=== PATIENT | male | born 1950 | race Caucasian/White ===

== ENCOUNTER 2017-09-22 14:37 | Observation (INO) | payer BC ==
[2017-09-22] MEDS ORDERED: BABY ASPIRIN 81 MG CHEW PO ONE (16:44)
--- NOTE | 2017-09-22 16:49 | ERPHSYRPT ---
- History of Present Illness Source: patient Exam Limitations: no limitations Patient Subjective Stated Complaint: intermittent pain to left forearm and left rib starting 2 to 3 days ago. denies injury. states felt better after being in the pool yesterday Triage Nursing Assessment: alert and orientd in n o distress. staes pain to left forearm and left lower ribs x 3 days.. comes and goes. denies injury. lungs clear bilaterally. staes has had cough x 3 days non productive. no deformity of pain to left forearm.. + radial pulse present Timing/Duration: day(s) (3 days) Severity: moderate Modifying Factors: Improves With: nothing Associated Symptoms: chest pain (pain left lateral ribs sharp), No nausea, No vomiting, No abdominal pain, No shortness of breath, No heartburn, No diaphoresis, No cough, No chills, No fever, No headaches, No loss of appetite, No malaise, No rash, No syncope, No seizure, No weakness Hx Tetanus, Diphtheria Vaccination/Date Given: No Hx Influenza Vaccination/Date Given: Yes (2011) Immunizations Up to Date: (unknown) <BETTY NAVARRO - Last Filed: 09/22/17 19:32> <YULIA GAMEZ - Last Filed: 09/23/17 01:42> - History of Present Illness Time Seen by Provider: 09/22/17 16:26 Physician History: 66-year-old white male with history of atherosclerotic coronary artery disease, hypercholesterolemia, high blood pressure arrives with complaints of pain in his left forearm and localize pain overlying his left lateral ribs, described as sharp continuous for 2-3 days not associated with shortness of breath no nausea no vomiting. Past medical history includes diabetes type 1, hypercholesterolemia, high blood pressure Degenerative disc disease Past surgical history includes cardiac stent, valve replacement, orthopedic surgery, (BETTY NAVARRO) Allergies/Adverse Reactions: No Known Drug Allergies Allergy (Unverified 06/30/12 10:35) Home Medications: Aspirin [Baby Aspirin] 81 mg PO DAILY 06/30/12 [History] Simvastatin 40 mg [Zocor 40 mg] 40 mg PO DAILY 06/05/13 [History] Docusate Sodium 100 mg [Colace 100 MG] 100 mg PO BID 09/22/17 [History] Isosorbide Mononitrate 30 mg [Imdur 30 MG] 30 mg PO DAILY 09/22/17 [History ] Losartan/Hydrochlorothiazide [Losartan-Hctz 100-25 mg Tab] 0.5 tablet PO DAILY 09/22/17 [History] Metformin HCl [Metformin HCl ER] 500 mg PO BID 09/22/17 [History] Metoprolol Tartrate 25 mg [Lopressor 25MG Tab] 25 mg PO BID 09/22/17 [ History] Pioglitazone HCl 15 mg PO DAILY 09/22/17 [History] - Review of Systems Constitutional: No Fever, No Chills Eyes: No Symptoms Ears, Nose, & Throat: No Symptoms Respiratory: No Cough, No Dyspnea Cardiac: Chest Pain (pain left lateral ribs sharp) Abdominal/Gastrointestinal: No Abdominal Pain, No Nausea, No Vomiting, No Diarrhea Genitourinary Symptoms: No Dysuria Musculoskeletal: Other (sharp pain left forearm) Skin: No Rash Neurological: No Dizziness, No Focal Weakness, No Sensory Changes Psychological: No Symptoms Endocrine: No Symptoms All Other Systems: Reviewed and Negative <BETTY NAVARRO - Sha Filed: 09/22/17 19:32> - Past Medical History Pertinent Past Medical History: Yes Neurological History: No Pertinent History ENT History: No Pertinent History Cardiac History: High Cholesterol, Hypertension Respiratory History: No Pertinent History Endocrine Medical History: Diabetes Type I Musculoskeletal History: No Pertinent History GI Medical History: No Pertinent History History: No Pertinent History Psycho-Social History: No Pertinent History Male Reproductive Disorders: No Pertinent History - Past Surgical History Past Surgical History: Yes Neuro Surgical History: No Pertinent History Cardiac: Cardiac Stent, Valve Replacement Gastrointestinal: No Pertinent History Genitourinary: No Pertinent History Musculoskeletal: Orthopedic Surgery Male Surgical History: No Pertinent History Other Surgical History: 2009 back,disc with annel and screws placed - Social History Smoking Status: Never smoker Exposure to second hand smoke: No Alcohol Use: None Drug Use: none Patient Lives Alone: No Significant Family History: no pertinent family hx <BETTY NAVARRO Filed: 09/22/17 19:32> - Physical Exam General Appearance: no apparent distress, alert Eye Exam: PERRL/EOMI, eyes nml inspection Ears, Nose, Throat Exam: normal ENT inspection, TMs normal, pharynx normal, moist mucous membranes Neck Exam: normal inspection, non-tender, supple, full range of motion Respiratory Exam: normal breath sounds, lungs clear, No respiratory distress Cardiovascular Exam: regular rate/rhythm, normal heart sounds, normal peripheral pulses Gastrointestinal/Abdomen Exam: soft, normal bowel sounds, No tenderness, No mass Back Exam: normal inspection, normal range of motion, No CVA tenderness, No vertebral tenderness Extremity Exam: normal inspection, normal range of motion, pelvis stable Neurologic Exam: alert, oriented x 3, cooperative, 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, normal mood/affect, nml cerebellar function, nml station & gait, sensation nml, No motor deficits Skin Exam: normal color, warm, dry, No rash SpO2 Interpretation: normal (97%) SpO2: 97 Oxygen Delivery: Room Air <BETTY NAVARRO - Last Filed: 09/22/17 19:32> - Nursing Vital Signs Nursing Vital Signs: Initial Vital Signs Temperature 97.8 F 09/22/17 14:50 Pulse Rate 73 09/22/17 14:50 Respiratory Rate 18 09/22/17 14:50 Blood Pressure 154/82 09/22/17 14:50 O2 Sat by Pulse Oximetry 98 09/22/17 14:50 Pain Scale Pain Intensity 0 - Course Nursing assessment & vital signs reviewed: Yes EKG Interpreted by Me: RATE (66 bpm), Sinus Rhythm, NORMAL AXIS, Other (EKG: sinus rhythm, complete left bundle-block, normal axis, no old EKG for comparison ) <BETTY NAVARRO - Last Filed: 09/22/17 19:32> Ordered Tests: Active Orders 24 hr Category Date Time Status Bedrest with BRP/BSC ROUTINE Activity 09/22/17 20:25 Active Hand Mold Maker STAT Care 09/22/17 16:44 Completed Code Status Order ROUTINE Care 09/22/17 20:25 Active EKG-ER Only STAT Care 09/22/17 16:44 Completed IV Care Q6H Care 09/22/17 20:25 Completed IV Insertion STAT Care 09/22/17 16:44 Completed Implement Chest Pain Pathway ROUTINE Care 09/22/17 20:[address] in Observation ROUTINE Care 09/22/17 20:25 Active Saji Hose, Apply ROUTINE Care 09/22/17 20:25 Active Telemetry ROUTINE Care 09/22/17 20:25 Active Weight,Daily 0600 Care 09/22/17 20:25 Active Cardiac Diet Diet 09/22/17 Breakfast Active CHEST 1 VIEW (PORTABLE) Stat Exams 09/22/17 16:44 Completed CHEST WITH CONTRAST [CT] Stat Exams 09/22/17 18:20 Completed CBC W DIFF Stat Lab 09/22/17 16:40 Completed CMP Stat Lab 09/22/17 16:40 Completed D-DIMER QUANTITATION Stat Lab 09/22/17 16:40 Completed LIPID PROFILE AM.LAB Lab 09/23/17 04:00 Ordered TROPONIN Q3H Lab 09/22/17 16:45 Completed TROPONIN Q3H Lab 09/22/17 19:45 Completed TROPONIN Q3H Lab 09/22/17 22:45 Completed TROPONIN Q3H Lab 09/23/17 01:45 Ordered TROPONIN Q3H Lab 09/23/17 04:45 Ordered EKG Q8HX2,QAMX3,PRN RT 09/22/17 20:25 Completed Pulse Oximetry Q4H RT 09/22/17 20:25 Active Medication Summary Generic Name Dose Route Start Last Admin Trade Name Freq PRN Reason Stop Dose Admin Acetaminophen 650 mg 09/22/17 20:25 Tylenol 325 Mg PO 10/22/17 20:24 Q4H PRN PRN PAIN AND/OR FEVER Al Hydrox/Mg Hydrox/Simethicone 30 ml 09/22/17 20:25 Maalox Es 30 Ml Unit Dose PO 10/22/17 20:24 Q4H PRN PRN INDIGESTION Aspirin 325 mg 09/23/17 10:00 Ecotrin 325 Mg PO 10/23/17 09:59 DAILY ROSENDA Docusate Sodium 100 mg 09/22/17 23:00 09/22/17 23:29 Colace 100 Mg PO 10/22/17 22:59 100 mg BID ROSENDA Administration Magnesium Hydroxide 30 - 60 ml 09/22/17 20:25 Milk Of Magnesia 30 Ml PO 10/22/17 20:24 QDP PRN CONSTIPATION Metoprolol Tartrate 25 mg 09/22/17 23:00 09/22/17 23:29 Lopressor 25mg Tab PO 10/22/17 22:59 25 mg BID ROSENDA Administration Ondansetron HCl 4 mg 09/22/17 20:25 Zofran 4 Mg/2 Ml Vial IV 10/22/17 20:24 Q4H PRN PRN NAUSEA/VOMITING Senna/Docusate Sodium 2 udtab 09/22/17 20:25 Senokot-S Tablet PO 10/22/17 20:24 BID PRN PRN CONSTIPATION Discontinued Medications Generic Name Dose Route Start Last Admin Trade Name Freq PRN Reason Stop Dose Admin Aspirin 243 mg 09/22/17 16:44 09/22/17 17:00 Baby Aspirin 81 Mg Chew PO 09/22/17 16:45 243 mg STAT ONE Administration Lab/Rad Data: Laboratory Result Diagrams 09/22/17 16:40 09/22/17 16:40 Laboratory Results 09/22/17 09/22/17 09/22/17 Range/Units 19:45 16:45 16:40 WBC (4.0-10.5) K/mm3 RBC (4.1-5.6) M/mm3 Hgb (12.5-18.0) gm/dl Hct (42-50) % MCV (78-100) fl MCH (26-32) pg MCHC (32-36) g/dl RDW (11.5-14.0) % Plt Count (150-450) K/mm3 MPV (6-9.5) fl Gran % (36.0-66.0) % Eos # (Auto) (0-0.5) Absolute Lymphs (auto) (1.0-4.6) Absolute Monos (auto) (0.0-1.3) Lymphocytes % (24.0-44.0) % Monocytes % (0.0-12.0) % Eosinophils % (0.00-5.0) % Basophils % (0.0-0.4) % Absolute Granulocytes (1.4-6.9) Basophils # (0-0.4) D-Dimer 1068 H* (215-500) ng/mL Sodium (137-145) mmol/L Potassium (3.5-5.1) mmol/L Chloride (98-107) mmol/L Carbon Dioxide (22-30) mmol/L Anion Gap (5-15) MEQ/L BUN (9-20) mg/dL Creatinine (0.66-1.25) mg/dL Estimated GFR ML/MIN Glucose (74-106) mg/dL Calcium (8.4-10.2) mg/dL Total Bilirubin (0.2-1.3) mg/dL AST (17-59) U/L ALT (0-50) U/L Alkaline Phosphatase (38-126) U/L Troponin I < 0.012 < 0.012 (0.000-0.034) ng/mL Serum Total Protein (6.3-8.2) g/dL Albumin (3.5-5.0) g/dL 09/22/17 09/22/17 Range/Units 16:40 16:40 WBC 7.1 (4.0-10.5) K/mm3 RBC 4.74 (4.1-5.6) M/mm3 Hgb 13.6 (12.5-18.0) gm/dl Hct 40.2 L (42-50) % MCV 84.8 (78-100) fl MCH 28.7 (26-32) pg MCHC 33.8 (32-36) g/dl RDW 15.6 H (11.5-14.0) % Plt Count 236 (150-450) K/mm3 MPV 11.1 H (6-9.5) fl Gran % 49.5 (36.0-66.0) % Eos # (Auto) 0.78 H (0-0.5) Absolute Lymphs (auto) 2.16 (1.0-4.6) Absolute Monos (auto) 0.62 (0.0-1.3) Lymphocytes % 30.5 (24.0-44.0) % Monocytes % 8.7 (0.0-12.0) % Eosinophils % 11.0 H (0.00-5.0) % Basophils % 0.3 (0.0-0.4) % Absolute Granulocytes 3.51 (1.4-6.9) Basophils # 0.02 (0-0.4) D-Dimer (215-500) ng/mL Sodium 140 (137-145) mmol/L Potassium 4.1 (3.5-5.1) mmol/L Chloride 103 (98-107) mmol/L Carbon Dioxide 27 (22-30) mmol/L Anion Gap 15.3 H (5-15) MEQ/L BUN 20 (9-20) mg/dL Creatinine 0.83 (0.66-1.25) mg/dL Estimated GFR > 60.0 ML/MIN Glucose 120 H (74-106) mg/dL Calcium 9.5 (8.4-10.2) mg/dL Total Bilirubin 0.20 (0.2-1.3) mg/dL AST 19 (17-59) U/L ALT 15 (0-50) U/L Alkaline Phosphatase 78 (38-126) U/L Troponin I (0.000-0.034) ng/mL Serum Total Protein 7.2 (6.3-8.2) g/dL Albumin 4.2 (3.5-5.0) g/dL - Progress Progress: improved <BETTY NAVARRO - Last Filed: 09/22/17 19:32> <YULIA GAMEZ - Last Filed: 09/23/17 01:42> - Progress Progress Note: 09/22/17 18:47 66-year-old white male with history of atherosclerotic coronary artery disease hypercholesterolemia high blood pressure diabetes, degenerative disc disease with history of cardiac stent valve replacement Arrives with complaint of left-sided of forearm pain sharp also complaining of left-sided chest pain sharp symptoms for 3 days Patient with elevated d-dimer of 1.068 patient's chest x-ray no acute changes EKG shows a complete left bundle-branch block I do not have an old EKG for comparison patient with 66 bpm normal axis Patient's troponin is within normal limits at less than 0.012 chest x-ray is unremarkable chemistry otherwise essentially normal with the exception of a glucose of 120 and an anion gap of 15.3 CBC is essentially normal I've discussed the patient's case with Dr. Harris she would like to place patient on observation telemetry and obtain serial troponins. However she would like to get a CTA of his chest this is been ordered and is pending. 09/22/17 18:50 Patient has received aspirin 243 mg orally He took 81 mg at home 09/22/17 19:30 The patient's case was trnsferred to dr Agosto secondary to shift change case was discussed with Dr Gamez. (BETTY NAVARRO) 09/22/17 20:23 The CTA chest is within normal limits. The patient is currently asymptomatic and has received ASA. Pt is a high risk patient and has been admitted to Dr Harris for chest pain. (YULIA GAMEZ) <BETTY NAVARRO - Last Filed: 09/22/17 19:32> - Departure Time of Disposition: 20:24 Departure Disposition: Observation Critical Care Time: No <YULIA GAMEZ - Last Filed: 09/23/17 01:42> - Departure Clinical Impression: Chest pain Qualifiers: Chest pain type: unspecified Qualified Code(s): R07.9 - Chest pain, unspecified Condition: Stable
[2017-09-22 16:51] LABS: BASOPHIL % 0.3 % (0.0-0.4); Basophil (Absolute #) 0.02 (0-0.4); Eosinophil (Absolute #) 0.78 (0-0.5); Granulocyte Absolute (ANC) 3.51 (1.4-6.9); Granulocytes % 49.5 % (36.0-66.0); Hematocrit 40.2 % (42-50); Hemoglobin 13.6 gm/dl (12.5-18.0); Lymphocyte (Absolute #) 2.16 (1.0-4.6); Lymphocytes % 30.5 % (24.0-44.0); Mean Cell Volume 84.8 fl (78-100); Mean Corpuscular Hemoglobin 28.7 pg (26-32); Mean Corpuscular Hgb Concent. 33.8 g/dl (32-36); Mean Platelet Volume 11.1 fl (6-9.5); Monocyte (Absolute #) 0.62 (0.0-1.3); Monocytes % 8.7 % (0.0-12.0); Platelet Count 236 K/mm3 (150-450); Red Blood Count 4.74 M/mm3 (4.1-5.6); Red Cell Distribution Width 15.6 % (11.5-14.0); White Blood Count 7.1 K/mm3 (4.0-10.5)
[2017-09-22 17:14] LABS: ALBUMIN 4.2 g/dL (3.5-5.0); ALKALINE PHOSPHATASE 78 U/L (38-126); ANION GAP 15.3 MEQ/L (5-15); BLOOD UREA NITROGEN 20 mg/dL (9-20); CHLORIDE 103 mmol/L (98-107); Calcium 9.5 mg/dL (8.4-10.2); Carbon Dioxide 27 mmol/L (22-30); Creatinine 1 0.83 mg/dL (0.66-1.25); Glucose 120 mg/dL (74-106); Potassium 4.1 mmol/L (3.5-5.1); SGOT/AST 19 U/L (17-59); SGPT/ALT 15 U/L (0-50); SODIUM 140 mmol/L (137-145); Total Protein 7.2 g/dL (6.3-8.2)
[2017-09-22] MEDS ORDERED: MILK OF MAGNESIA 30 ML PO PRN (20:25)
[2017-09-22] MEDS ORDERED: Zofran 4 MG/2 ML VIAL IV PRN (20:25)
[2017-09-22] MEDS ORDERED: MAALOX ES 30 ML UNIT DOSE PO PRN (20:25)
[2017-09-22] MEDS ORDERED: Senokot-S Tablet PO PRN (20:25)
[2017-09-22] MEDS ORDERED: TYLENOL 325 MG PO PRN (20:25)
--- NOTE | 2017-09-22 22:35 | XRAY ---
Indication: Chest pain. Elevated d-dimer. Multiple contiguous axial images obtained through the chest using 80 cc Isovue 370 contrast and PE protocol. Comparison: None There is satisfactory opacification of the pulmonary arteries to include the lobar and segmental branches. However mild respiration artifact limits evaluation of the more distal lobar and segmental branches. No filling defect or pulmonary embolus. Heart is not enlarged and demonstrates previous cardiac valvular replacement surgery. Aorta is normal in course and caliber. Left perihilar and subcarinal calcified nodes. No pathologic mediastinal lymphadenopathy. Examination of the lung parenchyma demonstrates anatomic variant for azygos lobe. Minimal bilateral dependent atelectasis and bibasilar subsegmental atelectasis/scarring. 3 mm noncalcified nodule in the posterior right upper lobe (image 18, series 4) and peripheral right lower lobe (image 32, series 4). No infiltrate or effusion. Bony thorax intact. Limited upper abdomen demonstrates fatty liver and calcified splenic granulomas. Impression: 1. Mild respiration artifact. No obvious pulmonary embolus. 2. Right upper and right lower lobe noncalcified micronodules. Findings possibly granulomatous as there is evidence for old granulomatous disease elsewhere. 3. Fatty liver. Comment: Preliminary interpretation was made by [facility]. No critical discrepancy. CTDI 20.07
--- NOTE | 2017-09-22 22:46 | XRAY ---
Indication: Pain. Comparison: None Portable chest underinflated and clear. Heart is not enlarged and demonstrates previous cardiac valvular replacement surgery. Bony thorax intact. Impression: Nonacute underinflated chest.
[2017-09-22] MEDS: Lopressor 25MG Tab PO SCH (23:29)
[2017-09-22] MEDS: Colace 100 MG PO SCH (23:29)
--- NOTE | 2017-09-23 00:21 | PCM.HP ---
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 He started having constant L lower chest pain that he is unable to characterize, denies accompanying nausea, diaphoresis, or SOB. His L arm was also having constant pain. It was a little better with swimming. Now his arm pain is resolved and the chest pain is 1-2/10. His d-dimer was elevated but his CTA chest was negative for PE. EKG with LBBB but no comparison available; wide QRS with J point elevation but does not appear acute. He was admitted for chest pain rule out [place]. Troponins neg x 2. Dr. Farooq did his valve replacement and the pt states he was on warfarin x 3 mo but was told to stop it at that time and now he takes an 81mg ASA daily. - Review of Systems Respiratory: Cough Cardiac: Chest Pain Musculoskeletal: Other (L arm pain) All Other Systems: Reviewed and Negative Medications & Allergies Home Medications: Home Medication List Aspirin [Baby Aspirin] 81 mg PO DAILY 06/30/12 [History Confirmed 09/22/17] Simvastatin 40 mg [Zocor 40 mg] 40 mg PO DAILY 06/05/13 [History Confirmed 09/22] Docusate Sodium 100 mg [Colace 100 MG] 100 mg PO BID 09/22/17 [History Confirmed 09/22/17] Isosorbide Mononitrate 30 mg [Imdur 30 MG] 30 mg PO DAILY 09/22/17 [ History Confirmed 09/22/17] Losartan/Hydrochlorothiazide [Losartan-Hctz 100-25 mg Tab] 0.5 tablet PO DAILY 09/22/17 [History Confirmed 09/22/17] Metformin HCl [Metformin HCl ER] 500 mg PO BID 09/22/17 [History Confirmed 09/22] Metoprolol Tartrate 25 mg [Lopressor 25MG Tab] 25 mg PO BID 09/22/17 [ History Confirmed 09/22/17] Pioglitazone HCl 15 mg PO DAILY 09/22/17 [History Confirmed 09/22/17] Allergies/Adverse Reactions: Allergies Allergy/AdvReac Type Severity Reaction Status Date / Time No Known Drug Allergies Allergy Unverified 06/30/12 10:35 - Past Medical History Past Medical History: Yes Neurological History: No Pertinent History ENT History: No Pertinent History Cardiac History: High Cholesterol, Hypertension Respiratory History: No Pertinent History Endocrine Medical History: Diabetes Type I Musculoskelatal History: No Pertinent History GI Medical History: No Pertinent History History: No Pertinent History Pyscho-Social History: No Pertinent History Male Reproductive Disorders: No Pertinent History - Past Surgical History Past Surgical History: Yes Neuro Surgical History: No Pertinent History Cardiac History: Valve Replacement GI Surgical History: No Pertinent History, Hernia Repair Genitourinary Surgical Hx: No Pertinent History Musculskeletal Surgical Hx: Orthopedic Surgery Male Surgical History: No Pertinent History Other Surgical History: 2009 back,disc with annel and screws placed - Social History Smoking Status: Never smoker Exposure to second hand smoke: No Alcohol: None Drug Use: none Significant Family History: no pertinent family hx - Physical Exam Vital Signs: Vital Signs - 24 hr Temp Pulse Resp BP Pulse Ox 09/22/17 21:23 97.8 F 57 L 16 96 09/22/17 19:32 97 09/22/17 19:20 78 16 114/81 97 09/22/17 16:40 78 18 118/71 09/22/17 15:53 63 14 133/72 97 09/22/17 14:50 97.8 F 73 18 154/82 98 General Appearance: no apparent distress, alert Neurologic Exam: oriented x 3, cooperative Eye Exam: eyes nml inspection Ears, Nose, Throat Exam: moist mucous membranes Respiratory Exam: normal breath sounds, lungs clear, No crackles/rales, No rhonchi, No wheezing Cardiovascular Exam: regular rate/rhythm, normal heart sounds, murmur (III/ sys murmur best heard L sternal border) Gastrointestinal/Abdomen Exam: soft, normal bowel sounds, No tenderness, No distention, No mass, No guarding, No rebound Back Exam: normal inspection, No rash Extremity Exam: normal inspection, No pedal edema, No swelling Skin Exam: normal color, warm, dry, No rash Results - Labs Lab/Micro Results: Lab Results-Last 24 Hours 09/22/17 09/22/17 09/22/17 Range/Units 16:40 16:40 16:40 WBC 7.1 (4.0-10.5) K/mm3 RBC 4.74 (4.1-5.6) M/mm3 Hgb 13.6 (12.5-18.0) gm/dl Hct 40.2 L (42-50) % MCV 84.8 (78-100) fl MCH 28.7 (26-32) pg MCHC 33.8 (32-36) g/dl RDW 15.6 H (11.5-14.0) % Plt Count 236 (150-450) K/mm3 MPV 11.1 H (6-9.5) fl Gran % 49.5 (36.0-66.0) % Eos # (Auto) 0.78 H (0-0.5) Absolute Lymphs (auto) 2.16 (1.0-4.6) Absolute Monos (auto) 0.62 (0.0-1.3) Lymphocytes % 30.5 (24.0-44.0) % Monocytes % 8.7 (0.0-12.0) % Eosinophils % 11.0 H (0.00-5.0) % Basophils % 0.3 (0.0-0.4) % Absolute Granulocytes 3.51 (1.4-6.9) Basophils # 0.02 (0-0.4) D-Dimer 1068 H* (215-500) ng/mL Sodium 140 (137-145) mmol/L Potassium 4.1 (3.5-5.1) mmol/L Chloride 103 (98-107) mmol/L Carbon Dioxide 27 (22-30) mmol/L Anion Gap 15.3 H (5-15) MEQ/L BUN 20 (9-20) mg/dL Creatinine 0.83 (0.66-1.25) mg/dL Estimated GFR > 60.0 ML/MIN Glucose 120 H (74-106) mg/dL Calcium 9.5 (8.4-10.2) mg/dL Total Bilirubin 0.20 (0.2-1.3) mg/dL AST 19 (17-59) U/L ALT 15 (0-50) U/L Alkaline Phosphatase 78 (38-126) U/L Troponin I (0.000-0.034) ng/mL Serum Total Protein 7.2 (6.3-8.2) g/dL Albumin 4.2 (3.5-5.0) g/dL 09/22/17 09/22/17 09/22/17 Range/Units 16:45 19:45 22:45 WBC (4.0-10.5) K/mm3 RBC (4.1-5.6) M/mm3 Hgb (12.5-18.0) gm/dl Hct (42-50) % MCV (78-100) fl MCH (26-32) pg MCHC (32-36) g/dl RDW (11.5-14.0) % Plt Count (150-450) K/mm3 MPV (6-9.5) fl Gran % (36.0-66.0) % Eos # (Auto) (0-0.5) Absolute Lymphs (auto) (1.0-4.6) Absolute Monos (auto) (0.0-1.3) Lymphocytes % (24.0-44.0) % Monocytes % (0.0-12.0) % Eosinophils % (0.00-5.0) % Basophils % (0.0-0.4) % Absolute Granulocytes (1.4-6.9) Basophils # (0-0.4) D-Dimer (215-500) ng/mL Sodium (137-145) mmol/L Potassium (3.5-5.1) mmol/L Chloride (98-107) mmol/L Carbon Dioxide (22-30) mmol/L Anion Gap (5-15) MEQ/L BUN (9-20) mg/dL Creatinine (0.66-1.25) mg/dL Estimated GFR ML/MIN Glucose (74-106) mg/dL Calcium (8.4-10.2) mg/dL Total Bilirubin (0.2-1.3) mg/dL AST (17-59) U/L ALT (0-50) U/L Alkaline Phosphatase (38-126) U/L Troponin I < 0.012 < 0.012 < 0.012 (0.000-0.034) ng/mL Serum Total Protein (6.3-8.2) g/dL Albumin (3.5-5.0) g/dL - Radiology Impressions Radiology Exams & Impressions: Radiology Procedures Category Date Time Status CHEST 1 VIEW (PORTABLE) Stat Exams 09/22/17 16:44 Completed CHEST WITH CONTRAST [CT] Stat Exams 09/22/17 18:20 Completed - Other Procedures and Tests Respiratory Therapy 09/23/17 05:00 EKG DAILY 09/24/17 05:00 EKG DAILY 09/25/17 05:00 EKG DAILY Assessment/Plan (1) Chest pain Current Visit: Yes Status: Acute Qualifiers: Chest pain type: unspecified Qualified Code(s): R07.9 - Chest pain, unspecified Assessment & Plan: Troponins neg x 2. EKG appears non-acute. See below. Code(s): R07.9 - CHEST PAIN, UNSPECIFIED (2) History of artificial heart valve Current Visit: Yes Status: Chronic Assessment & Plan: Would like to double check with thoracic surgeon that he does not want pt on thinner chronically; this may have to wait until Monday. Code(s): Z95.2 - PRESENCE OF PROSTHETIC HEART VALVE (3) Left bundle branch block Current Visit: Yes Status: Acute Assessment & Plan: Will discuss with cardiology in the morning, unless needs to be discussed acutely if change in pt's status. Code(s): I44.7 - LEFT BUNDLE-BRANCH BLOCK, UNSPECIFIED
[2017-09-23 06:12] LABS: Risk Ratio 4.7
[2017-09-23] MEDS ORDERED: Sodium Chloride 0.9% 10 ML FLUSH Syringe IV PRN (08:30)
[2017-09-23] MEDS: Colace 100 MG PO SCH (09:59)
[2017-09-23] MEDS ORDERED: [UNRECOGNIZED DRUG - OTHER] PO SCH (10:00)
[2017-09-23] MEDS ORDERED: NON-FORMULARY ITEM (Simvastatin 40 Mg [Zocor 40 Mg] 40 MG) PO SCH (10:00)
[2017-09-23] MEDS ORDERED: Ecotrin 325 MG PO SCH (10:00)
[2017-09-23] MEDS ORDERED: Imdur 30 MG PO SCH (10:00)
[2017-09-23] MEDS ORDERED: hydroDIURIL 25 MG PO SCH (10:00)
[2017-09-23] MEDS ORDERED: ENOXAPARIN SODIUM SQ SCH (10:00)
[2017-09-23] MEDS ORDERED: Cozaar 50 MG PO SCH (10:00)
[2017-09-23] MEDS ORDERED: LOSARTAN PO SCH (10:00)
[2017-09-23] MEDS ORDERED: Actos 30 MG PO SCH (10:00)
[2017-09-23] MEDS ORDERED: HYDROCHLOROTHIAZIDE PO SCH (10:00)
[2017-09-23] MEDS ORDERED: PIOGLITAZONE HCL 15 MG PO SCH (10:00)
[2017-09-23] MEDS: Lopressor 25MG Tab PO SCH (10:01)
--- NOTE | 2017-09-23 13:31 | PCM.DS ---
Discharge Summary Date of Admission: 09/22/17 20:34 Admitting Physician: ADI ROJO Primary Care Provider: STEW DAVIS Allergies Allergies No Known Drug Allergies Allergy (Unverified 06/30/12 10:35) Hospital Summary - Hospital Course Hospital Course: Pt admitted through ER with L sided chest/rib pain and L arm pain. Hx of recent (May 2017) bioprosthetic aortic valve replacement. On admission, EKG sinus rhythm with widened QRS, LBBB, and J-point elevation. Troponins neg x 5. I did see the patient last night and he was largely asymptomatic at that time. This morning he has intermittent 2/10 chest discomfort related to palpating the area, and intermittent L arm discomfort related to movement. I spoke with the computational physicist long wall mining machine helper and reveiwed the EKG findings and will be discharging the patient to home today. - Vitals & Intake/Output Vital Signs: Vital Signs Temperature 98.2 F 09/23/17 11:30 Pulse Rate 67 09/23/17 11:30 Respiratory Rate 18 09/23/17 11:30 Blood Pressure 134/79 09/23/17 11:30 O2 Sat by Pulse Oximetry 96 09/23/17 11:30 Intake & Output: Intake & Output 09/21/17 09/22/17 09/23/17 09/24/17 11:59 11:59 11:59 11:59 Intake Total 820 Balance 820 Weight 89.7 kg - Lab Result Diagrams: 09/22/17 16:40 09/22/17 16:40 Lab Results-Last 24 Hrs: Accuchecks Date 09/23/17 Date 09/23/17 Time 11:30 Time 07:30 Accucheck Value: 142 Accucheck Value: 102 Lab Results-Last 24 Hours 09/22/17 09/22/17 09/22/17 Range/Units 16:40 16:40 16:40 WBC 7.1 (4.0-10.5) K/mm3 RBC 4.74 (4.1-5.6) M/mm3 Hgb 13.6 (12.5-18.0) gm/dl Hct 40.2 L (42-50) % MCV 84.8 (78-100) fl MCH 28.7 (26-32) pg MCHC 33.8 (32-36) g/dl RDW 15.6 H (11.5-14.0) % Plt Count 236 (150-450) K/mm3 MPV 11.1 H (6-9.5) fl Gran % 49.5 (36.0-66.0) % Eos # (Auto) 0.78 H (0-0.5) Absolute Lymphs (auto) 2.16 (1.0-4.6) Absolute Monos (auto) 0.62 (0.0-1.3) Lymphocytes % 30.5 (24.0-44.0) % Monocytes % 8.7 (0.0-12.0) % Eosinophils % 11.0 H (0.00-5.0) % Basophils % 0.3 (0.0-0.4) % Absolute Granulocytes 3.51 (1.4-6.9) Basophils # 0.02 (0-0.4) D-Dimer 1068 H* (215-500) ng/mL Sodium 140 (137-145) mmol/L Potassium 4.1 (3.5-5.1) mmol/L Chloride 103 (98-107) mmol/L Carbon Dioxide 27 (22-30) mmol/L Anion Gap 15.3 H (5-15) MEQ/L BUN 20 (9-20) mg/dL Creatinine 0.83 (0.66-1.25) mg/dL Estimated GFR > 60.0 ML/MIN Glucose 120 H (74-106) mg/dL Calcium 9.5 (8.4-10.2) mg/dL Total Bilirubin 0.20 (0.2-1.3) mg/dL AST 19 (17-59) U/L ALT 15 (0-50) U/L Alkaline Phosphatase 78 (38-126) U/L Troponin I (0.000-0.034) ng/mL Serum Total Protein 7.2 (6.3-8.2) g/dL Albumin 4.2 (3.5-5.0) g/dL Triglycerides (30-150) mg/dL Cholesterol (50-200) mg/dL LDL Cholesterol (30-100) mg/dL HDL Cholesterol (40-60) mg/dL Heart Disease Risk Ratio 09/22/17 09/22/17 09/22/17 Range/Units 16:45 19:45 22:45 WBC (4.0-10.5) K/mm3 RBC (4.1-5.6) M/mm3 Hgb (12.5-18.0) gm/dl Hct (42-50) % MCV (78-100) fl MCH (26-32) pg MCHC (32-36) g/dl RDW (11.5-14.0) % Plt Count (150-450) K/mm3 MPV (6-9.5) fl Gran % (36.0-66.0) % Eos # (Auto) (0-0.5) Absolute Lymphs (auto) (1.0-4.6) Absolute Monos (auto) (0.0-1.3) Lymphocytes % (24.0-44.0) % Monocytes % (0.0-12.0) % Eosinophils % (0.00-5.0) % Basophils % (0.0-0.4) % Absolute Granulocytes (1.4-6.9) Basophils # (0-0.4) D-Dimer (215-500) ng/mL Sodium (137-145) mmol/L Potassium (3.5-5.1) mmol/L Chloride (98-107) mmol/L Carbon Dioxide (22-30) mmol/L Anion Gap (5-15) MEQ/L BUN (9-20) mg/dL Creatinine (0.66-1.25) mg/dL Estimated GFR ML/MIN Glucose (74-106) mg/dL Calcium (8.4-10.2) mg/dL Total Bilirubin (0.2-1.3) mg/dL AST (17-59) U/L ALT (0-50) U/L Alkaline Phosphatase (38-126) U/L Troponin I < 0.012 < 0.012 < 0.012 (0.000-0.034) ng/mL Serum Total Protein (6.3-8.2) g/dL Albumin (3.5-5.0) g/dL Triglycerides (30-150) mg/dL Cholesterol (50-200) mg/dL LDL Cholesterol (30-100) mg/dL HDL Cholesterol (40-60) mg/dL Heart Disease Risk Ratio 09/23/17 09/23/17 09/23/17 Range/Units 02:00 04:50 04:50 WBC (4.0-10.5) K/mm3 RBC (4.1-5.6) M/mm3 Hgb (12.5-18.0) gm/dl Hct (42-50) % MCV (78-100) fl MCH (26-32) pg MCHC (32-36) g/dl RDW (11.5-14.0) % Plt Count (150-450) K/mm3 MPV (6-9.5) fl Gran % (36.0-66.0) % Eos # (Auto) (0-0.5) Absolute Lymphs (auto) (1.0-4.6) Absolute Monos (auto) (0.0-1.3) Lymphocytes % (24.0-44.0) % Monocytes % (0.0-12.0) % Eosinophils % (0.00-5.0) % Basophils % (0.0-0.4) % Absolute Granulocytes (1.4-6.9) Basophils # (0-0.4) D-Dimer (215-500) ng/mL Sodium (137-145) mmol/L Potassium (3.5-5.1) mmol/L Chloride (98-107) mmol/L Carbon Dioxide (22-30) mmol/L Anion Gap (5-15) MEQ/L BUN (9-20) mg/dL Creatinine (0.66-1.25) mg/dL Estimated GFR ML/MIN Glucose (74-106) mg/dL Calcium (8.4-10.2) mg/dL Total Bilirubin (0.2-1.3) mg/dL AST (17-59) U/L ALT (0-50) U/L Alkaline Phosphatase (38-126) U/L Troponin I < 0.012 < 0.012 (0.000-0.034) ng/mL Serum Total Protein (6.3-8.2) g/dL Albumin (3.5-5.0) g/dL Triglycerides 100 (30-150) mg/dL Cholesterol 140 (50-200) mg/dL LDL Cholesterol 74 (30-100) mg/dL HDL Cholesterol 30 L (40-60) mg/dL Heart Disease Risk Ratio 4.7 Micro Results-Entire Visit: Accuchecks Date 09/23/17 Date 09/23/17 Time 11:30 Time 07:30 Accucheck Value: 142 Accucheck Value: 102 - Radiology Exams Ordered Rad Exams-Entire Visit: Radiology Procedures Category Date Time Status CHEST 1 VIEW (PORTABLE) Stat Exams 09/22/17 16:44 Completed CHEST WITH CONTRAST [CT] Stat Exams 09/22/17 18:20 Completed - Procedures and Test Procedures and Tests throughout Hospitalization: Therapy Orders & Screens 09/22/17 20:25 EKG Q8HX2,QAMX3,PRN Comment: 09/22/17 23:10 EKG ROUTINE Comment: Diagnosis: Chest pain rule out ACS 09/23/17 05:00 EKG DAILY Comment: Diagnosis: Chest pain rule out ACS 09/24/17 05:00 EKG DAILY Comment: Diagnosis: Chest pain rule out ACS 09/25/17 05:00 EKG DAILY Comment: Diagnosis: Chest pain rule out ACS Discharge Exam General Appearance: no apparent distress, alert Neurologic Exam: oriented x 3, cooperative Skin Exam: normal color, warm, dry, No rash Eye Exam: eyes nml inspection Ears, Nose, Throat Exam: moist mucous membranes Neck Exam: normal inspection Respiratory Exam: normal breath sounds, lungs clear, No crackles/rales, No rhonchi, No wheezing Cardiovascular Exam: regular rate/rhythm, normal heart sounds, murmur (I/ sys murmur) Gastrointestinal/Abdomen Exam: soft, normal bowel sounds, No tenderness, No distention, No mass, No guarding, No rebound Extremity Exam: normal inspection, No pedal edema, No swelling Final Diagnosis/Problem List - Final Discharge Diagnosis/Problem (1) Chest pain Current Visit: Yes Status: Acute Assessment & Plan: IN ruled out. EKG with LBBB and j point elevation but no appreciable change since July 2017 EKG at outside facility. Troponins completely negative x 5. I did discuss with computational physicist long wall mining machine helper. F/u with PCP in 1 week. (2) History of artificial heart valve Current Visit: Yes Status: Chronic (3) Left bundle branch block Current Visit: Yes Status: Chronic - Discharge Disposition: Home, Self-Care Condition: Stable Prescriptions: Continue Aspirin [Baby Aspirin] 81 mg PO DAILY Simvastatin 40 mg [Zocor 40 mg] 40 mg PO DAILY Isosorbide Mononitrate 30 mg [Imdur 30 MG] 30 mg PO DAILY Losartan/Hydrochlorothiazide [Losartan-Hctz 100-25 mg Tab] 0.5 tablet PO DAILY Pioglitazone HCl 15 mg PO DAILY Metformin HCl [Metformin HCl ER] 500 mg PO BID Metoprolol Tartrate 25 mg [Lopressor 25MG Tab] 25 mg PO BID Docusate Sodium 100 mg [Colace 100 MG] 100 mg PO BID Follow up with: STEW DAVIS [Primary Care Provider] - 1 Week
[2017-09-23] MEDS ORDERED: Sodium Chloride 0.9% 10 ML FLUSH Syringe IV SCH (14:00)
[2017-09-23 15:48] VITALS: BP 119/72; PULSE 87; O2SAT 97
[2017-09-23] MEDS ORDERED: ZOCOR 20MG PO SCH (22:00)
== END 2017-09-23 15:48 | disposition home or self-care (01) ==
LOC: ED 14:37 → MED SURG 20:34
PROVIDERS: ADMIT Family Medicine; ATTEND Family Medicine
DX: R07.89 Other chest pain (principal); Z95.2 Presence of prosthetic heart valve; I44.7 Left bundle-branch block, unspecified; I25.10 Atherosclerotic heart disease of native coronary artery without angina pectoris; E78.00 Pure hypercholesterolemia, unspecified; I10 Essential (primary) hypertension; E10.8 Type 1 diabetes mellitus with unspecified complications; Z79.4 Long term (current) use of insulin; Z79.899 Other long term (current) drug therapy
CPT/HCPCS: 36000; 36415; 71045; 71260; 80053; 80061; 83721; 84484; 85025; 85379; 93005; 93041; 93268; 99285; J1650; A9270-GY; G0378

== ENCOUNTER 2018-02-15 22:47 | Emergency (ER) | payer BC ==
[2018-02-15] MEDS ORDERED: MORPHINE SULFATE 4 MG INJ IV ONE (23:33)
[2018-02-15] MEDS ORDERED: Sodium Chloride 0.9% 1000 ML 1,000 ML IV STA (23:33)
[2018-02-15] MEDS ORDERED: Zofran 4 MG/2 ML VIAL IV ONE (23:33)
--- NOTE | 2018-02-15 23:33 | ERPHSYRPT ---
- History of Present Illness Time Seen by Provider: 02/15/18 23:29 Historian: patient, family Exam Limitations: no limitations Patient Subjective Stated Complaint: Left sided rib pain Triage Nursing Assessment: Patient ambulated back to ED and transferred self to bed. Patient A+O X 3. Patient complains of left sided rib pain 09/26. Patient denies injuring himself to cause pain. Left side of ribs noted to be swollen and tender. No visible areas or redness noted. Physician History: The patient is a 67-year-old male with his complaining of worsening right sided abdominal pain for one week. He says this just below his left rib. He denies nausea, vomiting, or diarrhea. He denies any urinary problems. He denies fever or chills. The pain was worse all day today. His past medical history is significant for aortic valve replacement, DM, high cholesterol, and HTN. Timing/Duration: week(s) (1), gradual onset, worse Activities at Onset: none Quality: aching Abdominal Pain Onset Location: LLQ Pain Radiation: no radiation Severity of Pain-Max: moderate Severity of Pain-Current: moderate Modifying Factors: Improves With: nothing Associated Symptoms: No diarrhea, No nausea, No vomiting Previous symptoms: no prior history Allergies/Adverse Reactions: No Known Drug Allergies Allergy (Verified 02/15/18 23:06) Home Medications: Aspirin [Baby Aspirin] 81 mg PO DAILY 06/30/12 [History] Simvastatin 40 mg [Zocor 40 mg] 40 mg PO DAILY 06/05/13 [History] Isosorbide Mononitrate 30 mg [Imdur 30 MG] 30 mg PO DAILY 09/22/17 [History ] Losartan/Hydrochlorothiazide [Losartan-Hctz 100-25 mg Tab] 0.5 tablet PO DAILY 09/22/17 [History] Metformin HCl [Metformin HCl ER] 500 mg PO BID 09/22/17 [History] Metoprolol Tartrate 25 mg [Lopressor 25MG Tab] 25 mg PO BID 09/22/17 [ History] Pioglitazone HCl 15 mg PO DAILY 09/22/17 [History] Hx Tetanus, Diphtheria Vaccination/Date Given: Yes Hx Influenza Vaccination/Date Given: Yes Hx Pneumococcal Vaccination/Date Given: Yes Immunizations Up to Date: Yes - Review of Systems Constitutional: No Fever, No Chills Eyes: No Symptoms Ears, Nose, & Throat: No Symptoms Respiratory: No Symptoms Cardiac: No Chest Pain, No Edema, No Syncope Abdominal/Gastrointestinal: Abdominal Pain, No Nausea, No Vomiting, No Diarrhea Genitourinary Symptoms: No Dysuria Musculoskeletal: No Back Pain, No Neck Pain Skin: No Rash Neurological: No Dizziness, No Focal Weakness, No Sensory Changes Psychological: No Symptoms Endocrine: No Symptoms Hematologic/Lymphatic: No Symptoms Immunological/Allergic: No Symptoms All Other Systems: Reviewed and Negative - Past Medical History Pertinent Past Medical History: Yes Neurological History: No Pertinent History ENT History: No Pertinent History Cardiac History: High Cholesterol, Hypertension Respiratory History: No Pertinent History Endocrine Medical History: Diabetes Type I Musculoskeletal History: No Pertinent History GI Medical History: No Pertinent History History: No Pertinent History Psycho-Social History: No Pertinent History Male Reproductive Disorders: No Pertinent History - Past Surgical History Past Surgical History: Yes Neuro Surgical History: No Pertinent History Cardiac: Valve Replacement Gastrointestinal: No Pertinent History, Hernia Repair Genitourinary: No Pertinent History Musculoskeletal: Orthopedic Surgery Male Surgical History: No Pertinent History Other Surgical History: 2009 back,disc with annel and screws placed - Social History Smoking Status: Never smoker Exposure to second hand smoke: No Alcohol Use: None Drug Use: none Patient Lives Alone: No Significant Family History: no pertinent family hx - Nursing Vital Signs Nursing Vital Signs: Initial Vital Signs Temperature 97.7 F 02/15/18 22:48 Pulse Rate 66 02/15/18 22:48 Respiratory Rate 18 02/15/18 22:48 Blood Pressure 147/75 02/15/18 22:48 O2 Sat by Pulse Oximetry 98 02/15/18 22:48 Pain Scale Pain Intensity 8 - Physical Exam General Appearance: no apparent distress, alert Eye Exam: PERRL/EOMI, eyes nml inspection Ears, Nose, Throat Exam: normal ENT inspection, pharynx normal, moist mucous membranes Neck Exam: normal inspection, non-tender, supple, full range of motion Respiratory Exam: normal breath sounds, lungs clear, No respiratory distress Cardiovascular Exam: regular rate/rhythm, normal heart sounds Gastrointestinal/Abdomen Exam: tenderness (LLQ) Rectal Exam: not done Back Exam: normal inspection, normal range of motion, No CVA tenderness, No vertebral tenderness Extremity Exam: normal inspection, normal range of motion, pelvis stable Neurologic Exam: alert, oriented x 3, cooperative, normal mood/affect, nml cerebellar function, sensation nml, No motor deficits Skin Exam: normal color, warm, dry SpO2 Interpretation: normal SpO2: 98 Oxygen Delivery: Room Air - CT Exams Abdomen/Pelvis CT Interpretation: Negative, Tele-radiologist Report (per Dr Wiggins) Ordered Tests: Active Orders 24 hr Category Date Time Status Clean Catch Urine Specimen STAT Care 02/15/18 23:33 Active IV Insertion STAT Care 02/15/18 23:33 Active AMYLASE Stat Lab 02/15/18 23:45 Completed CBC W DIFF Stat Lab 02/15/18 23:45 Completed CMP Stat Lab 02/15/18 23:45 Completed LIPASE Stat Lab 02/15/18 23:45 Completed Lactic Acid Stat Lab 02/15/18 23:33 Completed TROPONIN Q3H Lab 02/15/18 23:45 Completed TROPONIN Q3H Lab 02/16/18 02:45 Ordered TROPONIN Q3H Lab 02/16/18 05:45 Ordered TROPONIN Q3H Lab 02/16/18 08:45 Ordered TROPONIN Q3H Lab 02/16/18 11:45 Ordered UA W/RFX UR CULTURE Stat Lab 02/15/18 23:45 Completed Medication Summary Discontinued Medications Generic Name Dose Route Start Last Admin Trade Name Freq PRN Reason Stop Dose Admin Sodium Chloride 1,000 mls @ 999 mls/hr 02/15/18 23:33 02/16/18 00:13 Sodium Chloride 0.9% 1000 Ml IV 02/16/18 00:33 999 mls/hr .Q1H1M STA Administration Sodium Chloride Confirm 02/16/18 00:11 Sodium Chloride 0.9% 1000 Ml Administered 02/16/18 00:12 Dose 1,000 mls @ ud .ROUTE .STK-MED ONE Morphine Sulfate 4 mg 02/15/18 23:33 02/16/18 00:14 Morphine Sulfate 4 Mg Inj IV 02/15/18 23:34 4 mg STAT ONE Administration Morphine Sulfate Confirm 02/16/18 00:11 Morphine Sulfate 4 Mg Inj Administered 02/16/18 00:12 Dose 4 mg .ROUTE .STK-MED ONE Ondansetron HCl 4 mg 02/15/18 23:33 02/16/18 00:14 Zofran 4 Mg/2 Ml Vial IV 11/29/18 23:34 4 mg STAT ONE Administration Ondansetron HCl Confirm 02/16/18 00:11 Zofran 4 Mg/2 Ml Vial Administered 02/16/18 00:12 Dose 4 mg .ROUTE .STK-MED ONE Lab/Rad Data: Laboratory Result Diagrams 02/15/18 23:45 02/15/18 23:45 Laboratory Results 02/16/18 02/15/18 02/15/18 Range/Units 00:00 23:45 23:45 WBC (4.0-10.5) K/mm3 RBC (4.1-5.6) M/mm3 Hgb (12.5-18.0) gm/dl Hct (42-50) % MCV (78-100) fl MCH (26-32) pg MCHC (32-36) g/dl RDW (11.5-14.0) % Plt Count (150-450) K/mm3 MPV (6-9.5) fl Gran % (36.0-66.0) % Eos # (Auto) (0-0.5) Absolute Lymphs (auto) (1.0-4.6) Absolute Monos (auto) (0.0-1.3) Lymphocytes % (24.0-44.0) % Monocytes % (0.0-12.0) % Eosinophils % (0.00-5.0) % Basophils % (0.0-0.4) % Absolute Granulocytes (1.4-6.9) Basophils # (0-0.4) Sodium (137-145) mmol/L Potassium (3.5-5.1) mmol/L Chloride (98-107) mmol/L Carbon Dioxide (22-30) mmol/L Anion Gap (5-15) MEQ/L BUN (9-20) mg/dL Creatinine (0.66-1.25) mg/dL Estimated GFR ML/MIN Glucose (74-106) mg/dL Lactic Acid 1.2 (0.4-2.0) Calcium (8.4-10.2) mg/dL Total Bilirubin (0.2-1.3) mg/dL AST (17-59) U/L ALT (0-50) U/L Alkaline Phosphatase (38-126) U/L Troponin I < 0.012 (0.000-0.034) ng/mL Serum Total Protein (6.3-8.2) g/dL Albumin (3.5-5.0) g/dL Amylase (30-110) U/L Lipase (23-300) U/L Urine Color STRAW (YELLOW) Urine Appearance CLEAR (CLEAR) Urine pH 6.0 (5-6) Ur Specific [place] 1.010 (1.005-1.025) Urine Protein NEGATIVE (Negative) Urine Ketones NEGATIVE (NEGATIVE) Urine Blood NEGATIVE (0-5) Dominick/ul Urine Nitrite NEGATIVE (NEGATIVE) Urine Bilirubin NEGATIVE (NEGATIVE) Urine Urobilinogen NEGATIVE (0-1) mg/dL Ur Leukocyte Esterase NEGATIVE (NEGATIVE) Urine WBC (Auto) NONE SEEN (0-5) /HPF Urine RBC (Auto) NONE (0-2) /HPF U Epithel Cells (Auto) NONE (FEW) /HPF Urine Bacteria (Auto) NONE SEEN (NEGATIVE) /HPF Urine Mucus (Auto) SLIGHT (NEGATIVE) /HPF Urine Culture Reflexed NO (NO) Urine Glucose NEGATIVE (NEGATIVE) mg/dL 02/15/18 02/15/18 Range/Units 23:45 23:45 WBC 7.7 (4.0-10.5) K/mm3 RBC 4.95 (4.1-5.6) M/mm3 Hgb 14.6 (12.5-18.0) gm/dl Hct 43.8 (42-50) % MCV 88.5 (78-100) fl MCH 29.5 (26-32) pg MCHC 33.3 (32-36) g/dl RDW 14.6 H (11.5-14.0) % Plt Count 240 (150-450) K/mm3 MPV 10.2 H (6-9.5) fl Gran % 50.4 (36.0-66.0) % Eos # (Auto) 0.52 H (0-0.5) Absolute Lymphs (auto) 2.58 (1.0-4.6) Absolute Monos (auto) 0.70 (0.0-1.3) Lymphocytes % 33.4 (24.0-44.0) % Monocytes % 9.1 (0.0-12.0) % Eosinophils % 6.7 H (0.00-5.0) % Basophils % 0.4 (0.0-0.4) % Absolute Granulocytes 3.90 (1.4-6.9) Basophils # 0.03 (0-0.4) Sodium 139 (137-145) mmol/L Potassium 4.3 (3.5-5.1) mmol/L Chloride 103 (98-107) mmol/L Carbon Dioxide 27 (22-30) mmol/L Anion Gap 13.8 (5-15) MEQ/L BUN 25 H (9-20) mg/dL Creatinine 0.90 (0.66-1.25) mg/dL Estimated GFR > 60.0 ML/MIN Glucose 106 (74-106) mg/dL Lactic Acid (0.4-2.0) Calcium 9.7 (8.4-10.2) mg/dL Total Bilirubin 0.30 (0.2-1.3) mg/dL AST 23 (17-59) U/L ALT 18 (0-50) U/L Alkaline Phosphatase 80 (38-126) U/L Troponin I (0.000-0.034) ng/mL Serum Total Protein 7.7 (6.3-8.2) g/dL Albumin 4.6 (3.5-5.0) g/dL Amylase 57 (30-110) U/L Lipase 46 (23-300) U/L Urine Color (YELLOW) Urine Appearance (CLEAR) Urine pH (5-6) Ur Specific [place] (1.005-1.025) Urine Protein (Negative) Urine Ketones (NEGATIVE) Urine Blood (0-5) Dominick/ul Urine Nitrite (NEGATIVE) Urine Bilirubin (NEGATIVE) Urine Urobilinogen (0-1) mg/dL Ur Leukocyte Esterase (NEGATIVE) Urine WBC (Auto) (0-5) /HPF Urine RBC (Auto) (0-2) /HPF U Epithel Cells (Auto) (FEW) /HPF Urine Bacteria (Auto) (NEGATIVE) /HPF Urine Mucus (Auto) (NEGATIVE) /HPF Urine Culture Reflexed (NO) Urine Glucose (NEGATIVE) mg/dL - Progress Progress: improved Progress Note: 02/16/18 01:48 Given MSO4 4 mg, zofran 4 mg, and fluids IV; improved. 02/16/18 01:49 Abd/pelvis CTS is neg. Counseled pt/family regarding: lab results, diagnosis, rad results - Departure Time of Disposition: 01:51 Departure Disposition: Home (n) Clinical Impression: Abdominal pain Condition: Stable Critical Care Time: No Additional Instructions: You have abdominal pain of unknown origin. You were given morphine 4 mg, Zofran 4 mg, and fluids by IV in the ER. Take Tylenol and ibuprofen as needed. The CT scan of the abdomen and pelvis did not show any acute findings. Follow -up with your primary medical doctor as needed.
[2018-02-16 00:10] LABS: BASOPHIL % 0.4 % (0.0-0.4); Basophil (Absolute #) 0.03 (0-0.4); Eosinophil % 6.7 % (0.00-5.0); Eosinophil (Absolute #) 0.52 (0-0.5); Granulocytes % 50.4 % (36.0-66.0); Hematocrit 43.8 % (42-50); Hemoglobin 14.6 gm/dl (12.5-18.0); Lymphocyte (Absolute #) 2.58 (1.0-4.6); Lymphocytes % 33.4 % (24.0-44.0); Mean Cell Volume 88.5 fl (78-100); Mean Corpuscular Hemoglobin 29.5 pg (26-32); Mean Corpuscular Hgb Concent. 33.3 g/dl (32-36); Mean Platelet Volume 10.2 fl (6-9.5); Monocytes % 9.1 % (0.0-12.0); Platelet Count 240 K/mm3 (150-450); Red Blood Count 4.95 M/mm3 (4.1-5.6); Red Cell Distribution Width 14.6 % (11.5-14.0); White Blood Count 7.7 K/mm3 (4.0-10.5)
[2018-02-16] MEDS ORDERED: Zofran 4 MG/2 ML VIAL ONE (00:11)
[2018-02-16] MEDS ORDERED: Sodium Chloride 0.9% 1000 ML 1,000 ML ONE (00:11)
[2018-02-16] MEDS ORDERED: MORPHINE SULFATE 4 MG INJ ONE (00:11)
[2018-02-16 00:12] LABS: Appearance CLEAR (CLEAR); Bilirubin NEGATIVE (NEGATIVE); Blood NEGATIVE Ery/ul (0-5); Glucose NEGATIVE (NEGATIVE); Ketones NEGATIVE (NEGATIVE); Leukocyte Esterase NEGATIVE (NEGATIVE); Nitrite NEGATIVE (NEGATIVE); Protein,Urine Dip NEGATIVE (Negative); Urobilinogen NEGATIVE mg/dL (0-1)
[2018-02-16 00:48] LABS: ALBUMIN 4.6 g/dL (3.5-5.0); ALKALINE PHOSPHATASE 80 U/L (38-126); AMYLASE 57 U/L (30-110); ANION GAP 13.8 MEQ/L (5-15); BLOOD UREA NITROGEN 25 mg/dL (9-20); CHLORIDE 103 mmol/L (98-107); Calcium 9.7 mg/dL (8.4-10.2); Carbon Dioxide 27 mmol/L (22-30); Glucose 106 mg/dL (74-106); LIPASE 46 U/L (23-300); Potassium 4.3 mmol/L (3.5-5.1); SGOT/AST 23 U/L (17-59); SGPT/ALT 18 U/L (0-50); SODIUM 139 mmol/L (137-145); Total Protein 7.7 g/dL (6.3-8.2)
[2018-02-16 02:05] VITALS: BP 154/77; PULSE 51; O2SAT 97
--- NOTE | 2018-02-16 09:02 | XRAY ---
Indication: Left lower quadrant/flank pain. Multiple contiguous axial images obtained through the abdomen and pelvis without contrast as ordered. Comparison: None Lung bases demonstrates mild bibasilar fibrosis/scarring. Tiny sub-5 mm peripheral noncalcified nodule bilaterally probably granulomatous in this demographic. Heart is not enlarged demonstrating partially visualized valvular replacement surgery. Stomach is distended with food. Noncontrasted stomach and bowel loops appear nonobstructed. Normal appendix. Mild diffuse scattered colonic fecal debris throughout. No free fluid/air. Bilateral renal cysts, largest right mid kidney measuring 4.1 cm. Scattered calcified splenic granulomas. Remaining liver, pancreas, spleen, adrenal glands, kidneys, ureters, and bladder appear unremarkable for noncontrast exam. Moderate scattered aortoiliac calcifications without AAA. Osseous structures intact with previous L4-L5 posterior fusion surgery and intact spinal hardware. Old right L2 transverse process fracture. No ventral or inguinal hernias. Impression: 1. Bilateral renal cysts. 2. Fecal stasis without obstruction. 3. No acute intra-abdominal/pelvic abnormalities on this noncontrast exam. 4. Tiny bilateral lower lobe peripheral noncalcified pulmonary micronodules unchanged with respect to CT chest September 22, 2017. Comment: Preliminary interpretation was made by C. No discrepancy. CT DI 21.88
== END 2018-02-16 02:11 | disposition home or self-care (01) ==
LOC: ED 22:47
DX: R10.32 Left lower quadrant pain (principal); Z79.899 Other long term (current) drug therapy; E10.9 Type 1 diabetes mellitus without complications; Z79.4 Long term (current) use of insulin
CPT/HCPCS: 36000; 36415; 74176; 80053; 81001; 82150; 83605; 83690; 84484; 85025; 96360; 96374; 96375; 99284; J2270; J2405

== ENCOUNTER 2019-06-26 20:44 | Inpatient (IN) | payer MEDICARE, BC ==
--- NOTE | 2019-06-26 20:57 | ERPHSYRPT ---
- History of Present Illness Time Seen by Provider: 06/26/19 21:15 Source: patient Exam Limitations: no limitations Physician History: Patient is a 68-year-old male presents to our ED for evaluation of shortness of breath. Patient arrived via EMS. Patient reports that he has been weak for the past 7 days. Patient has fallen several times. Family observed patient appeared short of breath today. 911 was called. Patient denies any respiratory symptomology. Patient febrile in our ED. reports that patient was assessed within the past several days for influenza which was negative. Patient symptoms are progressive. Patient denies chest pain. No nausea or vomiting. No diarrhea. Symptoms are moderate in intensity. No significant worsening improving factors. Patient voices no other complaints at this time. Timing/Duration: today Fever Severity: mild Associated Symptoms: cough, shortness of breath, No abdominal pain, No chest pain, No diaphoresis, No headache, No muscle aches, No nausea/vomiting, No rash International travel in last 2 weeks: No Allergies/Adverse Reactions: No Known Drug Allergies Allergy (Verified 06/26/19 21:54) Home Medications: Aspirin [Baby Aspirin] 81 mg PO DAILY 06/30/12 [History] Simvastatin 40 mg [Zocor 40 mg] 40 mg PO DAILY 06/05/13 [History] Isosorbide Mononitrate 30 mg [Imdur 30 MG] 30 mg PO DAILY 09/22/17 [History ] Losartan/Hydrochlorothiazide [Losartan-Hctz 100-25 mg Tab] 0.5 tablet PO DAILY 09/22/17 [History] Metformin HCl [Metformin ER Osmotic] 500 mg PO BID 09/22/17 [History] Metoprolol Tartrate 25 mg [Lopressor 25MG Tab] 25 mg PO BID 09/22/17 [ History] Pioglitazone HCl 15 mg PO DAILY 09/22/17 [History] Hx Tetanus, Diphtheria Vaccination/Date Given: Yes Hx Influenza Vaccination/Date Given: Yes Hx Pneumococcal Vaccination/Date Given: Yes Travel Risk - International Travel Have you traveled outside of the country in past 3 weeks: No Have you or anyone close to you been diagnosed with or: No Do your reside in a community with a known COVID-19 case?: No - Coronavirus Screening Has patient experienced Coronavirus symptoms: Yes Symptoms experienced: fever(equal or > 100.4 F) (yes), weakness Date of fever onset:: 06/26/19 Date of respiratory symptoms onset:: 06/26/19 - Review of Systems Constitutional: Fever, Weakness, No Chills Eyes: No Symptoms Ears, Nose, & Throat: No Symptoms Respiratory: Cough, Dyspnea on Exertion (BRUNSON), No Dyspnea Cardiac: No Symptoms, No Chest Pain, No Edema, No Syncope Abdominal/Gastrointestinal: No Abdominal Pain, No Nausea, No Vomiting, No Diarrhea Genitourinary Symptoms: No Dysuria Musculoskeletal: No Back Pain, No Neck Pain Skin: No Symptoms, No Rash Neurological: No Symptoms, No Dizziness, No Focal Weakness, No Sensory Changes Psychological: No Symptoms Endocrine: No Symptoms Hematologic/Lymphatic: No Symptoms All Other Systems: Reviewed and Negative - Past Medical History Pertinent Past Medical History: Yes Neurological History: No Pertinent History ENT History: No Pertinent History Cardiac History: High Cholesterol, Hypertension Respiratory History: No Pertinent History Endocrine Medical History: Diabetes Type I Musculoskeletal History: No Pertinent History GI Medical History: No Pertinent History History: No Pertinent History Psycho-Social History: No Pertinent History Male Reproductive Disorders: No Pertinent History - Past Surgical History Past Surgical History: Yes Neuro Surgical History: No Pertinent History Cardiac: Valve Replacement Gastrointestinal: No Pertinent History, Hernia Repair Genitourinary: No Pertinent History Musculoskeletal: Orthopedic Surgery Male Surgical History: No Pertinent History Other Surgical History: 2009 back,disc with annel and screws placed - Social History Smoking Status: Never smoker Exposure to second hand smoke: No Alcohol Use: None Drug Use: none Patient Lives Alone: No Significant Family History: no pertinent family hx - Nursing Vital Signs Nursing Vital Signs: Initial Vital Signs O2 Sat by Pulse Oximetry 96 06/26/19 21:00 Pain Scale Pain Intensity 5 - Physical Exam General Appearance: no apparent distress, alert Eye Exam: PERRL/EOMI ENT Exam: normal ENT inspection, No pharyngeal erythema, No tonsillar exudate Neck Exam: normal inspection (Old resolving ecchymosis of abdominal wall. Abdominal exam is within normal limits. No rebound. No tenderness. Patient has no abdominal pain.), supple, full range of motion, No meningismus Respiratory Exam: normal breath sounds, lungs clear, no respiratory distress Cardiovascular/Chest Exam: normal heart sounds, regular rate/rhythm, No murmur, No edema Gastrointestinal/Abdominal Exam: soft, non tender, no distention, No no ecchymosis (Resolving bruising to right upper quadrant. Abdominal exam is benign. No abdominal pain or tenderness. Bruising from previous fall.) Extremity Exam: non-tender, normal range of motion, normal inspection, normal capillary refill, No no calf tenderness (Resolving ecchymosis of second and third digit of right lower extremity. Patient has no foot ankle or leg pain. 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 Sternotomy wires observed. Prior CABG and aortic valve repair.) Ordered Tests: Active Orders 24 hr Category Date Time Status EKG-ER Only STAT Care 06/26/19 20:51 Active IV Insertion STAT Care 06/26/19 20:51 Active Isolation, Initiate & Maintain Q12H Care 06/26/19 21:46 Active Pulse Oximetry (ED) STAT Care 06/26/19 20:51 Active CHEST 1 VIEW (PORTABLE) Stat Exams 06/26/19 20:52 Taken BLOOD CULTURE Stat Lab 06/26/19 21:20 Received CBC W DIFF Stat Lab 06/26/19 21:21 Completed CMP Stat Lab 06/26/19 21:20 Completed Lactic Acid Stat Lab 06/26/19 21:16 Completed MAGNESIUM Stat Lab 06/26/19 23:39 Ordered TROPONIN Q3H Lab 06/26/19 22:15 Completed TROPONIN Q3H Lab 06/27/19 02:00 Ordered TROPONIN Q3H Lab 06/27/19 05:00 Ordered TROPONIN Q3H Lab 06/27/19 08:00 Ordered TROPONIN Q3H Lab 06/27/19 11:00 Ordered UA W/RFX UR CULTURE Stat Lab 06/26/19 21:20 Completed Transfer Order Routine Transfer 06/26/19 Ordered Medication Summary Generic Name Dose Route Start Last Admin Trade Name Freq PRN Reason Stop Dose Admin Sodium Chloride 1,000 mls @ 100 mls/hr 06/26/19 21:00 06/26/19 21:03 Sodium Chloride 0.9% 1000 Ml IV 07/26/19 20:59 100 mls/hr .Q10H ROSENDA Administration Discontinued Medications Generic Name Dose Route Start Last Admin Trade Name Oswaldo PRN Reason Stop Dose Admin Potassium Chloride 40 meq 06/26/19 22:59 06/26/19 23:08 Klor Con 10 Meq PO 06/26/19 23:00 40 meq STAT ONE Administration Potassium Chloride Confirm 06/26/19 23:08 Klor Con 10 Meq Administered 06/26/19 23:09 Dose 40 meq PO .[employer]-[facility] ONE Lab/Rad Data: Laboratory Result Diagrams 06/26/19 21:21 06/26/19 21:20 Laboratory Results 06/26/19 06/26/19 06/26/19 Range/Units 22:15 21:21 21:20 WBC 6.8 (4.0-10.5) K/mm3 RBC 4.48 (4.1-5.6) M/mm3 Hgb 13.4 (12.5-18.0) gm/dl Hct 39.2 L (42-50) % MCV 87.5 (78-100) fl MCH 29.9 (26-32) pg MCHC 34.2 (32-36) g/dl RDW 14.6 H (11.5-14.0) % Plt Count 183 (150-450) K/mm3 MPV 10.8 (7.5-11.0) fl Gran % 77.7 H (36.0-66.0) % Eos # (Auto) 0 (0-0.5) Absolute Lymphs (auto) 0.91 L (1.0-4.6) Absolute Monos (auto) 0.61 (0.0-1.3) Lymphocytes % 13.3 L (24.0-44.0) % Monocytes % 8.9 (0.0-12.0) % Eosinophils % 0.0 (0.00-5.0) % Basophils % 0.1 (0.0-0.4) % Absolute Granulocytes 5.31 (1.4-6.9) Basophils # 0.01 (0-0.4) Sodium (137-145) mmol/L Potassium (3.5-5.1) mmol/L Chloride (98-107) mmol/L Carbon Dioxide (22-30) mmol/L Anion Gap (5-15) MEQ/L BUN (9-20) mg/dL Creatinine (0.66-1.25) mg/dL Estimated GFR ML/MIN Glucose (74-106) mg/dL Lactic Acid (0.4-2.0) Calcium (8.4-10.2) mg/dL Total Bilirubin (0.2-1.3) mg/dL AST (17-59) U/L ALT (0-50) U/L Alkaline Phosphatase (38-126) U/L Troponin I < 0.012 (0.000-0.034) ng/mL Serum Total Protein (6.3-8.2) g/dL Albumin (3.5-5.0) g/dL Urine Color YELLOW (YELLOW) Urine Appearance CLEAR (CLEAR) Urine pH 5.0 (5-6) Ur Specific [place] 1.012 (1.005-1.025) Urine Protein NEGATIVE (Negative) Urine Ketones TRACE (NEGATIVE) Urine Blood SMALL (0-5) Dominick/ul Urine Nitrite NEGATIVE (NEGATIVE) Urine Bilirubin NEGATIVE (NEGATIVE) Urine Urobilinogen NEGATIVE (0-1) mg/dL Ur Leukocyte Esterase NEGATIVE (NEGATIVE) Urine WBC (Auto) 3-5 (0-5) /HPF Urine RBC (Auto) NONE (0-2) /HPF U Epithel Cells (Auto) NONE (FEW) /HPF Urine Bacteria (Auto) NONE (NEGATIVE) /HPF Urine Mucus (Auto) SLIGHT (NEGATIVE) /HPF Urine Culture Reflexed NO (NO) Urine Glucose NEGATIVE (NEGATIVE) mg/dL Influenza Type A Ag (NEGATIVE) Influenza Type B Ag (NEGATIVE) RSV (PCR) (Negative) 06/26/19 06/26/19 06/26/19 Range/Units 21:20 21:20 21:16 WBC (4.0-10.5) K/mm3 RBC (4.1-5.6) M/mm3 Hgb (12.5-18.0) gm/dl Hct (42-50) % MCV (78-100) fl MCH (26-32) pg MCHC (32-36) g/dl RDW (11.5-14.0) % Plt Count (150-450) K/mm3 MPV (7.5-11.0) fl Gran % (36.0-66.0) % Eos # (Auto) (0-0.5) Absolute Lymphs (auto) (1.0-4.6) Absolute Monos (auto) (0.0-1.3) Lymphocytes % (24.0-44.0) % Monocytes % (0.0-12.0) % Eosinophils % (0.00-5.0) % Basophils % (0.0-0.4) % Absolute Granulocytes (1.4-6.9) Basophils # (0-0.4) Sodium 139 (137-145) mmol/L Potassium 3.2 L (3.5-5.1) mmol/L Chloride 103 (98-107) mmol/L Carbon Dioxide 24 (22-30) mmol/L Anion Gap 14.5 (5-15) MEQ/L BUN 32 H (9-20) mg/dL Creatinine 1.25 (0.66-1.25) mg/dL Estimated GFR > 60.0 ML/MIN Glucose 121 H (74-106) mg/dL Lactic Acid 1.0 (0.4-2.0) Calcium 8.5 (8.4-10.2) mg/dL Total Bilirubin 0.60 (0.2-1.3) mg/dL AST 45 (17-59) U/L ALT 54 H (0-50) U/L Alkaline Phosphatase 68 (38-126) U/L Troponin I (0.000-0.034) ng/mL Serum Total Protein 7.7 (6.3-8.2) g/dL Albumin 4.1 (3.5-5.0) g/dL Urine Color (YELLOW) Urine Appearance (CLEAR) Urine pH (5-6) Ur Specific [place] (1.005-1.025) Urine Protein (Negative) Urine Ketones (NEGATIVE) Urine Blood (0-5) Dominick/ul Urine Nitrite (NEGATIVE) Urine Bilirubin (NEGATIVE) Urine Urobilinogen (0-1) mg/dL Ur Leukocyte Esterase (NEGATIVE) Urine WBC (Auto) (0-5) /HPF Urine RBC (Auto) (0-2) /HPF U Epithel Cells (Auto) (FEW) /HPF Urine Bacteria (Auto) (NEGATIVE) /HPF Urine Mucus (Auto) (NEGATIVE) /HPF Urine Culture Reflexed (NO) Urine Glucose (NEGATIVE) mg/dL Influenza Type A Ag NEGATIVE (NEGATIVE) Influenza Type B Ag NEGATIVE (NEGATIVE) RSV (PCR) NEGATIVE (Negative) - Progress Progress: improved Progress Note: 06/26/19 23:45 Patient reassessed. He states he feels well. We ambulated patient throughout our ED. Sats remained within normal limits. However patient felt very weak. In light of patient's symptoms hypokalemia and recurrent falls we will admit patient for further work-up. Due to fever, cough and shortness of breath we will admit patient for covered rule out. Patient will be placed in airborne isolation. Case discussed with Dr. Purdy who accepts admission to observation. Plan of care discussed with patient. He agrees to admission to [facility] for further evaluation and treatment. Discussed with .: Daniel Will see patient in: hospital (observation) Counseled pt/family regarding: lab results, diagnosis, rad results - Departure Departure Disposition: In-patient Admission Clinical Impression: Generalized weakness, SOB (shortness of breath), Fever, Fall, Hypokalemia Condition: Stable Critical Care Time: No Referrals: DOCTOR,NO FAMILY [Primary Care Provider] -
[2019-06-26] MEDS ORDERED: Sodium Chloride 0.9% 1000 ML 1,000 ML ONE (20:59)
[2019-06-26] MEDS ORDERED: Sodium Chloride 0.9% 1000 ML 1,000 ML IV SCH (21:00)
[2019-06-26 21:26] LABS: Appearance CLEAR (CLEAR); Bilirubin NEGATIVE (NEGATIVE); Blood SMALL Ery/ul (0-5); Glucose NEGATIVE (NEGATIVE); Ketones TRACE (NEGATIVE); Leukocyte Esterase NEGATIVE (NEGATIVE); Mucus SLIGHT /HPF (NEGATIVE); Nitrite NEGATIVE (NEGATIVE); Protein,Urine Dip NEGATIVE (Negative); Specific Gravity 1.012 (1.005-1.025); Urobilinogen NEGATIVE mg/dL (0-1)
[2019-06-26 21:35] LABS: ALBUMIN 4.1 g/dL (3.5-5.0); ALKALINE PHOSPHATASE 68 U/L (38-126); ANION GAP 14.5 MEQ/L (5-15); BLOOD UREA NITROGEN 32 mg/dL (9-20); CHLORIDE 103 mmol/L (98-107); Calcium 8.5 mg/dL (8.4-10.2); Carbon Dioxide 24 mmol/L (22-30); Creatinine 1 1.25 mg/dL (0.66-1.25); Glucose 121 mg/dL (74-106); Potassium 3.2 mmol/L (3.5-5.1); SGOT/AST 45 U/L (17-59); SGPT/ALT 54 U/L (0-50); SODIUM 139 mmol/L (137-145); Total Protein 7.7 g/dL (6.3-8.2)
[2019-06-26 22:01] LABS: INFLUENZA A NEGATIVE (NEGATIVE); INFLUENZA B NEGATIVE (NEGATIVE); RESPIRATORY SYNCTIAL VIRUS NEGATIVE (Negative)
[2019-06-26 22:05] LABS: Absolute Neutrophil Ct (ANC) 5.31 (1.4-6.9); BASOPHIL % 0.1 % (0.0-0.4); Basophil (Absolute #) 0.01 (0-0.4); Eosinophil (Absolute #) 0 (0-0.5); Hematocrit 39.2 % (42-50); Hemoglobin 13.4 gm/dl (12.5-18.0); Lymphocyte (Absolute #) 0.91 (1.0-4.6); Lymphocytes % 13.3 % (24.0-44.0); Mean Cell Volume 87.5 fl (78-100); Mean Corpuscular Hemoglobin 29.9 pg (26-32); Mean Corpuscular Hgb Concent. 34.2 g/dl (32-36); Mean Platelet Volume 10.8 fl (7.5-11.0); Monocyte (Absolute #) 0.61 (0.0-1.3); Monocytes % 8.9 % (0.0-12.0); Neutrophil % 77.7 % (36.0-66.0); Platelet Count 183 K/mm3 (150-450); Red Blood Count 4.48 M/mm3 (4.1-5.6); Red Cell Distribution Width 14.6 % (11.5-14.0); White Blood Count 6.8 K/mm3 (4.0-10.5)
[2019-06-26] MEDS ORDERED: Klor Con 10 MEQ PO ONE ×2 (22:59→23:08)
[2019-06-27] MEDS ORDERED: MORPHINE SULFATE 2 MG INJ IV PRN (00:43)
[2019-06-27] MEDS ORDERED: Zofran 4 MG/2 ML VIAL IV PRN (00:43)
[2019-06-27 05:30] LABS: Basophil (Absolute #) 0 (0-0.4); Eosinophil (Absolute #) 0 (0-0.5); Hematocrit 37.7 % (42-50); Hemoglobin 12.8 gm/dl (12.5-18.0); Lymphocyte (Absolute #) 1.82 (1.0-4.6); Lymphocytes % 24.2 % (24.0-44.0); Mean Cell Volume 87.1 fl (78-100); Mean Corpuscular Hemoglobin 29.6 pg (26-32); Mean Platelet Volume 9.8 fl (7.5-11.0); Monocyte (Absolute #) 0.79 (0.0-1.3); Monocytes % 10.5 % (0.0-12.0); Neutrophil % 65.3 % (36.0-66.0); Platelet Count 171 K/mm3 (150-450); Red Blood Count 4.33 M/mm3 (4.1-5.6); Red Cell Distribution Width 14.9 % (11.5-14.0); White Blood Count 7.5 K/mm3 (4.0-10.5)
[2019-06-27 06:02] LABS: ALBUMIN 3.7 g/dL (3.5-5.0); ALKALINE PHOSPHATASE 57 U/L (38-126); ANION GAP 14.3 MEQ/L (5-15); BLOOD UREA NITROGEN 25 mg/dL (9-20); CHLORIDE 105 mmol/L (98-107); Calcium 8.3 mg/dL (8.4-10.2); Carbon Dioxide 25 mmol/L (22-30); Glucose 104 mg/dL (74-106); Potassium 3.9 mmol/L (3.5-5.1); SGOT/AST 42 U/L (17-59); SGPT/ALT 51 U/L (0-50); SODIUM 140 mmol/L (137-145); Total Protein 6.8 g/dL (6.3-8.2)
--- NOTE | 2019-06-27 08:31 | XRAY ---
Indication: Pneumonia. Comparison: September 22, 2017. Portable chest remain slightly under inflated and clear. Heart is not enlarged again demonstrating cardiac valve replacement surgery. Bony thorax intact. Stable punctate foreign body overlies the left chest. Impression: Continued nonacute chest with chronic features. Comment: Preliminary interpretation was made by [facility]. No critical discrepancy.
[2019-06-27] MEDS ORDERED: HUMALOG SQ PRN (09:54)
--- NOTE | 2019-06-27 09:55 | PCM.HP ---
History of Present Illness - Chief Complaint Chief Complaint: Rule out COVID, generalized weakness, hypokalemia, SOB, falls History of Present Illness: is a 68 year old male who has a 1 week history of weakness and feeling poorly, he describes vague symptoms with some cough but denies any shortness of breath. Apparently he was more weak yesterday and his noticed that he appeared to be breathing faster and harder so called EMS, he was febrile on arrival. He is uncertain of any fever present at home prior to arrival. He has a history of CAD with CABG and aortic valve replacement 5 years ago and type 2 diabetes. - Review of Systems Constitutional: Fever, Chills, Weakness Respiratory: Cough, No Short Of Breath Cardiac: No Chest Pain, No Edema, No Syncope Abdominal/Gastrointestinal: No Abdominal Pain, No Nausea, No Vomiting, No Diarrhea Genitourinary Symptoms: No Dysuria Skin: No Rash Neurological: No Symptoms All Other Systems: Reviewed and Negative Medications & Allergies Home Medications: Home Medication List Aspirin [Baby Aspirin] 81 mg PO DAILY 06/30/12 [History Confirmed 06/27/19] Simvastatin 40 mg [Zocor 40 mg] 40 mg PO DAILY 06/05/13 [History Confirmed 06/26] Isosorbide Mononitrate 30 mg [Imdur 30 MG] 30 mg PO DAILY 09/22/17 [ History Confirmed 06/27/19] Losartan/Hydrochlorothiazide [Losartan-Hctz 100-25 mg Tab] 1 tablet PO DAILY 09/04 [History Confirmed 06/27/19] Metformin HCl [Metformin ER Osmotic] 500 mg PO BID 09/22/17 [History Confirmed 06/27/19] Pioglitazone HCl 15 mg PO DAILY 09/22/17 [History Confirmed 06/27/19] Amlodipine Besylate 5 mg PO DAILY 06/27/19 [History Confirmed 06/27/19] carvediloL [Carvedilol] 6.25 mg PO BID 06/27/19 [History Confirmed 06/27/19] Allergies/Adverse Reactions: Allergies Allergy/AdvReac Type Severity Reaction Status Date / Time No Known Drug Allergies Allergy Verified 06/26/19 21:54 - Past Medical History Past Medical History: Yes Neurological History: No Pertinent History ENT History: No Pertinent History Cardiac History: High Cholesterol, Hypertension Respiratory History: No Pertinent History Endocrine Medical History: Diabetes Type I Musculoskelatal History: No Pertinent History GI Medical History: No Pertinent History History: No Pertinent History Pyscho-Social History: No Pertinent History Male Reproductive Disorders: No Pertinent History - Past Surgical History Past Surgical History: Yes Neuro Surgical History: No Pertinent History Cardiac History: Valve Replacement GI Surgical History: No Pertinent History, Hernia Repair Genitourinary Surgical Hx: No Pertinent History Musculskeletal Surgical Hx: Orthopedic Surgery Male Surgical History: No Pertinent History Other Surgical History: 2009 back,disc with annel and screws placed - Social History Smoking Status: Never smoker Exposure to second hand smoke: No Alcohol: None Drug Use: none Significant Family History: no pertinent family hx - Physical Exam Vital Signs: Vital Signs - 24 hr Temp Pulse Resp BP Pulse Ox 06/27/19 08:00 98.9 F 64 18 134/71 97 06/27/19 07:40 96 06/27/19 04:00 99.1 F 64 20 133/72 95 06/27/19 01:13 100.1 F 85 24 149/79 95 06/27/19 00:07 83 24 152/76 95 06/26/19 23:50 96 06/26/19 23:12 95 H 25 H 141/75 94 L 06/26/19 21:57 90 25 H 120/62 93 L 06/26/19 21:21 100.5 F 91 H 26 H 162/75 96 06/26/19 21:00 96 General Appearance: no apparent distress, alert Neurologic Exam: alert, oriented x 3, cooperative Respiratory Exam: rhonchi Cardiovascular Exam: regular rate/rhythm, normal heart sounds, normal peripheral pulses Gastrointestinal/Abdomen Exam: soft, normal bowel sounds, No tenderness, No mass Extremity Exam: normal inspection, normal range of motion, pelvis stable Skin Exam: normal color, warm, dry, No rash Results - Labs Lab/Micro Results: Lab Results-Last 24 Hours 06/26/19 06/26/19 06/26/19 Range/Units 00:17 21:16 21:20 WBC (4.0-10.5) K/mm3 RBC (4.1-5.6) M/mm3 Hgb (12.5-18.0) gm/dl Hct (42-50) % MCV (78-100) fl MCH (26-32) pg MCHC (32-36) g/dl RDW (11.5-14.0) % Plt Count (150-450) K/mm3 MPV (7.5-11.0) fl Gran % (36.0-66.0) % Eos # (Auto) (0-0.5) Absolute Lymphs (auto) (1.0-4.6) Absolute Monos (auto) (0.0-1.3) Lymphocytes % (24.0-44.0) % Monocytes % (0.0-12.0) % Eosinophils % (0.00-5.0) % Basophils % (0.0-0.4) % Absolute Granulocytes (1.4-6.9) Basophils # (0-0.4) Sodium 139 (137-145) mmol/L Potassium 3.2 L (3.5-5.1) mmol/L Chloride 103 (98-107) mmol/L Carbon Dioxide 24 (22-30) mmol/L Anion Gap 14.5 (5-15) MEQ/L BUN 32 H (9-20) mg/dL Creatinine 1.25 (0.66-1.25) mg/dL Estimated GFR > 60.0 ML/MIN Glucose 121 H (74-106) mg/dL Lactic Acid 1.0 (0.4-2.0) Calcium 8.5 (8.4-10.2) mg/dL Magnesium 1.8 (1.6-2.3) mg/dL Total Bilirubin 0.60 (0.2-1.3) mg/dL AST 45 (17-59) U/L ALT 54 H (0-50) U/L Alkaline Phosphatase 68 (38-126) U/L Troponin I (0.000-0.034) ng/mL Serum Total Protein 7.7 (6.3-8.2) g/dL Albumin 4.1 (3.5-5.0) g/dL Urine Color (YELLOW) Urine Appearance (CLEAR) Urine pH (5-6) Ur Specific [place] (1.005-1.025) Urine Protein (Negative) Urine Ketones (NEGATIVE) Urine Blood (0-5) Dominick/ul Urine Nitrite (NEGATIVE) Urine Bilirubin (NEGATIVE) Urine Urobilinogen (0-1) mg/dL Ur Leukocyte Esterase (NEGATIVE) Urine WBC (Auto) (0-5) /HPF Urine RBC (Auto) (0-2) /HPF U Epithel Cells (Auto) (FEW) /HPF Urine Bacteria (Auto) (NEGATIVE) /HPF Urine Mucus (Auto) (NEGATIVE) /HPF Urine Culture Reflexed (NO) Urine Glucose (NEGATIVE) mg/dL Influenza Type A Ag (NEGATIVE) Influenza Type B Ag (NEGATIVE) RSV (PCR) (Negative) 06/26/19 06/26/19 06/26/19 Range/Units 21:20 21:20 21:21 WBC 6.8 (4.0-10.5) K/mm3 RBC 4.48 (4.1-5.6) M/mm3 Hgb 13.4 (12.5-18.0) gm/dl Hct 39.2 L (42-50) % MCV 87.5 (78-100) fl MCH 29.9 (26-32) pg MCHC 34.2 (32-36) g/dl RDW 14.6 H (11.5-14.0) % Plt Count 183 (150-450) K/mm3 MPV 10.8 (7.5-11.0) fl Gran % 77.7 H (36.0-66.0) % Eos # (Auto) 0 (0-0.5) Absolute Lymphs (auto) 0.91 L (1.0-4.6) Absolute Monos (auto) 0.61 (0.0-1.3) Lymphocytes % 13.3 L (24.0-44.0) % Monocytes % 8.9 (0.0-12.0) % Eosinophils % 0.0 (0.00-5.0) % Basophils % 0.1 (0.0-0.4) % Absolute Granulocytes 5.31 (1.4-6.9) Basophils # 0.01 (0-0.4) Sodium (137-145) mmol/L Potassium (3.5-5.1) mmol/L Chloride (98-107) mmol/L Carbon Dioxide (22-30) mmol/L Anion Gap (5-15) MEQ/L BUN (9-20) mg/dL Creatinine (0.66-1.25) mg/dL Estimated GFR ML/MIN Glucose (74-106) mg/dL Lactic Acid (0.4-2.0) Calcium (8.4-10.2) mg/dL Magnesium (1.6-2.3) mg/dL Total Bilirubin (0.2-1.3) mg/dL AST (17-59) U/L ALT (0-50) U/L Alkaline Phosphatase (38-126) U/L Troponin I (0.000-0.034) ng/mL Serum Total Protein (6.3-8.2) g/dL Albumin (3.5-5.0) g/dL Urine Color YELLOW (YELLOW) Urine Appearance CLEAR (CLEAR) Urine pH 5.0 (5-6) Ur Specific [place] 1.012 (1.005-1.025) Urine Protein NEGATIVE (Negative) Urine Ketones TRACE (NEGATIVE) Urine Blood SMALL (0-5) Dominick/ul Urine Nitrite NEGATIVE (NEGATIVE) Urine Bilirubin NEGATIVE (NEGATIVE) Urine Urobilinogen NEGATIVE (0-1) mg/dL Ur Leukocyte Esterase NEGATIVE (NEGATIVE) Urine WBC (Auto) 3-5 (0-5) /HPF Urine RBC (Auto) NONE (0-2) /HPF U Epithel Cells (Auto) NONE (FEW) /HPF Urine Bacteria (Auto) NONE (NEGATIVE) /HPF Urine Mucus (Auto) SLIGHT (NEGATIVE) /HPF Urine Culture Reflexed NO (NO) Urine Glucose NEGATIVE (NEGATIVE) mg/dL Influenza Type A Ag NEGATIVE (NEGATIVE) Influenza Type B Ag NEGATIVE (NEGATIVE) RSV (PCR) NEGATIVE (Negative) 06/26/19 06/27/19 06/27/19 Range/Units 22:15 02:12 05:00 WBC (4.0-10.5) K/mm3 RBC (4.1-5.6) M/mm3 Hgb (12.5-18.0) gm/dl Hct (42-50) % MCV (78-100) fl MCH (26-32) pg MCHC (32-36) g/dl RDW (11.5-14.0) % Plt Count (150-450) K/mm3 MPV (7.5-11.0) fl Gran % (36.0-66.0) % Eos # (Auto) (0-0.5) Absolute Lymphs (auto) (1.0-4.6) Absolute Monos (auto) (0.0-1.3) Lymphocytes % (24.0-44.0) % Monocytes % (0.0-12.0) % Eosinophils % (0.00-5.0) % Basophils % (0.0-0.4) % Absolute Granulocytes (1.4-6.9) Basophils # (0-0.4) Sodium (137-145) mmol/L Potassium (3.5-5.1) mmol/L Chloride (98-107) mmol/L Carbon Dioxide (22-30) mmol/L Anion Gap (5-15) MEQ/L BUN (9-20) mg/dL Creatinine (0.66-1.25) mg/dL Estimated GFR ML/MIN Glucose (74-106) mg/dL Lactic Acid (0.4-2.0) Calcium (8.4-10.2) mg/dL Magnesium (1.6-2.3) mg/dL Total Bilirubin (0.2-1.3) mg/dL AST (17-59) U/L ALT (0-50) U/L Alkaline Phosphatase (38-126) U/L Troponin I < 0.012 0.018 0.018 (0.000-0.034) ng/mL Serum Total Protein (6.3-8.2) g/dL Albumin (3.5-5.0) g/dL Urine Color (YELLOW) Urine Appearance (CLEAR) Urine pH (5-6) Ur Specific [place] (1.005-1.025) Urine Protein (Negative) Urine Ketones (NEGATIVE) Urine Blood (0-5) Dominick/ul Urine Nitrite (NEGATIVE) Urine Bilirubin (NEGATIVE) Urine Urobilinogen (0-1) mg/dL Ur Leukocyte Esterase (NEGATIVE) Urine WBC (Auto) (0-5) /HPF Urine RBC (Auto) (0-2) /HPF U Epithel Cells (Auto) (FEW) /HPF Urine Bacteria (Auto) (NEGATIVE) /HPF Urine Mucus (Auto) (NEGATIVE) /HPF Urine Culture Reflexed (NO) Urine Glucose (NEGATIVE) mg/dL Influenza Type A Ag (NEGATIVE) Influenza Type B Ag (NEGATIVE) RSV (PCR) (Negative) 06/27/19 06/27/19 06/27/19 Range/Units 05:00 05:00 08:10 WBC 7.5 (4.0-10.5) K/mm3 RBC 4.33 (4.1-5.6) M/mm3 Hgb 12.8 (12.5-18.0) gm/dl Hct 37.7 L (42-50) % MCV 87.1 (78-100) fl MCH 29.6 (26-32) pg MCHC 34.0 (32-36) g/dl RDW 14.9 H (11.5-14.0) % Plt Count 171 (150-450) K/mm3 MPV 9.8 (7.5-11.0) fl Gran % 65.3 (36.0-66.0) % Eos # (Auto) 0 (0-0.5) Absolute Lymphs (auto) 1.82 (1.0-4.6) Absolute Monos (auto) 0.79 (0.0-1.3) Lymphocytes % 24.2 (24.0-44.0) % Monocytes % 10.5 (0.0-12.0) % Eosinophils % 0.0 (0.00-5.0) % Basophils % 0.0 (0.0-0.4) % Absolute Granulocytes 4.90 (1.4-6.9) Basophils # 0 (0-0.4) Sodium 140 (137-145) mmol/L Potassium 3.9 D (3.5-5.1) mmol/L Chloride 105 (98-107) mmol/L Carbon Dioxide 25 (22-30) mmol/L Anion Gap 14.3 (5-15) MEQ/L BUN 25 H (9-20) mg/dL Creatinine 1.00 (0.66-1.25) mg/dL Estimated GFR > 60.0 ML/MIN Glucose 104 (74-106) mg/dL Lactic Acid (0.4-2.0) Calcium 8.3 L (8.4-10.2) mg/dL Magnesium (1.6-2.3) mg/dL Total Bilirubin 0.60 (0.2-1.3) mg/dL AST 42 (17-59) U/L ALT 51 H (0-50) U/L Alkaline Phosphatase 57 (38-126) U/L Troponin I 0.014 (0.000-0.034) ng/mL Serum Total Protein 6.8 (6.3-8.2) g/dL Albumin 3.7 (3.5-5.0) g/dL Urine Color (YELLOW) Urine Appearance (CLEAR) Urine pH (5-6) Ur Specific [place] (1.005-1.025) Urine Protein (Negative) Urine Ketones (NEGATIVE) Urine Blood (0-5) Dominick/ul Urine Nitrite (NEGATIVE) Urine Bilirubin (NEGATIVE) Urine Urobilinogen (0-1) mg/dL Ur Leukocyte Esterase (NEGATIVE) Urine WBC (Auto) (0-5) /HPF Urine RBC (Auto) (0-2) /HPF U Epithel Cells (Auto) (FEW) /HPF Urine Bacteria (Auto) (NEGATIVE) /HPF Urine Mucus (Auto) (NEGATIVE) /HPF Urine Culture Reflexed (NO) Urine Glucose (NEGATIVE) mg/dL Influenza Type A Ag (NEGATIVE) Influenza Type B Ag (NEGATIVE) RSV (PCR) (Negative) - Radiology Impressions Radiology Exams & Impressions: Radiology Procedures Category Date Time Status CHEST 1 VIEW (PORTABLE) Stat Exams 06/26/19 20:52 Completed - Other Procedures and Tests Respiratory Therapy 06/27/19 08:41 Oxygen NASAL CANNULA 2 lpm Assessment/Plan (1) Suspected COVID-19 virus infection Current Visit: Yes Status: Acute Assessment & Plan: supportive measures at this time, stable on 2L oxygen, he has no history of respiratory problems nor tobacco use. swab is pending, avoid IV fludis and monitor closely. discussed code status and patient wishes to be a full code. Code(s): R68.89 - OTHER GENERAL SYMPTOMS AND SIGNS (2) Fever Current Visit: Yes Status: Acute Assessment & Plan: acetaminophen PRN Code(s): R50.9 - FEVER, UNSPECIFIED (3) Generalized weakness Current Visit: Yes Status: Acute Code(s): R53.1 - WEAKNESS (4) Type 2 diabetes mellitus Current Visit: Yes Status: Acute (5) Coronary artery disease Current Visit: Yes Status: Acute Code(s): I25.10 - ATHSCL HEART DISEASE OF [place] CORONARY ARTERY W/O ANG PCTRS
[2019-06-27] MEDS: Cozaar 50 MG PO SCH (11:38)
[2019-06-27] MEDS: ECOTRIN 81 MG PO SCH (11:39)
[2019-06-27] MEDS: Coreg 6.25 MG PO SCH ×2 (11:42→22:02)
[2019-06-27] MEDS: hydroDIURIL 25 MG PO SCH (11:43)
[2019-06-27] MEDS: NORVASC 5 MG PO SCH (11:43)
[2019-06-27] MEDS: Imdur 30 MG PO SCH (11:43)
[2019-06-27] MEDS: ZOCOR 20MG PO SCH (11:44)
[2019-06-27] MEDS: TYLENOL 325 MG PO PRN (12:12)
[2019-06-28] MEDS: TYLENOL 325 MG PO PRN ×3 (00:45→22:17)
[2019-06-28 05:06] LABS: Absolute Neutrophil Ct (ANC) 3.66 (1.4-6.9); Basophil (Absolute #) 0 (0-0.4); Eosinophil % 0.4 % (0.00-5.0); Eosinophil (Absolute #) 0.02 (0-0.5); Hematocrit 37.9 % (42-50); Hemoglobin 12.7 gm/dl (12.5-18.0); Lymphocyte (Absolute #) 0.71 (1.0-4.6); Lymphocytes % 14.7 % (24.0-44.0); Mean Cell Volume 88.6 fl (78-100); Mean Corpuscular Hemoglobin 29.7 pg (26-32); Mean Corpuscular Hgb Concent. 33.5 g/dl (32-36); Mean Platelet Volume 10.4 fl (7.5-11.0); Monocyte (Absolute #) 0.44 (0.0-1.3); Monocytes % 9.1 % (0.0-12.0); Neutrophil % 75.8 % (36.0-66.0); Platelet Count 169 K/mm3 (150-450); Red Blood Count 4.28 M/mm3 (4.1-5.6); Red Cell Distribution Width 14.8 % (11.5-14.0); White Blood Count 4.8 K/mm3 (4.0-10.5)
[2019-06-28 05:20] LABS: ANION GAP 12.4 MEQ/L (5-15); BLOOD UREA NITROGEN 32 mg/dL (9-20); CHLORIDE 104 mmol/L (98-107); Calcium 8.2 mg/dL (8.4-10.2); Carbon Dioxide 23 mmol/L (22-30); Creatinine 1 1.03 mg/dL (0.66-1.25); Glucose 151 mg/dL (74-106); Potassium 3.4 mmol/L (3.5-5.1); SODIUM 136 mmol/L (137-145)
--- NOTE | 2019-06-28 08:02 | PCM.NOTE ---
Date and Time: 06/28/19 0801 Subjective Assessment: patient requiring oxygen, states he is feeling well this morning. has some dry cough, no new complaints Objective Exam General Appearance: no apparent distress, alert Skin Exam: normal color, warm, dry Respiratory Exam: rhonchi Cardiovascular Exam: regular rate/rhythm, normal heart sounds Gastrointestinal/Abdomen Exam: soft, No tenderness, No mass Extremity Exam: normal inspection, normal range of motion OBJECTIVE DATA Vital Signs: Vital Signs - 24 hr Temp Pulse Resp BP Pulse Ox 06/28/19 06:45 96 06/28/19 04:00 100.8 F 75 24 115/64 98 06/28/19 00:44 102.5 F 06/28/19 00:00 101.6 F 75 28 H 142/74 95 06/27/19 20:00 98.5 F 75 24 143/75 93 L 06/27/19 19:47 93 L 06/27/19 16:00 66 21 134/71 91 L 06/27/19 11:16 96.5 F 59 L 21 154/73 97 Oxygen-Last 24 hours Oxygen Flowrate (L/min)-RT 2 Pain Assessment - Last Documented Pain Intensity 3 Pain Scale Used 0-10 Pain Scale Intake and Output: Intake & Output 06/25/19 06/26/19 06/27/19 06/28/19 11:59 11:59 11:59 11:59 Intake Total 480 1320 Output Total 500 375 Balance -20 945 Weight 94.3 kg Lab Results: Accuchecks Date 06/27/19 Date 06/27/19 Date 06/27/19 Time 21:30 Time 16:30 Time 11:30 Accucheck Value: 139 Accucheck Value: 129 Accucheck Value: 180 Lab Results-Last 24 Hours 06/27/19 06/27/19 06/27/19 Range/Units 05:00 08:10 11:00 WBC (4.0-10.5) K/mm3 RBC (4.1-5.6) M/mm3 Hgb (12.5-18.0) gm/dl Hct (42-50) % MCV (78-100) fl MCH (26-32) pg MCHC (32-36) g/dl RDW (11.5-14.0) % Plt Count (150-450) K/mm3 MPV (7.5-11.0) fl Gran % (36.0-66.0) % Eos # (Auto) (0-0.5) Absolute Lymphs (auto) (1.0-4.6) Absolute Monos (auto) (0.0-1.3) Lymphocytes % (24.0-44.0) % Monocytes % (0.0-12.0) % Eosinophils % (0.00-5.0) % Basophils % (0.0-0.4) % Absolute Granulocytes (1.4-6.9) Basophils # (0-0.4) Sodium (137-145) mmol/L Potassium (3.5-5.1) mmol/L Chloride (98-107) mmol/L Carbon Dioxide (22-30) mmol/L Anion Gap (5-15) MEQ/L BUN (9-20) mg/dL Creatinine (0.66-1.25) mg/dL Estimated GFR ML/MIN Glucose (74-106) mg/dL Hemoglobin A1c 6.10 H (4.5-6.0) % Calcium (8.4-10.2) mg/dL Troponin I 0.014 < 0.012 (0.000-0.034) ng/mL 06/28/19 06/28/19 Range/Units 04:30 04:30 WBC 4.8 (4.0-10.5) K/mm3 RBC 4.28 (4.1-5.6) M/mm3 Hgb 12.7 (12.5-18.0) gm/dl Hct 37.9 L (42-50) % MCV 88.6 (78-100) fl MCH 29.7 (26-32) pg MCHC 33.5 (32-36) g/dl RDW 14.8 H (11.5-14.0) % Plt Count 169 (150-450) K/mm3 MPV 10.4 (7.5-11.0) fl Gran % 75.8 H (36.0-66.0) % Eos # (Auto) 0.02 (0-0.5) Absolute Lymphs (auto) 0.71 L (1.0-4.6) Absolute Monos (auto) 0.44 (0.0-1.3) Lymphocytes % 14.7 L (24.0-44.0) % Monocytes % 9.1 (0.0-12.0) % Eosinophils % 0.4 (0.00-5.0) % Basophils % 0.0 (0.0-0.4) % Absolute Granulocytes 3.66 (1.4-6.9) Basophils # 0 (0-0.4) Sodium 136 L (137-145) mmol/L Potassium 3.4 L (3.5-5.1) mmol/L Chloride 104 (98-107) mmol/L Carbon Dioxide 23 (22-30) mmol/L Anion Gap 12.4 (5-15) MEQ/L BUN 32 H (9-20) mg/dL Creatinine 1.03 (0.66-1.25) mg/dL Estimated GFR > 60.0 ML/MIN Glucose 151 H (74-106) mg/dL Hemoglobin A1c (4.5-6.0) % Calcium 8.2 L (8.4-10.2) mg/dL Troponin I (0.000-0.034) ng/mL Radiology Exams: Radiology Procedures Category Date Time Status CHEST 1 VIEW (PORTABLE) Stat Exams 06/26/19 20:52 Completed Assessment/Plan (1) Suspected COVID-19 virus infection Current Visit: Yes Status: Acute Assessment & Plan: swab pending, continue supplemental oxygen, tylenol and monitoring. taking po with no problems currently Code(s): R68.89 - OTHER GENERAL SYMPTOMS AND SIGNS (2) Fever Current Visit: Yes Status: Acute Code(s): R50.9 - FEVER, UNSPECIFIED (3) Generalized weakness Current Visit: Yes Status: Acute Code(s): R53.1 - WEAKNESS (4) Type 2 diabetes mellitus Current Visit: Yes Status: Acute (5) Coronary artery disease Current Visit: Yes Status: Acute Code(s): I25.10 - ATHSCL HEART DISEASE OF [place] CORONARY ARTERY W/O ANG PCTRS
[2019-06-28] MEDS: Coreg 6.25 MG PO SCH ×2 (09:15→22:17)
[2019-06-28] MEDS: Cozaar 50 MG PO SCH (09:15)
[2019-06-28] MEDS: ECOTRIN 81 MG PO SCH (09:16)
[2019-06-28] MEDS: NORVASC 5 MG PO SCH (09:16)
[2019-06-28] MEDS: Imdur 30 MG PO SCH (09:16)
[2019-06-28] MEDS: ZOCOR 20MG PO SCH (09:16)
[2019-06-28] MEDS: hydroDIURIL 25 MG PO SCH (09:16)
[2019-06-28] MEDS ORDERED: BABY ASPIRIN 81 MG CHEW PO SCH (10:00)
[2019-06-28] MEDS ORDERED: NON-FORMULARY ITEM (Simvastatin 40 Mg [Zocor 40 Mg] 40 MG) PO SCH (10:00)
[2019-06-28] MEDS ORDERED: HYDROCHLOROTHIAZIDE PO SCH (10:00)
[2019-06-28] MEDS ORDERED: [UNRECOGNIZED DRUG - OTHER] PO SCH (10:00)
[2019-06-28] MEDS ORDERED: LOSARTAN PO SCH (10:00)
[2019-06-29] MEDS: TYLENOL 325 MG PO PRN ×3 (04:13→20:11)
[2019-06-29 06:41] LABS: Absolute Neutrophil Ct (ANC) 2.76 (1.4-6.9); BASOPHIL % 0.2 % (0.0-0.4); Basophil (Absolute #) 0.01 (0-0.4); Eosinophil % 0.7 % (0.00-5.0); Eosinophil (Absolute #) 0.03 (0-0.5); Hematocrit 37.5 % (42-50); Hemoglobin 12.8 gm/dl (12.5-18.0); Lymphocytes % 23.5 % (24.0-44.0); Mean Cell Volume 87.4 fl (78-100); Mean Corpuscular Hemoglobin 29.8 pg (26-32); Mean Corpuscular Hgb Concent. 34.1 g/dl (32-36); Mean Platelet Volume 10.5 fl (7.5-11.0); Monocyte (Absolute #) 0.45 (0.0-1.3); Monocytes % 10.6 % (0.0-12.0); Platelet Count 165 K/mm3 (150-450); Red Blood Count 4.29 M/mm3 (4.1-5.6); Red Cell Distribution Width 14.5 % (11.5-14.0); White Blood Count 4.3 K/mm3 (4.0-10.5)
[2019-06-29 06:53] LABS: ANION GAP 10.2 MEQ/L (5-15); Calcium 8.2 mg/dL (8.4-10.2); Creatinine 1 1.42 mg/dL (0.66-1.25); Potassium 3.3 mmol/L (3.5-5.1)
[2019-06-29] MEDS: Cozaar 50 MG PO SCH (09:26)
[2019-06-29] MEDS: NORVASC 5 MG PO SCH (09:26)
[2019-06-29] MEDS: ZOCOR 20MG PO SCH (09:26)
[2019-06-29] MEDS: Coreg 6.25 MG PO SCH ×2 (09:26→21:59)
[2019-06-29] MEDS: Imdur 30 MG PO SCH (09:26)
[2019-06-29] MEDS: hydroDIURIL 25 MG PO SCH (09:27)
[2019-06-29] MEDS: ECOTRIN 81 MG PO SCH (09:28)
[2019-06-29] MEDS ORDERED: Klor Con 10 MEQ PO ONE (10:17)
--- NOTE | 2019-06-29 10:17 | PCM.NOTE ---
Date and Time: 06/29/19 1014 Subjective Assessment: patient still weak and coughing, requiring oxygen but feels like his breathing is stable. no new complaints today Objective Exam General Appearance: no apparent distress, alert, other (acutely ill appearing) Neurologic Exam: alert, cooperative Skin Exam: normal color, warm, dry Respiratory Exam: rhonchi Cardiovascular Exam: regular rate/rhythm, normal heart sounds Gastrointestinal/Abdomen Exam: soft, No tenderness, No mass Extremity Exam: normal inspection, normal range of motion OBJECTIVE DATA Vital Signs: Vital Signs - 24 hr Temp Pulse Resp BP Pulse Ox 06/29/19 09:04 93 L 06/29/19 08:00 99.2 F 63 19 141/74 95 06/29/19 04:15 99.1 F 67 20 142/72 92 L 06/29/19 02:00 100.2 F 06/28/19 23:39 101.1 F 72 18 128/76 92 L 06/28/19 23:21 91 L 06/28/19 19:27 99.5 F 79 24 128/68 91 L 06/28/19 16:00 100.0 F 69 24 134/69 90 L 06/28/19 11:54 99.9 F 75 24 116/69 90 L Pain Assessment - Last Documented Pain Intensity 0 Pain Scale Used 0-10 Pain Scale Intake and Output: Intake & Output 06/26/19 06/27/19 06/28/19 06/29/19 11:59 11:59 11:59 11:59 Intake Total 480 1320 1200 Output Total 639 840 1406 Balance -20 545 -275 Weight 94.3 kg 94.3 kg Lab Results: Accuchecks Date 06/28/19 Date 06/28/19 Time 16:30 Time 12:00 Accucheck Value: 111 Accucheck Value: 112 Accucheck Value: 106 Lab Results-Last 24 Hours 06/27/19 06/29/19 06/29/19 Range/Units 00:10 05:09 05:09 WBC 4.3 (4.0-10.5) K/mm3 RBC 4.29 (4.1-5.6) M/mm3 Hgb 12.8 (12.5-18.0) gm/dl Hct 37.5 L (42-50) % MCV 87.4 (78-100) fl MCH 29.8 (26-32) pg MCHC 34.1 (32-36) g/dl RDW 14.5 H (11.5-14.0) % Plt Count 165 (150-450) K/mm3 MPV 10.5 (7.5-11.0) fl Gran % 65.0 (36.0-66.0) % Eos # (Auto) 0.03 (0-0.5) Absolute Lymphs (auto) 1.00 (1.0-4.6) Absolute Monos (auto) 0.45 (0.0-1.3) Lymphocytes % 23.5 L (24.0-44.0) % Monocytes % 10.6 (0.0-12.0) % Eosinophils % 0.7 (0.00-5.0) % Basophils % 0.2 (0.0-0.4) % Absolute Granulocytes 2.76 (1.4-6.9) Basophils # 0.01 (0-0.4) Sodium 136 L (137-145) mmol/L Potassium 3.3 L (3.5-5.1) mmol/L Chloride 104 (98-107) mmol/L Carbon Dioxide 25 (22-30) mmol/L Anion Gap 10.2 (5-15) MEQ/L BUN 34 H (9-20) mg/dL Creatinine 1.42 H (0.66-1.25) mg/dL Estimated GFR 52.7 ML/MIN Glucose 111 H (74-106) mg/dL Calcium 8.2 L (8.4-10.2) mg/dL COVID-19 (SANDRA) SEE SEPARATE REPORT Multi-Disciplinary Progress Notes: Multi-Disciplinary Progress Notes 06/28/19 10:37 Case Management Note by Anahi Walker S/Ramakrishna PATIENT VIA PHONE- CONTINUES TO DENY ANY NEEDS REGARDING DC AT THIS TIME. PATIENT PLANS TO RETURN HOME TO HIS PRIOR LEVEL OF FUNCTIONING WITH HIS AND SON TO ASSIST WITH ANY NEEDS Initialized on 06/28/19 10:37 - END OF NOTE Assessment/Plan (1) COVID-19 virus infection Current Visit: Yes Status: Acute Assessment & Plan: patient is currently stable, continue supportive care. if oxygen requirements increase or case progressing consider hydroxychloroquine/zithromax, discussed with patient potential side effects and unknown benefit and he agrees to receive and understands this is a non-approved treatment with potential side effects and efficacy is unknown. Code(s): U07.1 - COVID-19 (2) Fever Current Visit: Yes Status: Acute Code(s): R50.9 - FEVER, UNSPECIFIED (3) Generalized weakness Current Visit: Yes Status: Acute Code(s): R53.1 - WEAKNESS (4) Type 2 diabetes mellitus Current Visit: Yes Status: Acute (5) Coronary artery disease Current Visit: Yes Status: Acute Code(s): I25.10 - ATHSCL HEART DISEASE OF [place] CORONARY ARTERY W/O ANG PCTRS
[2019-06-29] MEDS: ENOXAPARIN SODIUM SQ SCH (10:57)
[2019-06-30 06:00] LABS: ANION GAP 10.1 MEQ/L (5-15); Calcium 8.5 mg/dL (8.4-10.2); Creatinine 1 1.35 mg/dL (0.66-1.25); MAGNESIUM 2.2 mg/dL (1.6-2.3); Potassium 3.6 mmol/L (3.5-5.1)
[2019-06-30 06:00] LABS: Absolute Neutrophil Ct (ANC) 2.43 (1.4-6.9); BASOPHIL % 0.2 % (0.0-0.4); Basophil (Absolute #) 0.01 (0-0.4); Eosinophil % 0.7 % (0.00-5.0); Eosinophil (Absolute #) 0.03 (0-0.5); Hematocrit 39.8 % (42-50); Hemoglobin 13.4 gm/dl (12.5-18.0); Lymphocyte (Absolute #) 1.55 (1.0-4.6); Lymphocytes % 34.4 % (24.0-44.0); Mean Cell Volume 87.9 fl (78-100); Mean Corpuscular Hemoglobin 29.6 pg (26-32); Mean Corpuscular Hgb Concent. 33.7 g/dl (32-36); Mean Platelet Volume 10.5 fl (7.5-11.0); Monocyte (Absolute #) 0.49 (0.0-1.3); Monocytes % 10.9 % (0.0-12.0); Neutrophil % 53.8 % (36.0-66.0); Platelet Count 191 K/mm3 (150-450); Red Blood Count 4.53 M/mm3 (4.1-5.6); Red Cell Distribution Width 14.7 % (11.5-14.0); White Blood Count 4.5 K/mm3 (4.0-10.5)
--- NOTE | 2019-06-30 08:26 | PCM.NOTE ---
Date and Time: 06/30/19823 Subjective Assessment: patient still has a lot of cough, requiring oxygen. he remains weak and ill Objective Exam General Appearance: alert, other (acutely ill appearing) Neurologic Exam: alert, oriented x 3 Respiratory Exam: normal breath sounds, lungs clear, No respiratory distress Cardiovascular Exam: regular rate/rhythm, normal heart sounds Gastrointestinal/Abdomen Exam: soft, No tenderness, No mass Extremity Exam: normal inspection, normal range of motion OBJECTIVE DATA Vital Signs: Vital Signs - 24 hr Temp Pulse Resp BP Pulse Ox 06/30/19 04:00 98.1 F 64 24 138/74 97 06/30/19 00:00 99.3 F 62 141/76 95 06/29/19 20:21 95 06/29/19 20:00 100.8 F 75 30 H 144/77 95 06/29/19 16:00 99.0 F 58 L 19 130/67 92 L 06/29/19 11:44 98.0 F 62 18 124/74 93 L 06/29/19 09:04 93 L Oxygen-Last 24 hours Oxygen Flowrate (L/min)-RT 2 Oxygen Flowrate (L/min)-RT 2 Oxygen Flowrate (L/min)-RT 2 Pain Assessment - Last Documented Pain Intensity 0 Pain Scale Used FLACC Intake and Output: Intake & Output 06/27/19 06/28/19 06/29/19 06/30/19 11:59 11:59 11:59 11:59 Intake Total 480 1320 1200 980 Output Total 404 463 2288 1550 Balance -20 967 -406 -256 Weight 94.3 kg 94.3 kg Lab Results: Accuchecks Accucheck Value: 104 Accucheck Value: 130 Accucheck Value: 121 Accucheck Value: 115 Lab Results-Last 24 Hours 06/30/19 06/30/19 Range/Units 05:30 05:50 WBC 4.5 (4.0-10.5) K/mm3 RBC 4.53 (4.1-5.6) M/mm3 Hgb 13.4 (12.5-18.0) gm/dl Hct 39.8 L (42-50) % MCV 87.9 (78-100) fl MCH 29.6 (26-32) pg MCHC 33.7 (32-36) g/dl RDW 14.7 H (11.5-14.0) % Plt Count 191 (150-450) K/mm3 MPV 10.5 (7.5-11.0) fl Gran % 53.8 (36.0-66.0) % Eos # (Auto) 0.03 (0-0.5) Absolute Lymphs (auto) 1.55 (1.0-4.6) Absolute Monos (auto) 0.49 (0.0-1.3) Lymphocytes % 34.4 (24.0-44.0) % Monocytes % 10.9 (0.0-12.0) % Eosinophils % 0.7 (0.00-5.0) % Basophils % 0.2 (0.0-0.4) % Absolute Granulocytes 2.43 (1.4-6.9) Basophils # 0.01 (0-0.4) Sodium 139 (137-145) mmol/L Potassium 3.6 (3.5-5.1) mmol/L Chloride 104 (98-107) mmol/L Carbon Dioxide 29 (22-30) mmol/L Anion Gap 10.1 (5-15) MEQ/L BUN 34 H (9-20) mg/dL Creatinine 1.35 H (0.66-1.25) mg/dL Estimated GFR 55.9 ML/MIN Glucose 104 (74-106) mg/dL Calcium 8.5 (8.4-10.2) mg/dL Magnesium 2.2 (1.6-2.3) mg/dL Radiology Exams: Radiology Procedures Category Date Time Status CHEST 1 VIEW (PORTABLE) Routine Exams 06/30/19 07:00 Taken Assessment/Plan (1) COVID-19 virus infection Current Visit: Yes Status: Acute Assessment & Plan: still requiring oxygen, patient remains acutely ill. continue supportive care/ monitoring at this time. Code(s): U07.1 - COVID-19 (2) Fever Current Visit: Yes Status: Acute Code(s): R50.9 - FEVER, UNSPECIFIED (3) Generalized weakness Current Visit: Yes Status: Acute Code(s): R53.1 - WEAKNESS (4) Type 2 diabetes mellitus Current Visit: Yes Status: Acute (5) Coronary artery disease Current Visit: Yes Status: Acute Code(s): I25.10 - ATHSCL HEART DISEASE OF [place] CORONARY ARTERY W/O ANG PCTRS
--- NOTE | 2019-06-30 08:51 | XRAY ---
Indication: Hypoxia. COVID 19. Comparison: June 26, 2019. Portable apical lordotic chest markedly underinflated accentuating cardiopulmonary structures. No focal infiltrate, consolidation, or large effusion. 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 Bony thorax intact again with mild degenerative changes. Stable punctate left breast foreign body. Impression: Nonacute underinflated chest.
[2019-06-30] MEDS: Coreg 6.25 MG PO SCH ×2 (08:52→21:18)
[2019-06-30] MEDS: ECOTRIN 81 MG PO SCH (08:53)
[2019-06-30] MEDS: hydroDIURIL 25 MG PO SCH (08:53)
[2019-06-30] MEDS: Cozaar 50 MG PO SCH (08:53)
[2019-06-30] MEDS: Imdur 30 MG PO SCH (08:53)
[2019-06-30] MEDS: ENOXAPARIN SODIUM SQ SCH (08:53)
[2019-06-30] MEDS: NORVASC 5 MG PO SCH (08:54)
[2019-06-30] MEDS: ZOCOR 20MG PO SCH (08:54)
[2019-06-30] MEDS: Sodium Chloride 0.9% 10 ML FLUSH Syringe IV SCH ×2 (21:19→21:20)
[2019-06-30] MEDS: TYLENOL 325 MG PO PRN (21:34)
[2019-07-01] MEDS: Sodium Chloride 0.9% 10 ML FLUSH Syringe IV SCH ×3 (05:05→19:33)
[2019-07-01 05:31] LABS: Absolute Neutrophil Ct (ANC) 3.03 (1.4-6.9); BASOPHIL % 0.2 % (0.0-0.4); Basophil (Absolute #) 0.01 (0-0.4); Eosinophil % 0.6 % (0.00-5.0); Eosinophil (Absolute #) 0.03 (0-0.5); Hematocrit 41.7 % (42-50); Hemoglobin 14.1 gm/dl (12.5-18.0); Lymphocyte (Absolute #) 1.47 (1.0-4.6); Lymphocytes % 28.5 % (24.0-44.0); Mean Cell Volume 87.6 fl (78-100); Mean Corpuscular Hemoglobin 29.6 pg (26-32); Mean Corpuscular Hgb Concent. 33.8 g/dl (32-36); Mean Platelet Volume 10.4 fl (7.5-11.0); Monocyte (Absolute #) 0.62 (0.0-1.3); Neutrophil % 58.7 % (36.0-66.0); Platelet Count 209 K/mm3 (150-450); Red Blood Count 4.76 M/mm3 (4.1-5.6); Red Cell Distribution Width 14.8 % (11.5-14.0); White Blood Count 5.2 K/mm3 (4.0-10.5)
[2019-07-01 05:37] LABS: ALBUMIN 3.6 g/dL (3.5-5.0); ALKALINE PHOSPHATASE 54 U/L (38-126); ANION GAP 12.2 MEQ/L (5-15); BLOOD UREA NITROGEN 30 mg/dL (9-20); CHLORIDE 103 mmol/L (98-107); Calcium 8.5 mg/dL (8.4-10.2); Carbon Dioxide 28 mmol/L (22-30); Creatinine 1 1.01 mg/dL (0.66-1.25); Glucose 111 mg/dL (74-106); Potassium 3.6 mmol/L (3.5-5.1); SGOT/AST 48 U/L (17-59); SGPT/ALT 48 U/L (0-50); SODIUM 139 mmol/L (137-145)
--- NOTE | 2019-07-01 08:19 | PCM.NOTE ---
Date and Time: 07/01/19816 Subjective Assessment: patient reports he is feeling some better today, energy level is improved. cough persists, he is still weak Objective Exam General Appearance: no apparent distress Neurologic Exam: alert, oriented x 3, cooperative Respiratory Exam: normal breath sounds, lungs clear, No respiratory distress Cardiovascular Exam: regular rate/rhythm, normal heart sounds Gastrointestinal/Abdomen Exam: soft, No tenderness, No mass Extremity Exam: normal inspection, normal range of motion OBJECTIVE DATA Vital Signs: Vital Signs - 24 hr Temp Pulse Resp BP Pulse Ox 07/01/19 04:20 99.0 F 65 18 130/68 95 07/01/19 00:25 99.5 F 62 15 116/63 94 L 06/30/19 20:15 96 06/30/19 19:42 97.0 F 69 20 118/67 93 L 06/30/19 16:00 99.8 F 69 16 115/74 95 06/30/19 12:00 98.8 F 64 18 121/69 93 L Oxygen-Last 24 hours Oxygen Flowrate (L/min)-RT 2 Oxygen Flowrate (L/min)-RT 2 Pain Assessment - Last Documented Pain Intensity 4 Pain Scale Used 0-10 Pain Scale Intake and Output: Intake & Output 06/28/19 06/29/19 06/30/19 07/01/19 11:59 11:59 11:59 11:59 Intake Total 1320 1200 1100 1300 Output Total 775 1475 1550 1325 Balance 545 -275 -450 -25 Weight 94.3 kg Lab Results: Accuchecks Accucheck Value: 123 Accucheck Value: 113 Accucheck Value: 125 Lab Results-Last 24 Hours 07/01/19 07/01/19 Range/Units 05:00 05:15 WBC 5.2 (4.0-10.5) K/mm3 RBC 4.76 (4.1-5.6) M/mm3 Hgb 14.1 (12.5-18.0) gm/dl Hct 41.7 L (42-50) % MCV 87.6 (78-100) fl MCH 29.6 (26-32) pg MCHC 33.8 (32-36) g/dl RDW 14.8 H (11.5-14.0) % Plt Count 209 (150-450) K/mm3 MPV 10.4 (7.5-11.0) fl Gran % 58.7 (36.0-66.0) % Eos # (Auto) 0.03 (0-0.5) Absolute Lymphs (auto) 1.47 (1.0-4.6) Absolute Monos (auto) 0.62 (0.0-1.3) Lymphocytes % 28.5 (24.0-44.0) % Monocytes % 12.0 (0.0-12.0) % Eosinophils % 0.6 (0.00-5.0) % Basophils % 0.2 (0.0-0.4) % Absolute Granulocytes 3.03 (1.4-6.9) Basophils # 0.01 (0-0.4) Sodium 139 (137-145) mmol/L Potassium 3.6 (3.5-5.1) mmol/L Chloride 103 (98-107) mmol/L Carbon Dioxide 28 (22-30) mmol/L Anion Gap 12.2 (5-15) MEQ/L BUN 30 H (9-20) mg/dL Creatinine 1.01 (0.66-1.25) mg/dL Estimated GFR > 60.0 ML/MIN Glucose 111 H (74-106) mg/dL Calcium 8.5 (8.4-10.2) mg/dL Total Bilirubin 0.60 (0.2-1.3) mg/dL AST 48 (17-59) U/L ALT 48 (0-50) U/L Alkaline Phosphatase 54 (38-126) U/L Serum Total Protein 7.0 (6.3-8.2) g/dL Albumin 3.6 (3.5-5.0) g/dL Radiology Exams: Radiology Procedures Category Date Time Status CHEST 1 VIEW (PORTABLE) Routine Exams 06/30/19 07:00 Completed Multi-Disciplinary Progress Notes: Multi-Disciplinary Progress Notes 06/30/19 10:20 (created 06/30/19 15:27) Case Management Note by Kathy Pitt DISCHARGE PLAN REVIEWED, NO CHANGE, STILL PLAN TO GO HOME WITH SPOUSE AND GROWN SON, DENIES NEED FOR ANY DME/SERVICES AT THIS TIME. WILL CONTINUE TO MONITOR. Initialized on 06/30/19 15:27 - END OF NOTE Assessment/Plan (1) COVID-19 virus infection Current Visit: Yes Status: Acute Assessment & Plan: supportive care and supplemental oxygen at this time. Code(s): U07.1 - COVID-19 (2) Fever Current Visit: Yes Status: Acute Code(s): R50.9 - FEVER, UNSPECIFIED (3) Generalized weakness Current Visit: Yes Status: Acute Code(s): R53.1 - WEAKNESS (4) Type 2 diabetes mellitus Current Visit: Yes Status: Acute (5) Coronary artery disease Current Visit: Yes Status: Acute Code(s): I25.10 - ATHSCL HEART DISEASE OF [place] CORONARY ARTERY W/O ANG PCTRS
[2019-07-01] MEDS: Coreg 6.25 MG PO SCH ×2 (09:57→22:57)
[2019-07-01] MEDS: Cozaar 50 MG PO SCH (09:57)
[2019-07-01] MEDS: Imdur 30 MG PO SCH (09:58)
[2019-07-01] MEDS: ENOXAPARIN SODIUM SQ SCH (09:58)
[2019-07-01] MEDS: ECOTRIN 81 MG PO SCH (09:58)
[2019-07-01] MEDS: hydroDIURIL 25 MG PO SCH (09:58)
[2019-07-01] MEDS: NORVASC 5 MG PO SCH (09:59)
[2019-07-01] MEDS: ZOCOR 20MG PO SCH (09:59)
[2019-07-01] MEDS: TYLENOL 325 MG PO PRN (17:06)
[2019-07-02] MEDS: Sodium Chloride 0.9% 10 ML FLUSH Syringe IV SCH ×3 (06:52→21:44)
--- NOTE | 2019-07-02 09:44 | PCM.NOTE ---
Date and Time: 07/02/19 09 Subjective Assessment: patient is feeling some better, standing at the bedside this morning. he is frustrated about his oxygen tubing etc getting tangled. his cough is improving, tolerating po and does not feel short of breath Objective Exam General Appearance: no apparent distress Neurologic Exam: alert, oriented x 3, cooperative Skin Exam: normal color, warm, dry Respiratory Exam: normal breath sounds, lungs clear, No respiratory distress Cardiovascular Exam: regular rate/rhythm, normal heart sounds Gastrointestinal/Abdomen Exam: soft, No tenderness, No mass Extremity Exam: normal inspection, normal range of motion OBJECTIVE DATA Vital Signs: Vital Signs - 24 hr Temp Pulse Resp BP Pulse Ox 07/02/19 08:28 94 L 07/02/19 07:00 98.1 F 67 18 129/69 91 L 07/02/19 03:00 100.7 F 66 23 125/71 95 07/01/19 23:00 97.8 F 66 22 142/72 97 07/01/19 20:10 96 07/01/19 20:02 89 L 07/01/19 20:00 98.7 F 65 20 116/67 92 L 07/01/19 16:00 99.9 F 64 18 116/76 92 L 07/01/19 12:00 99.6 F 69 20 115/69 93 L 07/01/19 11:31 94 L Oxygen-Last 24 hours Oxygen Flowrate (L/min)-RT 2 Oxygen Flowrate (L/min)-RT 2 Oxygen Flowrate (L/min)-RT 2 Pain Assessment - Last Documented Pain Intensity 0 Pain Scale Used [facility] Intake and Output: Intake & Output 06/29/19 06/30/19 07/01/19 07/02/19 11:59 11:59 11:59 11:59 Intake Total 1200 1100 1540 680 Output Total 1475 1550 1325 1225 Balance -275 -450 215 545 Lab Results: Accuchecks Date 07/01/19 Date 07/01/19 Date 07/01/19 Time 20:43 Time 16:27 Time 11:30 Accucheck Value: 115 Accucheck Value: 134 Accucheck Value: 133 Accucheck Value: 127 Assessment/Plan (1) COVID-19 virus infection Current Visit: Yes Status: Acute Assessment & Plan: requiring 2L oxygen support, normal work of breathing. his at home has asthma and so far is not sick. would like to try and wean from oxygen requirement prior to discharge Code(s): U07.1 - COVID-19 (2) Fever Current Visit: Yes Status: Acute Code(s): R50.9 - FEVER, UNSPECIFIED (3) Generalized weakness Current Visit: Yes Status: Acute Code(s): R53.1 - WEAKNESS (4) Type 2 diabetes mellitus Current Visit: Yes Status: Acute (5) Coronary artery disease Current Visit: Yes Status: Acute Code(s): I25.10 - ATHSCL HEART DISEASE OF [place] CORONARY ARTERY W/O ANG PCTRS
[2019-07-02] MEDS: hydroDIURIL 25 MG PO SCH (10:18)
[2019-07-02] MEDS: NORVASC 5 MG PO SCH (10:19)
[2019-07-02] MEDS: ZOCOR 20MG PO SCH (10:19)
[2019-07-02] MEDS: Imdur 30 MG PO SCH (10:19)
[2019-07-02] MEDS: Cozaar 50 MG PO SCH (10:19)
[2019-07-02] MEDS: ECOTRIN 81 MG PO SCH (10:19)
[2019-07-02] MEDS: ENOXAPARIN SODIUM SQ SCH (10:19)
[2019-07-02] MEDS: Coreg 6.25 MG PO SCH ×2 (10:19→21:44)
[2019-07-02] MEDS: TYLENOL 325 MG PO PRN (23:15)
[2019-07-03] MEDS: Sodium Chloride 0.9% 10 ML FLUSH Syringe IV SCH (04:10)
[2019-07-03 09:00] VITALS: BP 133/76
--- NOTE | 2019-07-03 09:54 | PCM.DS ---
Discharge Summary Date of Admission: 06/27/19 09:49 Admitting Physician: VON GÓMEZ Primary Care Provider: VON GÓMEZ Allergies Allergies No Known Drug Allergies Allergy (Verified 06/26/19 21:54) Hospital Summary - Hospital Course Hospital Course: patient was admitted with weakness and difficulty walking, requiring oxygen and found to have positive COVID-19 swab, required treatment for fever and oxygen support. he has progressed and strength has been regained, he is able to ambulate to the restroom on his own and is feeling much better. still has some cough but fever has resolved, he has a cardiac history. not on oxygen prior to illness - Vitals & Intake/Output Vital Signs: Vital Signs Temperature 98.2 F 07/03/19 08:00 Pulse Rate 72 07/03/19 08:00 Respiratory Rate 18 07/03/19 08:00 Blood Pressure 133/76 07/03/19 08:00 O2 Sat by Pulse Oximetry 90 L 07/03/19 08:00 Intake & Output: Intake & Output 06/30/19 07/01/19 07/02/19 07/03/19 11:59 11:59 11:59 11:59 Intake Total 1100 1540 1160 1140 Output Total 1550 1325 1725 900 Balance -450 215 -565 240 - Lab Result Diagrams: 07/01/19 05:15 07/01/19 05:00 Lab Results-Last 24 Hrs: Accuchecks Accucheck Value: 109 Accucheck Value: 133 Accucheck Value: 117 Accucheck Value: 166 Micro Results-Entire Visit: Microbiology 06/26/19 21:20 Blood Culture Gram Stain - Final Blood Not Reportable Blood Culture - Final NO GROWTH 06/26/19 21:20 Blood Culture Gram Stain - Final Blood Not Reportable Blood Culture - Final NO GROWTH Accuchecks Accucheck Value: 109 Accucheck Value: 133 Accucheck Value: 117 Accucheck Value: 166 - Procedures and Test Procedures and Tests throughout Hospitalization: Therapy Orders & Screens 06/27/19 08:41 Oxygen NASAL CANNULA 2 lpm Comment: Diagnosis: Rule out COVID, generalized weakness, hypokalemia, SOB, falls 07/03/19 01:13 Flutter Therapy UD Comment: Diagnosis: Rule out COVID, generalized weakness, hypokalemia, SOB, falls Discharge Exam General Appearance: no apparent distress Neurologic Exam: alert, oriented x 3, cooperative Respiratory Exam: normal breath sounds, lungs clear, No respiratory distress Cardiovascular Exam: regular rate/rhythm, normal heart sounds Gastrointestinal/Abdomen Exam: soft, No tenderness, No mass Extremity Exam: normal inspection, normal range of motion Skin Exam: normal color, warm, dry Final Diagnosis/Problem List - Final Discharge Diagnosis/Problem (1) COVID-19 virus infection Current Visit: Yes Status: Acute Assessment & Plan: stressed to patient if any respiratory distress or difficulty needs to return for evaluation NELIDA. he has been quite stable and off oxygen at time of discharge. also discussed home isolation and to isolate away from immediate family, wear a mask when in contact in car etc. he understands all of these instructions and wishes to be discharged to home Code(s): U07.1 - COVID-19 (2) Fever Current Visit: Yes Status: Acute Code(s): R50.9 - FEVER, UNSPECIFIED (3) Generalized weakness Current Visit: Yes Status: Acute Code(s): R53.1 - WEAKNESS (4) Type 2 diabetes mellitus Current Visit: Yes Status: Acute (5) Coronary artery disease Current Visit: Yes Status: Acute Code(s): I25.10 - ATHSCL HEART DISEASE OF [place] CORONARY ARTERY W/O ANG PCTRS - Discharge Disposition: Home, Self-Care Condition: Stable Prescriptions: Continue Aspirin [Baby Aspirin] 81 mg PO DAILY Simvastatin 40 mg [Zocor 40 mg] 40 mg PO DAILY Isosorbide Mononitrate 30 mg [Imdur 30 MG] 30 mg PO DAILY Losartan/Hydrochlorothiazide [Losartan-Hctz 100-25 mg Tab] 1 tablet PO DAILY Pioglitazone HCl 15 mg PO DAILY Metformin HCl [Metformin ER Osmotic] 500 mg PO BID Amlodipine Besylate 5 mg PO DAILY carvediloL [Carvedilol] 6.25 mg PO BID Follow up with: VON GÓMEZ MD [Primary Care Provider] - 1 Week (telemed visit)
[2019-07-03 10:22] VITALS: PULSE 65; O2SAT 92
[2019-07-03] MEDS: ECOTRIN 81 MG PO SCH (10:23)
[2019-07-03] MEDS: hydroDIURIL 25 MG PO SCH (10:24)
[2019-07-03] MEDS: NORVASC 5 MG PO SCH (10:24)
[2019-07-03] MEDS: ENOXAPARIN SODIUM SQ SCH (10:24)
[2019-07-03] MEDS: Coreg 6.25 MG PO SCH (10:24)
[2019-07-03] MEDS: ZOCOR 20MG PO SCH (10:24)
[2019-07-03] MEDS: Imdur 30 MG PO SCH (10:24)
[2019-07-03] MEDS: Cozaar 50 MG PO SCH (10:24)
== END 2019-07-03 12:08 | disposition home or self-care (01) | DRG 179 ==
LOC: ED 20:44 → INTOOBSV 06-27 00:03 → MED SURG 06-27 00:03 → OBSVTOIN 06-27 09:49
PROVIDERS: ADMIT Family Medicine; ATTEND Family Medicine
DX: U07.1 COVID-19 (principal); R05 Cough; R50.9 Fever, unspecified; R06.02 Shortness of breath; I10 Essential (primary) hypertension; E78.00 Pure hypercholesterolemia, unspecified; E11.9 Type 2 diabetes mellitus without complications; R53.1 Weakness; E87.6 Hypokalemia; I25.10 Atherosclerotic heart disease of native coronary artery without angina pectoris; Z79.899 Other long term (current) drug therapy; Z99.81 Dependence on supplemental oxygen; Z95.1 Presence of aortocoronary bypass graft
CPT/HCPCS: 36415; 71045; 80048; 80053; 81001; 82962; 83036; 83605; 83735; 84484; 85025; 87040; 87631; 93005; 94667; 94760; 94762; 96360; 99285; J1650; J1817; J2405; U0002; A9270-GY

== ENCOUNTER 2019-07-05 13:40 | Inpatient (IN) | payer MEDICARE, BC ==
--- NOTE | 2019-07-05 13:50 | ERPHSYRPT ---
- History of Present Illness Time Seen by Provider: 07/05/19 13:45 Source: patient Exam Limitations: no limitations Physician History: This is a 68-year-old white male who was discharged from the hospital at [facility] with respiratory issues and positive coronavirus 19 lab. Patient was home and in the last 24 hours his shortness of breath and coughing has worsened per his report. We were aware in the emergency department the patient would be coming back to the hospital for reevaluation. I contacted Dr. Gómez prior to the patient arrival and we agreed on performing basic blood work , chest x-ray and vital signs. Since we are all aware he has positive for COVID -19 the evaluation will determine whether or not the patient is admitted into this facility or transferred out. Patient denies chest pain. Patient denies nausea vomiting diarrhea and denies abdominal pain. Patient has a history of [id number] diabetes and hypertension. Patient vital signs upon arrival to the emergency department shows the patient in mild distress with movement, heart rate 79 room air oxygenation with the mask in place of 92%. Patient is afebrile at 98.8 F Timing/Duration: day(s) (2) Activities at Onset: none Severity of Dyspnea-Max: mild Severity of Dyspnea-Current: mild Possible Cause: occasional episodes Modifying Factors: Improves With: coughing Associated Symptoms: anxiety, cough, No chest pain/discomfort, No fever Allergies/Adverse Reactions: No Known Drug Allergies Allergy (Verified 06/26/19 21:54) Home Medications: Aspirin [Baby Aspirin] 81 mg PO DAILY 06/30/12 [History] Simvastatin 40 mg [Zocor 40 mg] 40 mg PO DAILY 06/05/13 [History] Isosorbide Mononitrate 30 mg [Imdur 30 MG] 30 mg PO DAILY 09/22/17 [History ] Losartan/Hydrochlorothiazide [Losartan-Hctz 100-25 mg Tab] 1 tablet PO DAILY 09/04 [History] Metformin HCl [Metformin ER Osmotic] 500 mg PO BID 09/22/17 [History] Pioglitazone HCl 15 mg PO DAILY 09/22/17 [History] Amlodipine Besylate 5 mg PO DAILY 06/27/19 [History] carvediloL [Carvedilol] 6.25 mg PO BID 06/27/19 [History] Hx Tetanus, Diphtheria Vaccination/Date Given: Yes Hx Influenza Vaccination/Date Given: Yes Hx Pneumococcal Vaccination/Date Given: Yes Travel Risk - International Travel Have you traveled outside of the country in past 3 weeks: No Have you or anyone close to you been diagnosed with or: No Do your reside in a community with a known COVID-19 case?: Yes If Yes where:: [place] - Coronavirus Screening Has patient experienced Coronavirus symptoms: Yes Symptoms experienced: respiratory symptoms (i.e.Cought,shortness of breath) - Review of Systems Constitutional: No Symptoms Eyes: No Symptoms Ears, Nose, & Throat: No Symptoms Respiratory: Cough, Dyspnea Cardiac: No Symptoms Abdominal/Gastrointestinal: No Symptoms Genitourinary Symptoms: No Symptoms Musculoskeletal: No Symptoms Skin: No Symptoms Neurological: No Symptoms Psychological: No Symptoms Endocrine: No Symptoms Hematologic/Lymphatic: No Symptoms Immunological/Allergic: No Symptoms All Other Systems: Reviewed and Negative - Past Medical History Pertinent Past Medical History: Yes Neurological History: No Pertinent History ENT History: No Pertinent History Cardiac History: High Cholesterol, Hypertension Respiratory History: No Pertinent History Endocrine Medical History: Diabetes Type I Musculoskeletal History: No Pertinent History GI Medical History: No Pertinent History History: No Pertinent History Psycho-Social History: No Pertinent History Male Reproductive Disorders: No Pertinent History - Past Surgical History Past Surgical History: Yes Neuro Surgical History: No Pertinent History Cardiac: Valve Replacement Gastrointestinal: No Pertinent History, Hernia Repair Genitourinary: No Pertinent History Musculoskeletal: Orthopedic Surgery Male Surgical History: No Pertinent History Other Surgical History: 2009 back,disc with annel and screws placed - Social History Smoking Status: Never smoker Exposure to second hand smoke: No Alcohol Use: None Drug Use: none Patient Lives Alone: No Significant Family History: no pertinent family hx - Nursing Vital Signs Nursing Vital Signs: Initial Vital Signs Temperature 98.9 F 07/05/19 13:52 Pulse Rate 70 07/05/19 13:52 Respiratory Rate 24 07/05/19 13:52 Blood Pressure 109/54 07/05/19 13:52 O2 Sat by Pulse Oximetry 92 L 07/05/19 13:52 Pain Scale Pain Intensity 0 - Physical Exam General Appearance: mild distress, alert, anxiety Eye Exam: PERRL/EOMI, eyes nml inspection Ears, Nose, Throat Exam: hearing grossly normal Neck Exam: normal inspection, non-tender, supple, full range of motion Respiratory Exam: normal breath sounds, lungs clear, airway intact, No chest tenderness, No respiratory distress Cardiovascular/Chest Exam: normal heart sounds, regular rate/rhythm Abdominal/Gastrointestinal Exam: soft, normal bowel sounds, No tenderness Rectal Exam: not done Extremity Exam: non-tender, normal range of motion, normal inspection Neurologic Exam: alert, oriented x 3, cooperative, 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, normal mood/affect, nml cerebellar function, nml station & gait Skin Exam: normal color, warm, dry Lymphatic Exam: No adenopathy SpO2 Interpretation: borderline oxygenation O2 Delivery: Room Air - Course Nursing assessment & vital signs reviewed: Yes Ordered Tests: Active Orders 24 hr Category Date Time Status Maintenance And Repair Worker STAT Care 07/05/19 13:48 Active IV Insertion STAT Care 07/05/19 13:48 Active Isolation, Initiate & Maintain Q4H Care 07/05/19 14:03 Active Pulse Oximetry (ED) STAT Care 07/05/19 13:48 Active CHEST 1 VIEW (PORTABLE) Routine Exams 07/05/19 13:42 Completed BMP Stat Lab 07/05/19 13:45 Completed CBC W DIFF Stat Lab 07/05/19 13:45 Completed Lactic Acid Stat Lab 07/05/19 13:48 Completed Manual Differential NC Stat Lab 07/05/19 13:45 Completed NT PRO BNP Stat Lab 07/05/19 13:45 Completed TROPONIN Q3H Lab 07/05/19 13:45 Completed TROPONIN Q3H Lab 07/05/19 17:00 Ordered TROPONIN Q3H Lab 07/05/19 20:00 Ordered TROPONIN Q3H Lab 07/05/19 23:00 Ordered TROPONIN Q3H Lab 07/06/19 02:00 Ordered Lab/Rad Data: Laboratory Result Diagrams 07/05/19 13:45 07/05/19 13:45 Laboratory Results 07/05/19 07/05/19 07/05/19 Range/Units 13:48 13:45 13:45 WBC (4.0-10.5) K/mm3 RBC (4.1-5.6) M/mm3 Hgb (12.5-18.0) gm/dl Hct (42-50) % MCV (78-100) fl MCH (26-32) pg MCHC (32-36) g/dl RDW (11.5-14.0) % Plt Count (150-450) K/mm3 MPV (7.5-11.0) fl Absolute Granulocytes (1.4-6.9) Segmented Neutrophils (36.-66.) % Lymphocytes (Manual) (24-44) % Monocytes (Manual) (0.0-12.0) % Eosinophils (Manual) (0.00-3.0) % Basophils (Manual) (0.0-1.0) % Platelet Estimate (NORMAL) RBC Morphology Sodium 141 (137-145) mmol/L Potassium 2.9 L* (3.5-5.1) mmol/L Chloride 102 (98-107) mmol/L Carbon Dioxide 29 (22-30) mmol/L Anion Gap 12.6 (5-15) MEQ/L BUN 33 H (9-20) mg/dL Creatinine 1.54 H (0.66-1.25) mg/dL Estimated GFR 48.0 ML/MIN Glucose 159 H (74-106) mg/dL Lactic Acid 1.2 (0.4-2.0) Calcium 8.8 (8.4-10.2) mg/dL Troponin I 0.015 (0.000-0.034) ng/mL NT-Pro-B Natriuret Pep 345 (0-900) pg/mL 07/05/19 Range/Units 13:45 WBC 8.2 (4.0-10.5) K/mm3 RBC 4.46 (4.1-5.6) M/mm3 Hgb 13.1 (12.5-18.0) gm/dl Hct 38.8 L (42-50) % MCV 87.0 (78-100) fl MCH 29.4 (26-32) pg MCHC 33.8 (32-36) g/dl RDW 14.0 (11.5-14.0) % Plt Count 366 (150-450) K/mm3 MPV 10.2 (7.5-11.0) fl Absolute Granulocytes 6.16 (1.4-6.9) Segmented Neutrophils 75 H (36.-66.) % Lymphocytes (Manual) 18 L (24-44) % Monocytes (Manual) 5 (0.0-12.0) % Eosinophils (Manual) 1 (0.00-3.0) % Basophils (Manual) 1 (0.0-1.0) % Platelet Estimate NORMAL (NORMAL) RBC Morphology NORMAL Sodium (137-145) mmol/L Potassium (3.5-5.1) mmol/L Chloride (98-107) mmol/L Carbon Dioxide (22-30) mmol/L Anion Gap (5-15) MEQ/L BUN (9-20) mg/dL Creatinine (0.66-1.25) mg/dL Estimated GFR ML/MIN Glucose (74-106) mg/dL Lactic Acid (0.4-2.0) Calcium (8.4-10.2) mg/dL Troponin I (0.000-0.034) ng/mL NT-Pro-B Natriuret Pep (0-900) pg/mL - Progress Progress: improved, re-examined Air Movement: good Progress Note: 07/05/19 14:43 Chest x-ray reveals a subtle opacity in the right base of his lung. I reviewed the patient history, condition, chest x-ray, laboratory results with Dr. Gómez. We will admit the patient and replace potassium, provide the patient with intravenous antibiotics and respiratory support. Blood Culture(s) Obtained: No Antibiotics given: Yes Discussed with : Daniel Counseled pt/family regarding: lab results, diagnosis, rad results - Departure Departure Disposition: In-patient Admission Clinical Impression: Shortness of breath, Right lower lobe pulmonary infiltrate, Hypokalemia, COVID- 19 virus infection Condition: Stable Critical Care Time: No Referrals: VON GÓMEZ MD [Primary Care Provider] -
[2019-07-05 13:56] LABS: Hematocrit 38.8 % (42-50); Hemoglobin 13.1 gm/dl (12.5-18.0); Mean Corpuscular Hemoglobin 29.4 pg (26-32); Mean Corpuscular Hgb Concent. 33.8 g/dl (32-36); Mean Platelet Volume 10.2 fl (7.5-11.0); Platelet Count 366 K/mm3 (150-450); Red Blood Count 4.46 M/mm3 (4.1-5.6); White Blood Count 8.2 K/mm3 (4.0-10.5)
--- NOTE | 2019-07-05 14:01 | XRAY ---
Indication: Cough. Positive COVID 19. Comparison: June 30, 2019. Portable chest now demonstrates subtle left base airspace opacity without consolidation/large effusion. Remaining heart and lungs unremarkable again with CABG and cardiac valve replacement surgery.
[2019-07-05 14:16] LABS: ANION GAP 12.6 MEQ/L (5-15); Calcium 8.8 mg/dL (8.4-10.2); Creatinine 1 1.54 mg/dL (0.66-1.25)
[2019-07-05 14:19] LABS: Basophil 1 % (0.0-1.0); Eosinophil 1 % (0.00-3.0); Lymphocytes 18 % (24-44); Monocyte 5 % (0.0-12.0); Neutrophils 75 % (36.-66.); Platelet Estimate NORMAL (NORMAL); Total Cells Counted 100
[2019-07-05 14:20] LABS: Absolute Neutrophil Ct (ANC) 6.16 (1.4-6.9)
[2019-07-05 14:25] LABS: Potassium 2.9 mmol/L (3.5-5.1)
[2019-07-05] MEDS ORDERED: ROCEPHIN 1 Gm-D5w 50 ml Bag** 1 G/50 ML IVPB IV STA (14:45)
[2019-07-05] MEDS ORDERED: ROCEPHIN 1 Gm-D5w 50 ml Bag** 1 G/50 ML IVPB IV ONE (14:47)
[2019-07-05] MEDS ORDERED: Zofran 4 MG/2 ML VIAL IV PRN (15:10)
[2019-07-05] MEDS ORDERED: TYLENOL 325 MG PO PRN (15:10)
[2019-07-05] MEDS ORDERED: POTASSIUM CHLORIDE 20 mEq IN WATER 100ML 100 ML IV SCH (16:00)
[2019-07-05] MEDS: Zithromax 500 MG/ 250 ML NaCl Premix 500 MG/250 ML IVPB IV SCH (16:45)
[2019-07-05] MEDS: ENOXAPARIN SODIUM SQ SCH (17:36)
[2019-07-05] MEDS: Klor Con 10 MEQ PO SCH (17:36)
[2019-07-05] MEDS ORDERED: HUMALOG SQ PRN (18:41)
[2019-07-05] MEDS ORDERED: POTASSIUM CHLORIDE 20 mEq IN WATER 100ML 20 MEQ/100 ML BAG IV ONE (19:00)
[2019-07-05] MEDS: Coreg 6.25 MG PO SCH (20:45)
[2019-07-06 03:55] LABS: Glucose 106 mg/dL (74-106)
[2019-07-06 03:56] LABS: ANION GAP 11.4 MEQ/L (5-15); BLOOD UREA NITROGEN 28 mg/dL (9-20); CHLORIDE 104 mmol/L (98-107); Calcium 8.8 mg/dL (8.4-10.2); Carbon Dioxide 30 mmol/L (22-30); Creatinine 1 1.23 mg/dL (0.66-1.25); Potassium 3.6 mmol/L (3.5-5.1); SODIUM 142 mmol/L (137-145)
[2019-07-06 03:59] LABS: Hematocrit 36.5 % (42-50); Hemoglobin 12.2 gm/dl (12.5-18.0); Mean Cell Volume 87.5 fl (78-100); Mean Corpuscular Hemoglobin 29.3 pg (26-32); Mean Corpuscular Hgb Concent. 33.4 g/dl (32-36); Mean Platelet Volume 10.2 fl (7.5-11.0); Platelet Count 333 K/mm3 (150-450); Red Blood Count 4.17 M/mm3 (4.1-5.6); White Blood Count 6.8 K/mm3 (4.0-10.5)
[2019-07-06 05:55] LABS: Basophil 1 % (0.0-1.0); Eosinophil 3 % (0.00-3.0); Lymphocytes 16 % (24-44); Metamyelocyte 1 %; Monocyte 8 % (0.0-12.0); Neutrophils 71 % (36.-66.); Total Cells Counted 100
[2019-07-06 05:56] LABS: Ovalocytes 1+; Platelet Estimate NORMAL (NORMAL); Poikilocytosis 1+
[2019-07-06] MEDS: Klor Con 10 MEQ PO SCH (09:16)
[2019-07-06] MEDS: ENOXAPARIN SODIUM SQ SCH (09:17)
[2019-07-06] MEDS: Zithromax 500 MG/ 250 ML NaCl Premix 500 MG/250 ML IVPB IV SCH (09:17)
[2019-07-06] MEDS: Coreg 6.25 MG PO SCH (09:18)
[2019-07-06] MEDS ORDERED: ROCEPHIN 1 Gm-D5w 50 ml Bag** 1 G/50 ML IVPB IV SCH (10:00)
[2019-07-06] MEDS ORDERED: [UNRECOGNIZED DRUG - OTHER] PO SCH (10:00)
[2019-07-06] MEDS ORDERED: Cozaar 50 MG PO SCH (10:00)
[2019-07-06] MEDS ORDERED: ECOTRIN 81 MG PO SCH (10:00)
[2019-07-06] MEDS ORDERED: hydroDIURIL 25 MG PO SCH (10:00)
[2019-07-06] MEDS ORDERED: NON-FORMULARY ITEM (Simvastatin 40 Mg [Zocor 40 Mg] 40 MG) PO SCH (10:00)
[2019-07-06] MEDS ORDERED: ZOCOR 20MG PO SCH (10:00)
[2019-07-06] MEDS ORDERED: NORVASC 5 MG PO SCH (10:00)
[2019-07-06] MEDS ORDERED: LOSARTAN PO SCH (10:00)
[2019-07-06] MEDS ORDERED: Imdur 30 MG PO SCH (10:00)
[2019-07-06] MEDS ORDERED: HYDROCHLOROTHIAZIDE PO SCH (10:00)
--- NOTE | 2019-07-06 11:19 | PCM.SSS ---
History of Present Illness - Chief Complaint Chief Complaint: pulmonary infiltrate History of Present Illness: is a 68 year old male who was recently released from the hospital with a known covid-19 case, he became short of breath yesterday so returned to ER, his symptoms were transient and he is frustrated that he was admitted, he feels great today, requiring no oxygen, no fever, still has some cough but he was dressed in his own clothing in a chair waiting for me to round today and he insists he is going home today. - Review of Systems Constitutional: No Fever, No Chills Respiratory: Cough Cardiac: No Chest Pain, No Edema, No Syncope Abdominal/Gastrointestinal: No Abdominal Pain, No Nausea, No Vomiting, No Diarrhea Genitourinary Symptoms: No Dysuria Skin: No Rash Neurological: No Dizziness, No Focal Weakness, No Sensory Changes All Other Systems: Reviewed and Negative Medications & Allergies Home Medications: Home Medication List Aspirin [Baby Aspirin] 81 mg PO DAILY 06/30/12 [History Confirmed 07/05/19] Simvastatin 40 mg [Zocor 40 mg] 40 mg PO DAILY 06/05/13 [History Confirmed 07/04] Isosorbide Mononitrate 30 mg [Imdur 30 MG] 30 mg PO DAILY 09/22/17 [ History Confirmed 07/05/19] Losartan/Hydrochlorothiazide [Losartan-Hctz 100-25 mg Tab] 1 tablet PO DAILY 09/04 [History Confirmed 07/05/19] Metformin HCl [Metformin ER Osmotic] 500 mg PO BID 09/22/17 [History Confirmed 07/05/19] Pioglitazone HCl 15 mg PO DAILY 09/22/17 [History Confirmed 07/05/19] Amlodipine Besylate 5 mg PO DAILY 06/27/19 [History Confirmed 07/05/19] carvediloL [Carvedilol] 6.25 mg PO BID 06/27/19 [History Confirmed 07/05/19] Albuterol Sulfate [Proair Hfa] 2 puffs IH Q4-6HPRN PRN #2 [id number] 07/06/19 [ Rx] Azithromycin [Zithromax] 250 mg PO UD #6 tablet 07/06/19 [Rx] Allergies/Adverse Reactions: Allergies Allergy/AdvReac Type Severity Reaction Status Date / Time No Known Drug Allergies Allergy Verified 06/26/19 21:54 - Past Medical History Past Medical History: Yes Neurological History: No Pertinent History ENT History: No Pertinent History Cardiac History: High Cholesterol, Hypertension Respiratory History: Other Endocrine Medical History: Diabetes Type I Musculoskelatal History: No Pertinent History GI Medical History: No Pertinent History History: No Pertinent History Pyscho-Social History: No Pertinent History Male Reproductive Disorders: No Pertinent History Comment: COVID-19 - Past Surgical History Past Surgical History: Yes Neuro Surgical History: No Pertinent History Cardiac History: Valve Replacement GI Surgical History: No Pertinent History, Hernia Repair Genitourinary Surgical Hx: No Pertinent History Musculskeletal Surgical Hx: Orthopedic Surgery Male Surgical History: No Pertinent History Other Surgical History: 2009 back,disc with annel and screws placed - Social History Smoking Status: Never smoker Exposure to second hand smoke: No Alcohol: None Drug Use: none Significant Family History: no pertinent family hx - Physical Exam Vital Signs: Vital Signs - 24 hr Temp Pulse Resp BP Pulse Ox 07/06/19 10:00 98.2 F 72 18 137/90 95 07/06/19 07:54 98.7 F 73 18 152/77 96 07/06/19 07:49 96 07/06/19 06:00 98.0 F 70 15 140/83 95 07/06/19 04:52 98.4 F 58 L 20 138/78 95 07/06/19 03:00 64 16 131/68 97 07/06/19 02:00 59 L 19 91 L 07/05/19 23:43 98.5 F 63 19 131/68 95 07/05/19 21:28 98 07/05/19 19:37 97.7 F 72 23 138/72 98 07/05/19 17:21 97 07/05/19 16:44 97.5 F 64 16 113/65 07/05/19 14:32 98.9 F 71 22 127/66 98 07/05/19 13:52 98.9 F 70 24 109/54 92 L Oxygen-Last 24 hours Oxygen Flowrate (L/min)-RT 4 General Appearance: no apparent distress, alert Neurologic Exam: alert, oriented x 3, cooperative, normal mood/affect, nml cerebellar function, nml station & gait, sensation nml, No motor deficits Respiratory Exam: normal breath sounds, lungs clear, No respiratory distress Cardiovascular Exam: regular rate/rhythm, normal heart sounds, normal peripheral pulses Gastrointestinal/Abdomen Exam: soft, normal bowel sounds, No tenderness, No mass Results - Labs Lab/Micro Results: Accuchecks Date 07/06/19 Date 07/05/19 Time 07:37 Time 21:00 Accucheck Value: 106 Accucheck Value: 167 Lab Results-Last 24 Hours 07/05/19 07/05/19 07/05/19 Range/Units 13:45 13:45 13:45 WBC 8.2 (4.0-10.5) K/mm3 RBC 4.46 (4.1-5.6) M/mm3 Hgb 13.1 (12.5-18.0) gm/dl Hct 38.8 L (42-50) % MCV 87.0 (78-100) fl MCH 29.4 (26-32) pg MCHC 33.8 (32-36) g/dl RDW 14.0 (11.5-14.0) % Plt Count 366 (150-450) K/mm3 MPV 10.2 (7.5-11.0) fl Absolute Granulocytes 6.16 (1.4-6.9) Segmented Neutrophils 75 H (36.-66.) % Lymphocytes (Manual) 18 L (24-44) % Monocytes (Manual) 5 (0.0-12.0) % Eosinophils (Manual) 1 (0.00-3.0) % Basophils (Manual) 1 (0.0-1.0) % Metamyelocytes % Platelet Estimate NORMAL (NORMAL) RBC Morphology NORMAL Poikilocytosis Ovalocytes Sodium 141 (137-145) mmol/L Potassium 2.9 L* (3.5-5.1) mmol/L Chloride 102 (98-107) mmol/L Carbon Dioxide 29 (22-30) mmol/L Anion Gap 12.6 (5-15) MEQ/L BUN 33 H (9-20) mg/dL Creatinine 1.54 H (0.66-1.25) mg/dL Estimated GFR 48.0 ML/MIN Glucose 159 H (74-106) mg/dL Lactic Acid (0.4-2.0) Calcium 8.8 (8.4-10.2) mg/dL Troponin I 0.015 (0.000-0.034) ng/mL NT-Pro-B Natriuret Pep 345 (0-900) pg/mL 07/05/19 07/05/19 07/05/19 Range/Units 13:48 17:45 20:15 WBC (4.0-10.5) K/mm3 RBC (4.1-5.6) M/mm3 Hgb (12.5-18.0) gm/dl Hct (42-50) % MCV (78-100) fl MCH (26-32) pg MCHC (32-36) g/dl RDW (11.5-14.0) % Plt Count (150-450) K/mm3 MPV (7.5-11.0) fl Absolute Granulocytes (1.4-6.9) Segmented Neutrophils (36.-66.) % Lymphocytes (Manual) (24-44) % Monocytes (Manual) (0.0-12.0) % Eosinophils (Manual) (0.00-3.0) % Basophils (Manual) (0.0-1.0) % Metamyelocytes % Platelet Estimate (NORMAL) RBC Morphology Poikilocytosis Ovalocytes Sodium (137-145) mmol/L Potassium (3.5-5.1) mmol/L Chloride (98-107) mmol/L Carbon Dioxide (22-30) mmol/L Anion Gap (5-15) MEQ/L BUN (9-20) mg/dL Creatinine (0.66-1.25) mg/dL Estimated GFR ML/MIN Glucose (74-106) mg/dL Lactic Acid 1.2 (0.4-2.0) Calcium (8.4-10.2) mg/dL Troponin I 0.016 0.014 (0.000-0.034) ng/mL NT-Pro-B Natriuret Pep (0-900) pg/mL 07/05/19 07/05/19 07/06/19 Range/Units 23:25 23:25 03:10 WBC (4.0-10.5) K/mm3 RBC (4.1-5.6) M/mm3 Hgb (12.5-18.0) gm/dl Hct (42-50) % MCV (78-100) fl MCH (26-32) pg MCHC (32-36) g/dl RDW (11.5-14.0) % Plt Count (150-450) K/mm3 MPV (7.5-11.0) fl Absolute Granulocytes (1.4-6.9) Segmented Neutrophils (36.-66.) % Lymphocytes (Manual) (24-44) % Monocytes (Manual) (0.0-12.0) % Eosinophils (Manual) (0.00-3.0) % Basophils (Manual) (0.0-1.0) % Metamyelocytes % Platelet Estimate (NORMAL) RBC Morphology Poikilocytosis Ovalocytes Sodium (137-145) mmol/L Potassium 3.1 L (3.5-5.1) mmol/L Chloride (98-107) mmol/L Carbon Dioxide (22-30) mmol/L Anion Gap (5-15) MEQ/L BUN (9-20) mg/dL Creatinine (0.66-1.25) mg/dL Estimated GFR ML/MIN Glucose (74-106) mg/dL Lactic Acid (0.4-2.0) Calcium (8.4-10.2) mg/dL Troponin I 0.012 < 0.012 (0.000-0.034) ng/mL NT-Pro-B Natriuret Pep (0-900) pg/mL 07/06/19 07/06/19 Range/Units 03:10 03:10 WBC 6.8 (4.0-10.5) K/mm3 RBC 4.17 (4.1-5.6) M/mm3 Hgb 12.2 L (12.5-18.0) gm/dl Hct 36.5 L (42-50) % MCV 87.5 (78-100) fl MCH 29.3 (26-32) pg MCHC 33.4 (32-36) g/dl RDW 14.0 (11.5-14.0) % Plt Count 333 (150-450) K/mm3 MPV 10.2 (7.5-11.0) fl Absolute Granulocytes (1.4-6.9) Segmented Neutrophils 71 H (36.-66.) % Lymphocytes (Manual) 16 L (24-44) % Monocytes (Manual) 8 (0.0-12.0) % Eosinophils (Manual) 3 (0.00-3.0) % Basophils (Manual) 1 (0.0-1.0) % Metamyelocytes 1 % Platelet Estimate NORMAL (NORMAL) RBC Morphology ABNORMAL Poikilocytosis 1+ Ovalocytes 1+ Sodium 142 (137-145) mmol/L Potassium 3.6 (3.5-5.1) mmol/L Chloride 104 (98-107) mmol/L Carbon Dioxide 30 (22-30) mmol/L Anion Gap 11.4 (5-15) MEQ/L BUN 28 H (9-20) mg/dL Creatinine 1.23 (0.66-1.25) mg/dL Estimated GFR > 60.0 ML/MIN Glucose 106 (74-106) mg/dL Lactic Acid (0.4-2.0) Calcium 8.8 (8.4-10.2) mg/dL Troponin I (0.000-0.034) ng/mL NT-Pro-B Natriuret Pep (0-900) pg/mL Accuchecks Date 07/06/19 Date 07/05/19 Time 07:37 Time 21:00 Accucheck Value: 106 Accucheck Value: 167 - Radiology Impressions Radiology Exams & Impressions: Radiology Procedures Category Date Time Status CHEST 1 VIEW (PORTABLE) Routine Exams 07/05/19 13:42 Completed - Other Procedures and Tests Respiratory Therapy 07/05/19 15:10 Oxygen Nasal Cannula 4 lpm Assessment/Plan (1) COVID-19 virus infection Current Visit: Yes Status: Acute Code(s): U07.1 - COVID-19 (2) Left lower lobe pulmonary infiltrate Current Visit: Yes Status: Acute Assessment & Plan: appears viral, send home on zithromax for abx coverage and albuterol hfa Code(s): R91.8 - OTHER NONSPECIFIC ABNORMAL FINDING OF LUNG FIELD (3) Type 2 diabetes mellitus Current Visit: No Status: Acute (4) History of artificial heart valve Current Visit: No Status: Chronic Code(s): Z95.2 - PRESENCE OF PROSTHETIC HEART VALVE Hospital Summary - Vitals & Intake/Output Vital Signs: Vital Signs Temperature 98.2 F 07/06/19 10:00 Pulse Rate 72 07/06/19 10:00 Respiratory Rate 18 07/06/19 10:00 Blood Pressure 137/90 07/06/19 10:00 O2 Sat by Pulse Oximetry 95 07/06/19 10:00 Intake & Output: Intake & Output 07/03/19 07/04/19 07/05/19 07/06/19 11:59 11:59 11:59 11:59 Intake Total 1701 Output Total 1350 Balance 351 Weight 91.7 kg - Lab Result Diagrams: 07/06/19 03:10 07/06/19 03:10 Lab Results-Last 24 Hrs: Accuchecks Date 07/06/19 Date 07/05/19 Time 07:37 Time 21:00 Accucheck Value: 106 Accucheck Value: 167 Lab Results-Last 24 Hours 07/05/19 07/05/19 07/05/19 Range/Units 13:45 13:45 13:45 WBC 8.2 (4.0-10.5) K/mm3 RBC 4.46 (4.1-5.6) M/mm3 Hgb 13.1 (12.5-18.0) gm/dl Hct 38.8 L (42-50) % MCV 87.0 (78-100) fl MCH 29.4 (26-32) pg MCHC 33.8 (32-36) g/dl RDW 14.0 (11.5-14.0) % Plt Count 366 (150-450) K/mm3 MPV 10.2 (7.5-11.0) fl Absolute Granulocytes 6.16 (1.4-6.9) Segmented Neutrophils 75 H (36.-66.) % Lymphocytes (Manual) 18 L (24-44) % Monocytes (Manual) 5 (0.0-12.0) % Eosinophils (Manual) 1 (0.00-3.0) % Basophils (Manual) 1 (0.0-1.0) % Metamyelocytes % Platelet Estimate NORMAL (NORMAL) RBC Morphology NORMAL Poikilocytosis Ovalocytes Sodium 141 (137-145) mmol/L Potassium 2.9 L* (3.5-5.1) mmol/L Chloride 102 (98-107) mmol/L Carbon Dioxide 29 (22-30) mmol/L Anion Gap 12.6 (5-15) MEQ/L BUN 33 H (9-20) mg/dL Creatinine 1.54 H (0.66-1.25) mg/dL Estimated GFR 48.0 ML/MIN Glucose 159 H (74-106) mg/dL Lactic Acid (0.4-2.0) Calcium 8.8 (8.4-10.2) mg/dL Troponin I 0.015 (0.000-0.034) ng/mL NT-Pro-B Natriuret Pep 345 (0-900) pg/mL 07/05/19 07/05/19 07/05/19 Range/Units 13:48 17:45 20:15 WBC (4.0-10.5) K/mm3 RBC (4.1-5.6) M/mm3 Hgb (12.5-18.0) gm/dl Hct (42-50) % MCV (78-100) fl MCH (26-32) pg MCHC (32-36) g/dl RDW (11.5-14.0) % Plt Count (150-450) K/mm3 MPV (7.5-11.0) fl Absolute Granulocytes (1.4-6.9) Segmented Neutrophils (36.-66.) % Lymphocytes (Manual) (24-44) % Monocytes (Manual) (0.0-12.0) % Eosinophils (Manual) (0.00-3.0) % Basophils (Manual) (0.0-1.0) % Metamyelocytes % Platelet Estimate (NORMAL) RBC Morphology Poikilocytosis Ovalocytes Sodium (137-145) mmol/L Potassium (3.5-5.1) mmol/L Chloride (98-107) mmol/L Carbon Dioxide (22-30) mmol/L Anion Gap (5-15) MEQ/L BUN (9-20) mg/dL Creatinine (0.66-1.25) mg/dL Estimated GFR ML/MIN Glucose (74-106) mg/dL Lactic Acid 1.2 (0.4-2.0) Calcium (8.4-10.2) mg/dL Troponin I 0.016 0.014 (0.000-0.034) ng/mL NT-Pro-B Natriuret Pep (0-900) pg/mL 07/05/19 07/05/19 07/06/19 Range/Units 23:25 23:25 03:10 WBC (4.0-10.5) K/mm3 RBC (4.1-5.6) M/mm3 Hgb (12.5-18.0) gm/dl Hct (42-50) % MCV (78-100) fl MCH (26-32) pg MCHC (32-36) g/dl RDW (11.5-14.0) % Plt Count (150-450) K/mm3 MPV (7.5-11.0) fl Absolute Granulocytes (1.4-6.9) Segmented Neutrophils (36.-66.) % Lymphocytes (Manual) (24-44) % Monocytes (Manual) (0.0-12.0) % Eosinophils (Manual) (0.00-3.0) % Basophils (Manual) (0.0-1.0) % Metamyelocytes % Platelet Estimate (NORMAL) RBC Morphology Poikilocytosis Ovalocytes Sodium (137-145) mmol/L Potassium 3.1 L (3.5-5.1) mmol/L Chloride (98-107) mmol/L Carbon Dioxide (22-30) mmol/L Anion Gap (5-15) MEQ/L BUN (9-20) mg/dL Creatinine (0.66-1.25) mg/dL Estimated GFR ML/MIN Glucose (74-106) mg/dL Lactic Acid (0.4-2.0) Calcium (8.4-10.2) mg/dL Troponin I 0.012 < 0.012 (0.000-0.034) ng/mL NT-Pro-B Natriuret Pep (0-900) pg/mL 07/06/19 07/06/19 Range/Units 03:10 03:10 WBC 6.8 (4.0-10.5) K/mm3 RBC 4.17 (4.1-5.6) M/mm3 Hgb 12.2 L (12.5-18.0) gm/dl Hct 36.5 L (42-50) % MCV 87.5 (78-100) fl MCH 29.3 (26-32) pg MCHC 33.4 (32-36) g/dl RDW 14.0 (11.5-14.0) % Plt Count 333 (150-450) K/mm3 MPV 10.2 (7.5-11.0) fl Absolute Granulocytes (1.4-6.9) Segmented Neutrophils 71 H (36.-66.) % Lymphocytes (Manual) 16 L (24-44) % Monocytes (Manual) 8 (0.0-12.0) % Eosinophils (Manual) 3 (0.00-3.0) % Basophils (Manual) 1 (0.0-1.0) % Metamyelocytes 1 % Platelet Estimate NORMAL (NORMAL) RBC Morphology ABNORMAL Poikilocytosis 1+ Ovalocytes 1+ Sodium 142 (137-145) mmol/L Potassium 3.6 (3.5-5.1) mmol/L Chloride 104 (98-107) mmol/L Carbon Dioxide 30 (22-30) mmol/L Anion Gap 11.4 (5-15) MEQ/L BUN 28 H (9-20) mg/dL Creatinine 1.23 (0.66-1.25) mg/dL Estimated GFR > 60.0 ML/MIN Glucose 106 (74-106) mg/dL Lactic Acid (0.4-2.0) Calcium 8.8 (8.4-10.2) mg/dL Troponin I (0.000-0.034) ng/mL NT-Pro-B Natriuret Pep (0-900) pg/mL Micro Results-Entire Visit: Accuchecks Date 07/06/19 Date 07/05/19 Time 07:37 Time 21:00 Accucheck Value: 106 Accucheck Value: 167 - Radiology Exams Ordered Rad Exams-Entire Visit: Radiology Procedures Category Date Time Status CHEST 1 VIEW (PORTABLE) Routine Exams 07/05/19 13:42 Completed - Procedures and Test Procedures and Tests throughout Hospitalization: Therapy Orders & Screens 07/05/19 15:10 Oxygen Nasal Cannula 4 lpm Comment: - Discharge Disposition: Home, Self-Care Condition: Stable Prescriptions: New Azithromycin [Zithromax] 250 mg PO UD #6 tablet Albuterol Sulfate [Proair Hfa] 2 puffs IH Q4-6HPRN PRN #2 [email or web address] PRN Reason: Shortness Of Breath Continue Aspirin [Baby Aspirin] 81 mg PO DAILY Simvastatin 40 mg [Zocor 40 mg] 40 mg PO DAILY Isosorbide Mononitrate 30 mg [Imdur 30 MG] 30 mg PO DAILY Losartan/Hydrochlorothiazide [Losartan-Hctz 100-25 mg Tab] 1 tablet PO DAILY Pioglitazone HCl 15 mg PO DAILY Metformin HCl [Metformin ER Osmotic] 500 mg PO BID Amlodipine Besylate 5 mg PO DAILY carvediloL [Carvedilol] 6.25 mg PO BID Instructions: Coronavirus Disease 2019 (COVID-19) (DC) Additional Instructions: PLEASE HAVE PATIENT TO CALL OFFICE ON Monday07/08/2019 TO GET A FOLLOW UP APPT.
[2019-07-06 12:17] VITALS: BP 125/72; PULSE 73; O2SAT 94
== END 2019-07-06 12:10 | disposition home or self-care (01) | DRG 179 ==
LOC: ED 13:40 → MED SURG 15:03
PROVIDERS: ADMIT Family Medicine; ATTEND Family Medicine
DX: U07.1 COVID-19 (principal); R91.8 Other nonspecific abnormal finding of lung field; R06.02 Shortness of breath; E11.9 Type 2 diabetes mellitus without complications; I10 Essential (primary) hypertension; E78.00 Pure hypercholesterolemia, unspecified; Z79.899 Other long term (current) drug therapy; Z95.2 Presence of prosthetic heart valve
CPT/HCPCS: 36000; 36415; 71045; 80048; 82962; 83605; 83880; 84132; 84484; 85025; 93041; 94760; 94762; 96365; 99285; J0456; J0696; J1650; J3480; A9270-GY

== ENCOUNTER 2020-11-27 05:29 | Day surgery (SDC) | payer MEDICARE ==
[2020-11-27] MEDS ORDERED: Lactated Ringers 1,000 ML IV SCH (06:30)
[2020-11-27 06:46] VITALS: O2SAT 98
[2020-11-27] MEDS ORDERED: Lactated Ringers 1,000 ML IV ONE (06:52)
[2020-11-27] MEDS ORDERED: DIPRIVAN 200 MG/20 ML IV ONE ×2 (07:41→07:53)
[2020-11-27 09:02] VITALS: BP 145/77; PULSE 78
--- NOTE | 2020-11-27 11:28 | OP ---
SURGERY DATE/TIME: 11/27/2020 0749 PREOPERATIVE DIAGNOSES: 1) Anemia. 2) Dysphagia. POSTOPERATIVE DIAGNOSES: 1) Gastritis. 2) Duodenitis. 3) Normal colon. PROCEDURES: 1) Esophagogastroduodenoscopy. 2) Colonoscopy. SURGEON: Dr. Haji. ANESTHESIA: Medications were given by the anesthesia department. HISTORY: The patient is a 70 year old white male presenting to the endoscopy room for evaluation due to history of anemia. The patient is also reporting some dysphagia, points more to his upper chest area. The patient is felt to need to have endoscopic evaluation. It is noted that the patient was not off of aspirin as the city controller would not allow him to discontinue this medication. The patient was described the risks of the procedure including the risk of perforation, phlebitis, untoward reaction to medication, bleeding and missed lesions. The patient verbalized his understanding and desired to have the procedure performed. DESCRIPTION OF PROCEDURE: The patient was given the medications by the anesthesia department. He had continuous pulse oximetry, ECG monitoring, intermittent blood pressure monitoring and tidal CO2 monitoring during the examination. He was placed in the left lateral decubitus position. A bite block was placed and the flexible Olympus gastroscope was used to intubate the oropharynx. A view of the larynx was obtained and appeared to be normal. The scope easily introduced in the esophagus which appeared to be normal throughout its length. The stomach is entered where normal gastric rugal folds were seen. There was a general appearance of inflammation in the stomach consistent with NSAID-type gastropathy. The stomach was insufflated. The gastric mireles was suctioned dry and then re-insufflated again. The scope is passed along the greater curvature of the stomach to the antrum. The pylorus encountered and intubated. The duodenum inspected and found to be significant with the presence of what appeared to be some duodenitis. No active ulcerations or lesions however were noted. The scope is withdrawn towards the stomach. A retroflex view was obtained of the lesser curvature, fundus and cardia regions of the stomach and no additional findings were present. The scope was withdrawn from the patient. Next, a digital rectal examination performed and revealed normal anal sphincter tone, no masses and normal prostate. The flexible Olympus pediatric colonoscope was used to intubate the rectum. A view of the colon was developed sequentially to the cecum. Upon insertion and withdrawal, including a retroflex view in the rectum, no mucosal lesions were encountered. The scope was removed from the patient who tolerated the procedure well and was sent back to OP recovery in good condition. The prep was noted to be fair.
== END 2020-11-27 09:11 | disposition home or self-care (01) ==
LOC: SDC 05:29
PROVIDERS: ATTEND Family Medicine
DX: K29.70 Gastritis, unspecified, without bleeding (principal); D64.9 Anemia, unspecified; R13.10 Dysphagia, unspecified; K29.80 Duodenitis without bleeding; E11.9 Type 2 diabetes mellitus without complications; Z79.899 Other long term (current) drug therapy
CPT/HCPCS: 82947; 99100; J2704

== ENCOUNTER 2021-01-23 22:01 | Emergency (ER) | payer MEDICARE ==
[2021-01-23] MEDS ORDERED: BACIGUENT PACKET ONE (23:24)
[2021-01-23] MEDS ORDERED: BACIGUENT PACKET TP ONE (23:24)
--- NOTE | 2021-01-23 23:38 | ERPHSYRPT ---
- History of Present Illness Time Seen by Provider: 01/23/21 22:45 Source: patient Exam Limitations: no limitations Patient Subjective Stated Complaint: pt states Triage Nursing Assessment: . Physician History: Patient is a 70-year-old male who had been doing oxygen today and while he was carrying some of his purchases in the yard he tripped and fell he hit the right side of his head and suffered a small puncture wound to the glabella he also landed on his right index finger with a subsequent laceration x2. He complains of his head pain and he complains of his finger pain. He denies any other injury or pain at present. Occurred: just prior to arrival Reason for Fall: lost balance Injuries/Pain Location: head, upper extremity (Right index finger) Loss of Consciousness: no loss of consciousness Quality: throbbing Severity of Pain-Max: mild Severity of Pain-Current: mild Modifying Factors: Improves With: movement Associated Symptoms (Fall): extremity injury (Right index finger), headache Allergies/Adverse Reactions: No Known Drug Allergies Allergy (Verified 01/23/21 22:25) Home Medications: Aspirin [Baby Aspirin] 81 mg PO DAILY 06/30/12 [History] Isosorbide Mononitrate 30 mg [Imdur 30 MG] 30 mg PO DAILY 09/22/17 [History] Losartan/Hydrochlorothiazide [Losartan-Hctz 100-25 mg Tab] 1 tablet PO DAILY 09/22/17 [History] Metformin HCl [Metformin ER Osmotic] 500 mg PO BID 09/22/17 [History] Pioglitazone HCl 15 mg PO DAILY 09/22/17 [History] Amlodipine Besylate 5 mg PO DAILY 06/27/19 [History] carvediloL [Carvedilol] 6.25 mg PO BID 06/27/19 [History] Ascorbic Acid [Vitamin C] 500 mg PO BID 11/18/20 [History] Atorvastatin Calcium [Lipitor] 40 mg PO DAILY 11/18/20 [History] Cholecalciferol (Vitamin D3) [Vitamin D3] 5,000 unit PO BID 11/18/20 [History] Cyanocobalamin (Vitamin B-12) [Vitamin B12] 5,000 mcg PO BID 11/18/20 [History] Ferrous Sulfate [Iron] 325 mg PO BID 11/18/20 [History] Hx Tetanus, Diphtheria Vaccination/Date Given: Yes Hx Influenza Vaccination/Date Given: Yes Hx Pneumococcal Vaccination/Date Given: No Travel Risk - International Travel Have you traveled outside of the country in past 3 weeks: No - Coronavirus Screening Are you exhibiting any of the following symptoms?: No Close contact with a COVID-19 positive Pt in past 14-21 Days: No - Vaccine Status Have you recieved a Covid-19 vaccination: Yes Project Management Director: [employer] - Review of Systems Constitutional: No Fever, No Chills Eyes: No Symptoms Ears, Nose, & Throat: No Symptoms Respiratory: No Cough, No Dyspnea Cardiac: No Chest Pain, No Edema, No Syncope Abdominal/Gastrointestinal: No Abdominal Pain, No Nausea, No Vomiting, No Diarrhea Genitourinary Symptoms: No Dysuria Musculoskeletal: No Back Pain, No Neck Pain Skin: Other (Laceration x2 right index finger), No Rash Neurological: Headache, No Dizziness, No Focal Weakness, No Sensory Changes Psychological: No Symptoms Endocrine: No Symptoms All Other Systems: Reviewed and Negative - Past Medical History Pertinent Past Medical History: Yes Neurological History: No Pertinent History ENT History: No Pertinent History Cardiac History: High Cholesterol, Hypertension Respiratory History: Other Endocrine Medical History: Diabetes Type II Musculoskeletal History: No Pertinent History GI Medical History: No Pertinent History History: No Pertinent History Psycho-Social History: No Pertinent History Male Reproductive Disorders: No Pertinent History Other Medical History: COVID-19 2020 - Past Surgical History Past Surgical History: Yes Neuro Surgical History: No Pertinent History Cardiac: CABG, Cardiac Catheterization, Valve Replacement, Other Respiratory: No Pertinent History Gastrointestinal: No Pertinent History, Hernia Repair Genitourinary: No Pertinent History Musculoskeletal: Orthopedic Surgery Male Surgical History: No Pertinent History Other Surgical History: 2009 back-slipped disc with 2 annel and 6 screws placed, triple bypass - Social History Smoking Status: Never smoker Exposure to second hand smoke: No Alcohol Use: None Drug Use: none Patient Lives Alone: No Significant Family History: no pertinent family hx - Nursing Vital Signs Nursing Vital Signs: Initial Vital Signs Temperature 98.2 F 01/23/21 22:27 Pulse Rate 74 01/23/21 22:27 Respiratory Rate 18 01/23/21 22:27 Blood Pressure 183/94 01/23/21 22:27 O2 Sat by Pulse Oximetry 98 01/23/21 22:27 Pain Scale Pain Intensity 8 - Maude Coma Score Best Eye Response ([place]): (4) open spontaneously Best Verbal Response ([place]): (5) oriented Best Motor Response ([place]): (6) obeys commands [place] Total: 15 - Physical Exam General Appearance: mild distress Head Injury: contusions (Contusion and hematoma right temporal area small puncture type laceration to the glabella) Eye Exam: PERRL/EOMI, eyes nml inspection ENT Exam: airway nml, No evidence of ENT injury Neck Exam: normal inspection, No tenderness Respiratory/Chest Exam: normal breath sounds, No chest tenderness, No respiratory distress Cardiovascular Exam: normal heart sounds, regular rate/rhythm Gastrointestinal Exam: soft, normal bowel sounds, No tenderness Back Exam: normal inspection, normal range of motion Extremity Exam: lacerations (Lacerations x2 to the right index finger radial side of the distal portion of the finger shows a 2 cm laceration there is a 3 cm laceration over the volar surface of the distal phalanx.) Neurologic Exam: alert, oriented x 3, cooperative, sensation nml, No motor deficits Skin Exam: laceration SpO2 Interpretation: normal SpO2: 98 O2 Delivery: Room Air Procedures - Laceration/Wound Repair Right Finger Time of Procedure: 23:38 Wound Location: hand (Laceration x2 to the distal right index finger total length of the 2 lacerations is 5 cm) Wound Length (cm): 5 Wound's Depth, Shape: superficial Wound Explored: clean Irrigated: Yes Hibiclens Prep: Yes Anesthesia: 1% Lidocaine Volume Anesthetic (ccs): 3 Wound Debrided: minimal Suture Size/Type: 4-0, nylon Number of Sutures: 5 Layer Closure?: No Sterile Dressing Applied?: Yes Splint Applied?: No Sling Applied?: No - Course Nursing assessment & vital signs reviewed: Yes - CT Exams Head CT Interpretation: Tele-radiologist Report Ordered Tests: Active Orders 24 hr Category Date Time Status Wound Care STAT Care 01/23/21 23:27 Active HEAD WITHOUT CONTRAST [CT] Stat Exams 01/23/21 22:26 Taken Medication Summary Discontinued Medications Generic Name Dose Route Start Last Admin Trade Name Freq PRN Reason Stop Dose Admin Bacitracin Zinc Confirm 01/23/21 23:24 Bacitracin Packet 0.9 Gm Pckt Administered 01/23/21 23:25 Dose 1 gm .ROUTE .STK-MED ONE Bacitracin Zinc 0.9 gm 01/23/21 23:24 01/23/21 23:29 Bacitracin Packet 0.9 Gm Pckt TP 01/23/21 23:25 0.9 gm STAT ONE Administration - Progress Progress: improved - Departure Departure Disposition: Home Clinical Impression: Laceration of right index finger, Scalp hematoma, Fall with injury Condition: Good Critical Care Time: No Referrals: VINICIUS RODRIGUEZ [Primary Care Provider] - Follow up/PCP as directed Instructions: Surgical Wound (DC), Laceration Repair With Stitches (DC)
--- NOTE | 2021-01-24 08:22 | XRAY ---
Indication: Right temporal swelling and contusion following fall. Multiple contiguous axial images obtained through the head without contrast. Comparison: None Age-appropriate global atrophy and moderate periventricular degenerative micro-ischemia bilaterally. No acute intracranial hemorrhage, abnormal extra-axial fluid collection, or mass effect. Fourth ventricle is midline without hydrocephalus. Bony calvarium intact. Visualized paranasal sinuses and mastoid air cells are clear. Impression: Nonacute senile brain. Comment: Preliminary interpretation made by [facility]. No critical discrepancy.
== END 2021-01-23 23:59 | disposition home or self-care (01) ==
LOC: ED 22:01
DX: S61.210A Laceration without foreign body of right index finger without damage to nail, initial encounter (principal); S00.03XA Contusion of scalp, initial encounter; R51.9 Headache, unspecified; W18.30XA Fall on same level, unspecified, initial encounter; Y92.007 Garden or yard of unspecified non-institutional (private) residence as the place of occurrence of the external cause; Z86.16 Personal history of COVID-19; Z79.899 Other long term (current) drug therapy
CPT/HCPCS: 12002; 70450; 99283; A9270-GY

== ENCOUNTER 2021-03-09 09:12 | Emergency (ER) | payer MEDICARE ==
[2021-03-09] MEDS ORDERED: MORPHINE SULFATE 4 MG INJ ONE (10:06)
[2021-03-09] MEDS: MORPHINE SULFATE 4 MG INJ IM ONE (10:09)
--- NOTE | 2021-03-09 10:31 | ERPHSYRPT ---
- History of Present Illness Time Seen by Provider: 03/09/21 09:36 Source: patient Exam Limitations: no limitations Patient Subjective Stated Complaint: PT states "I have back pain and I went and saw blaze and she gave me pain pills but they are not helping much." Triage Nursing Assessment: PT presented alert and oriented X 3, skin pwd Pt ambulates with a slow gait, able to speak in clear full sentences pt has no swelling, no other complaint. Physician History: 70 years old male with history of coronary artery disease status post CABG, hypertension, hyperlipidemia, chronic back pain status post surgical repair long time ago presented in the ER with worsening low back pain for the last 5 after he picked up a heavy stuff at auction causing pain in the lower back, stumbled, left knee gave away and fell face forward. Since then he is having off-and-on worsening right low back pain with radiation to right lower extremity without any numbness tingling or weakness. Patient was seen outpatient, initially given Moosup 5 and then Moosup 10 but pain is not completely going away. More with ambulation and better with resting. No loss of bowel or bladder control. No perineal numbness. Patient is concerned about his hardware in the low back which might be displaced. Timing/Duration: week(s) (5), sudden, worse Method of Injury: fall Quality: sharp Back Pain Location: lumbar spine, paraspinous muscles Back Pain Radiation: upper legs, lower legs Severity of Pain-Max: severe Severity of Pain-Current: moderate Modifying Factors: Improves With: pain medication, rest. Worsens With: movement Associated Symptoms: lower back pain, muscle spasms, No numbness in legs/feet, No weakness, No sensory/motor loss Previous symptoms: same symptoms as today Allergies/Adverse Reactions: No Known Drug Allergies Allergy (Verified 01/23/21 22:25) Home Medications: Aspirin [Baby Aspirin] 81 mg PO DAILY 06/30/12 [History] Isosorbide Mononitrate 30 mg [Imdur 30 MG] 30 mg PO DAILY 09/22/17 [History] Losartan/Hydrochlorothiazide [Losartan-Hctz 100-25 mg Tab] 1 tablet PO DAILY 09/22/17 [History] Metformin HCl [Metformin ER Osmotic] 500 mg PO BID 09/22/17 [History] Pioglitazone HCl 15 mg PO DAILY 09/22/17 [History] Amlodipine Besylate 5 mg PO DAILY 06/27/19 [History] carvediloL [Carvedilol] 6.25 mg PO BID 06/27/19 [History] Ascorbic Acid [Vitamin C] 500 mg PO BID 11/18/20 [History] Atorvastatin Calcium [Lipitor] 40 mg PO DAILY 11/18/20 [History] Cholecalciferol (Vitamin D3) [Vitamin D3] 5,000 unit PO BID 11/18/20 [History] Cyanocobalamin (Vitamin B-12) [Vitamin B12] 5,000 mcg PO BID 11/18/20 [History] Ferrous Sulfate [Iron] 325 mg PO BID 11/18/20 [History] Hydrocodone/Acetaminophen [Hydrocodone-Acetamin 10-325 mg] 1 tab PO Q4-6HPRN PRN 03/09/21 [History] Hx Tetanus, Diphtheria Vaccination/Date Given: Yes Hx Influenza Vaccination/Date Given: Yes Hx Pneumococcal Vaccination/Date Given: No Immunizations Up to Date: Yes Travel Risk - International Travel Have you traveled outside of the country in past 3 weeks: No - Coronavirus Screening Are you exhibiting any of the following symptoms?: No Close contact with a COVID-19 positive Pt in past 14-21 Days: No - Vaccine Status Have you recieved a Covid-19 vaccination: Yes Senior Administrative Services Officer: [employer] Constitutional: No Symptoms Eyes: No Symptoms Respiratory: No Symptoms Cardiac: No Symptoms Abdominal/Gastrointestinal: No Symptoms Genitourinary Symptoms: No Symptoms Musculoskeletal: Arthralgias, Back Pain Skin: No Symptoms Neurological: No Symptoms Psychological: No Symptoms Endocrine: No Symptoms Hematologic/Lymphatic: No Symptoms - Past Medical History Pertinent Past Medical History: Yes Neurological History: No Pertinent History ENT History: No Pertinent History Cardiac History: High Cholesterol, Hypertension Respiratory History: Other Endocrine Medical History: Diabetes Type II Musculoskeletal History: No Pertinent History GI Medical History: No Pertinent History History: No Pertinent History Psycho-Social History: No Pertinent History Male Reproductive Disorders: No Pertinent History Other Medical History: COVID-19 2020 - Past Surgical History Past Surgical History: Yes Neuro Surgical History: No Pertinent History Cardiac: CABG, Cardiac Catheterization, Valve Replacement, Other Respiratory: No Pertinent History Gastrointestinal: No Pertinent History, Hernia Repair Genitourinary: No Pertinent History Musculoskeletal: Orthopedic Surgery Male Surgical History: No Pertinent History Other Surgical History: 2008 back-slipped disc with 2 annel and 6 screws placed, triple bypass - Social History Smoking Status: Never smoker Exposure to second hand smoke: No Alcohol Use: None Drug Use: none Patient Lives Alone: No Significant Family History: no pertinent family hx - Nursing Vital Signs Nursing Vital Signs: Initial Vital Signs Temperature 98.0 F 03/09/21 09:24 Pulse Rate 66 03/09/21 09:24 Respiratory Rate 18 03/09/21 09:24 Blood Pressure 166/94 03/09/21 09:24 O2 Sat by Pulse Oximetry 98 03/09/21 09:24 Pain Scale Pain Intensity [Lower Back] 9 Pain Intensity 7 - Physical Exam General Appearance: no apparent distress, alert Eye Exam: PERRL/EOMI Ears, Nose, Throat Exam: normal ENT inspection Neck Exam: normal inspection, supple, full range of motion Respiratory Exam: normal breath sounds, lungs clear Cardiovascular Exam: regular rate/rhythm, normal heart sounds Gastrointestinal Exam: soft, normal bowel sounds, No tenderness Back Exam: normal inspection, decreased range of motion, muscle spasm, point tenderness (Right sacroiliac area), other (Straight leg raising test positive at 60 degrees on right.), No vertebral tenderness Extremity Exam: normal inspection, normal range of motion, pelvis stable Neurologic Exam: alert, oriented x 3, cooperative, 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, normal mood/affect, nml cerebellar function, sensation nml, No motor deficits, No sensory deficit Skin Exam: normal color, warm SpO2 Interpretation: normal SpO2: 98 O2 Delivery: Room Air Ordered Tests: Active Orders 24 hr Category Date Time Status LUMBAR SPINE W/O [CT] Stat Exams 03/09/21 09:58 Taken Medication Summary Discontinued Medications Generic Name Dose Route Start Last Admin Trade Name Oswaldo PRN Reason Stop Dose Admin Morphine Sulfate 4 mg 03/09/21 09:57 03/09/21 10:09 Morphine Sulfate 4 Mg/Ml Injection IM 03/09/21 09:58 4 mg STAT ONE Administration Morphine Sulfate Confirm 03/09/21 10:06 Morphine Sulfate 4 Mg/Ml Injection Administered 03/09/21 10:07 Dose 4 mg .ROUTE .STK-MED ONE - Progress Progress: improved Progress Note: 03/09/21 he is given morphine for symptomatic relief. I have obtained CT lumbar spine which is negative for any acute findings. I believe patient has strained, will continue with Moosup 10 which is at home and will add low-dose Flexeril and outpatient follow-up recommended. Negative neuro exam in lower extremity. No obvious signs of cauda equina. Discussed signs symptoms of worsening needing return to ER which he seems understanding. Counseled pt/family regarding: diagnosis, need for follow-up, rad results - Departure Departure Disposition: Home Clinical Impression: Low back strain Qualifiers: Encounter type: initial encounter Qualified Code(s): S39.012A - Strain of muscle, fascia and tendon of lower back, initial encounter Condition: Stable Critical Care Time: No Referrals: VINICIUS RODRIGUEZ [Primary Care Provider] - Follow up/PCP as directed (In 2 days for reevaluation) ORTHO - BLAZE BARAHONA NP [NON-STAFF PHY W/O PRIVILEGES] - Follow up/PCP as directed (In 2 days for reevaluation) Instructions: Low Back Pain (DC), Sciatica (DC) Additional Instructions: Take pain medications and muscle relaxants as needed. Avoid exertional activities. Follow-up with primary care and Ortho for reevaluation. Return to ER for worsening low back pain or if having numbness tingling weakness of lower extremities/loss of bowel or bladder control. Prescriptions: Cyclobenzaprine HCl 10 mg [Flexeril 10 MG] 5 mg PO TID PRN #12 tablet PRN Reason: Pain
--- NOTE | 2021-03-09 10:34 | XRAY ---
Indication: Right back pain and right leg numbness. Lifting injury 4 days ago. Multiple contiguous axial images obtained through the lumbar spine. Sagittal and coronal reformatted images obtained. Comparison: February 15, 2018. Again intact bilateral L4-L5 posterior fusion hardware/intervertebral spacer produces extreme beam artifact limiting these levels. New minimal L3-S1 degenerative vacuum disc phenomena. Negative for large disc herniation or spinal canal stenosis. Sagittal and coronal reformatted images again demonstrates normal alignment with minimal L3-L5 disc space narrowing. Remaining vertebral body heights/disc spaces maintained. No acute compression fracture or subluxation. Visualized noncontrasted soft tissues again demonstrates moderate scattered aortoiliac calcifications and splenic calcified granulomas. Impression: 1. Again extreme beam artifact from L4-L5 posterior fusion hardware. 2. New L3-S1 degenerative vacuum disc phenomena. 3. Again scattered aortoiliac calcifications and splenic calcified granulomas. 4. Remaining CT lumbar spine without contrast exam is negative.
[2021-03-09 11:02] VITALS: BP 146/78; PULSE 60; O2SAT 95
== END 2021-03-09 11:13 | disposition home or self-care (01) ==
LOC: ED 09:12
DX: S39.012A Strain of muscle, fascia and tendon of lower back, initial encounter (principal); W01.0XXA Fall on same level from slipping, tripping and stumbling without subsequent striking against object, initial encounter; Z79.891 Long term (current) use of opiate analgesic; E11.8 Type 2 diabetes mellitus with unspecified complications; Z79.84 Long term (current) use of oral hypoglycemic drugs; E78.5 Hyperlipidemia, unspecified; I10 Essential (primary) hypertension; Z86.16 Personal history of COVID-19
CPT/HCPCS: 72131; 96372; 99284; J2270

== ENCOUNTER 2022-08-15 14:15 | Emergency (ER) | payer MEDICARE ==
[2022-08-15 15:07] VITALS: O2SAT 96
[2022-08-15] MEDS ORDERED: MORPHINE SULFATE 4 MG INJ IM ONE (15:28)
[2022-08-15] MEDS ORDERED: MORPHINE SULFATE 4 MG INJ ONE (15:35)
[2022-08-15 15:45] VITALS: BP 128/64; PULSE 64
--- NOTE | 2022-08-15 16:01 | ERPHSYRPT ---
- History of Present Illness Time Seen by Provider: 08/15/22 14:22 Historian: patient Exam Limitations: no limitations Patient Subjective Stated Complaint: Patient states he fell at home around 6pm yesterday evening. Patient states that he just became a bit off balance and fell. He denies hitting his head or losing conciousness. Patient states he hurt his left wrist and left ribs when he fell. Triage Nursing Assessment: Patient ambulated back to ER without difficulties. He is alert and oriented. No SOB. Patient in pain when he laughes. No bruising noted to left rib area but patient does have a small skin tear to his left wrist. Skin tear to wrist cleansed, skin replaced with steri strips, then covered with a bandaid. Radial pulse present and patient has normal ROM to left hand/wrist. Physician History: 71-year-old male with multiple medical problems including hypertension, hyperlipidemia, coronary artery disease, diabetes mellitus presented in the ER with chief complaint of left lower anterolateral rib cage pain Patient reports he was having pain both legs and slowly went down, hit his left ribs against blacktop and also left wrist. Did not hit his head, no loss of consciousness. Since then having dull aching to sharp pain mild to moderate and more with palpation/movement/laughing and better with being still. No difficulty breathing. Timing/Duration: yesterday, sudden Quality: sharpness Location: other Chest Pain Radiation: no radiation Severity of Pain-Max: moderate Severity of Pain-Current: moderate Modifying Factors: Worsens With: movement, change in position Associated Symptoms: denies symptoms Prior Chest Pain/Cardiac Workup: non-cardiac Nitro Today/Relief: no nitro taken today Aspirin Treatment Today: 81 mg x 1 Allergies/Adverse Reactions: No Known Drug Allergies Allergy (Verified 08/15/22 14:38) Home Medications: Aspirin [Baby Aspirin] 81 mg PO DAILY 06/30/12 [History] Isosorbide Mononitrate 30 mg [Imdur 30 MG] 30 mg PO DAILY 09/22/17 [History] Losartan/Hydrochlorothiazide [Losartan-Hctz 100-25 mg Tab] 1 tablet PO DAILY 09/22/17 [History] Metformin HCl [Metformin ER Osmotic] 500 mg PO BID 09/22/17 [History] Pioglitazone HCl 15 mg PO DAILY 09/22/17 [History] Amlodipine Besylate 5 mg PO DAILY 06/27/19 [History] carvediloL [Carvedilol] 6.25 mg PO BID 06/27/19 [History] Ascorbic Acid [Vitamin C] 500 mg PO BID 11/18/20 [History] Atorvastatin Calcium [Lipitor] 40 mg PO DAILY 11/18/20 [History] Cholecalciferol (Vitamin D3) [Vitamin D3] 5,000 unit PO BID 11/18/20 [History] Cyanocobalamin (Vitamin B-12) [Vitamin B12] 5,000 mcg PO BID 11/18/20 [History] Ferrous Sulfate [Iron] 325 mg PO BID 11/18/20 [History] Hydrocodone/Acetaminophen [Hydrocodone-Acetamin 10-325 mg] 1 tab PO Q4-6HPRN PRN 03/09/21 [History] Hx Tetanus, Diphtheria Vaccination/Date Given: Yes Hx Influenza Vaccination/Date Given: Yes Hx Pneumococcal Vaccination/Date Given: No Immunizations Up to Date: Yes Travel Risk - International Travel Have you traveled outside of the country in past 3 weeks: No - Coronavirus Screening Are you exhibiting any of the following symptoms?: No Close contact with a COVID-19 positive Pt in past 14-21 Days: No - Vaccine Status Have you recieved a Covid-19 vaccination: Yes [employer] Member: [employer] - Review of Systems Constitutional: No Symptoms Eyes: No Symptoms Ears, Nose, & Throat: No Symptoms Respiratory: No Symptoms Cardiac: Chest Pain Abdominal/Gastrointestinal: No Symptoms Genitourinary Symptoms: No Symptoms Musculoskeletal: Injury Skin: No Symptoms Neurological: No Symptoms Psychological: No Symptoms Endocrine: No Symptoms - Past Medical History Pertinent Past Medical History: Yes Neurological History: No Pertinent History ENT History: No Pertinent History Cardiac History: High Cholesterol, Hypertension Respiratory History: Other Endocrine Medical History: Diabetes Type II Musculoskeletal History: No Pertinent History GI Medical History: No Pertinent History History: No Pertinent History Psycho-Social History: No Pertinent History Male Reproductive Disorders: No Pertinent History Other Medical History: COVID-19 2020 - Past Surgical History Past Surgical History: Yes Neuro Surgical History: No Pertinent History Cardiac: CABG, Cardiac Catheterization, Valve Replacement, Other Respiratory: No Pertinent History Gastrointestinal: No Pertinent History, Hernia Repair Genitourinary: No Pertinent History Musculoskeletal: Orthopedic Surgery Male Surgical History: No Pertinent History Other Surgical History: 2009 back-slipped disc with 2 annel and 6 screws placed, triple bypass - Social History Smoking Status: Never smoker Exposure to second hand smoke: No Alcohol Use: None Drug Use: none Patient Lives Alone: No Significant Family History: no pertinent family hx - Nursing Vital Signs Nursing Vital Signs: Initial Vital Signs Temperature 97.7 F 08/15/22 14:15 Pulse Rate 70 08/15/22 14:15 Respiratory Rate 18 08/15/22 14:15 Blood Pressure 132/82 08/15/22 14:15 O2 Sat by Pulse Oximetry 97 08/15/22 14:15 Pain Scale Pain Intensity 8 - Physical Exam General Appearance: no apparent distress, alert Eye Exam: PERRL/EOMI Ears, Nose, Throat Exam: normal ENT inspection, pharynx normal Neck Exam: normal inspection, full range of motion Respiratory Exam: normal breath sounds, chest tenderness (Left lower anterolateral chest wall. No crepitus. No bruising/swelling.), lungs clear Cardiovascular Exam: regular rate/rhythm, normal heart sounds Back Exam: normal inspection Extremity Exam: normal range of motion, pelvis stable, other (Abrasion left wrist with intact range of motion. No bony tenderness.) Neurologic Exam: alert, oriented x 3, cooperative Skin Exam: normal color SpO2 Interpretation: normal SpO2: 96 O2 Delivery: Room Air Ordered Tests: Active Orders 24 hr Category Date Time Status CHEST 1 VIEW (PORTABLE) Stat Exams 08/15/22 15:47 Completed RIBS UNILATERAL Stat Exams 08/15/22 15:46 Completed Medication Summary Discontinued Medications Generic Name Dose Route Start Last Admin Trade Name Oswaldo PRN Reason Stop Dose Admin Morphine Sulfate 4 mg 08/15/22 15:28 08/15/22 15:36 Morphine Sulfate 4 Mg/Ml Injection IM 08/15/22 15:29 4 mg STAT ONE Administration Morphine Sulfate Confirm 08/15/22 15:35 Morphine Sulfate 4 Mg/Ml Injection Administered 08/15/22 15:36 Dose 4 mg .ROUTE .STK-MED ONE - Progress Progress: improved, re-examined Air Movement: good Progress Note: 08/15/22 15:59 71-year-old male with multiple medical problems including hypertension, hype rlipidemia, coronary artery disease, diabetes mellitus presented in the ER with chief complaint of left lower anterolateral rib cage pain Patient reports he was having pain both legs and slowly went down, hit his left ribs against blacktop and also left wrist. Did not hit his head, no loss of consciousness. Since then having dull aching to sharp pain mild to moderate and more with palpation/movement/laughing and better with being still. No difficulty breathing. Patient pain is clearly musculoskeletal, given morphine for symptomatic relief, on reevaluation feeling better. I have obtained x-rays chest and rib series with no acute findings for fracture, pneumothorax reviewed by me, official report is pending. Has no bony tenderness in the left wrist, do not think needs imaging. Patient is advised to take pain medication, deep breathing exercises and use cane/walker for ambulation to avoid another fall while being on pain medication. Discussed signs symptoms of worsening needing return to ER which she seems understanding. Pain does not seem cardiac in nature at all, do not think needs any other work-up and is stable for discharge. Up-to-date with tetanus. Blood Culture(s) Obtained: No Antibiotics given: No Counseled pt/family regarding: diagnosis, need for follow-up, rad results Medical Desision Making - Diagnostic Testing Diagnostic test were ordered, analyzed, and reviewed by me: Yes Radiological Interpretation: Interpreted by me, Reviewed by me - Risk of complications The pt has a mod risk of morbidity or mortality based on: Need for prescription drug management - Departure Departure Disposition: Home Clinical Impression: Chest wall contusion Condition: Stable Critical Care Time: No Referrals: VINICIUS RODRIGUEZ [Primary Care Provider] - Follow up with PCP 1 day Instructions: Rib Fracture (DC), Bruised Rib Additional Instructions: Do deep breathing exercises, Intermittent ice application, Take pain medications only as needed. Use cane/walker for ambulation while being on the pain medications to avoid another fall. Follow-up with primary care for reevaluation Return to ER for any worsening pain, difficulty breathing etc. Prescriptions: Hydrocodone/Acetaminophen [Hydrocodone-Acetamin 5-325 mg] 1 tab PO Q6HPRN PRN 3 Days #10 tablet MDD 4 PRN Reason: Pain
--- NOTE | 2022-08-15 18:59 | XRAY ---
Indication: Pain following fall. Comparison: July 05, 2019 Portable chest clear. Heart not enlarged again with cardiac valve replacement surgery. Bony thorax intact again with osteopenia and mild degenerative changes. Stable left breast mammotome clip. Impression: Nonacute chest with chronic features.
--- NOTE | 2022-08-15 19:01 | XRAY ---
Indication: Pain following fall. Comparison: None 2 view left ribs demonstrates osteopenia, mild acromioclavicular degenerative changes, cardiac valve replacement surgery, left breast mammotome clip, splenic calcified granulomas, and lower lumbar fusion hardware. No other bony, articular, or soft tissue abnormalities.
== END 2022-08-15 16:15 | disposition home or self-care (01) ==
LOC: ED 14:15
DX: S20.212A Contusion of left front wall of thorax, initial encounter (principal); W18.30XA Fall on same level, unspecified, initial encounter; M25.532 Pain in left wrist; E78.5 Hyperlipidemia, unspecified; I10 Essential (primary) hypertension; E11.9 Type 2 diabetes mellitus without complications; Z79.84 Long term (current) use of oral hypoglycemic drugs; Z79.891 Long term (current) use of opiate analgesic; Z79.899 Other long term (current) drug therapy; Z86.16 Personal history of COVID-19
CPT/HCPCS: 71045; 71100; 96372; 99283; J2270

== ENCOUNTER 2022-12-24 22:58 | Emergency (ER) | payer MEDICARE ==
[2022-12-24 23:14] VITALS: TEMP 98.8
[2022-12-24 23:16] VITALS: RESP 25; O2SAT 96
[2022-12-24] MEDS ORDERED: Rocephin 1000 MG INJ ONE (23:18)
[2022-12-24] MEDS ORDERED: XYLOCAINE 1% HCL 20 ML MDV ONE (23:20)
[2022-12-24] MEDS: Rocephin 1000 MG INJ IM ONE (23:21)
--- NOTE | 2022-12-24 23:24 | ERPHSYRPT ---
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 He took ibuprofen but it did not help him so he came to the emergency room. He denies any other symptoms including fever chills nausea vomiting diarrhea constipation. Timing/Duration: today Associated Symptoms: denies symptoms Allergies/Adverse Reactions: No Known Drug Allergies Allergy (Verified 12/24/22 23:02) Home Medications: Aspirin [Baby Aspirin] 81 mg PO DAILY 06/30/12 [History] Isosorbide Mononitrate 30 mg [Imdur 30 MG] 30 mg PO DAILY 09/22/17 [History] Losartan/Hydrochlorothiazide [Losartan-Hctz 100-25 mg Tab] 1 tablet PO DAILY 09/22/17 [History] Metformin HCl [Metformin ER Osmotic] 500 mg PO BID 09/22/17 [History] Pioglitazone HCl 15 mg PO DAILY 09/22/17 [History] Amlodipine Besylate 5 mg PO DAILY 06/27/19 [History] carvediloL [Carvedilol] 6.25 mg PO BID 06/27/19 [History] Ascorbic Acid [Vitamin C] 500 mg PO BID 11/18/20 [History] Atorvastatin Calcium [Lipitor] 40 mg PO DAILY 11/18/20 [History] Cholecalciferol (Vitamin D3) [Vitamin D3] 5,000 unit PO BID 11/18/20 [History] Cyanocobalamin (Vitamin B-12) [Vitamin B12] 5,000 mcg PO BID 11/18/20 [History] Ferrous Sulfate [Iron] 325 mg PO BID 11/18/20 [History] Hydrocodone/Acetaminophen [Hydrocodone-Acetamin 10-325 mg] 1 tab PO Q4-6HPRN PRN 03/09/21 [History] Hx Tetanus, Diphtheria Vaccination/Date Given: Yes Hx Influenza Vaccination/Date Given: Yes Hx Pneumococcal Vaccination/Date Given: No Travel Risk - International Travel Have you traveled outside of the country in past 3 weeks: No - Coronavirus Screening Close contact with a COVID-19 positive Pt in past 14-21 Days: No - Vaccine Status Have you recieved a Covid-19 vaccination: Yes Technology Internship: Unknown - Vaccination Dates Dates if Unknown: unknown - Review of Systems Constitutional: Weakness, No Fever, No Chills Eyes: No Symptoms Ears, Nose, & Throat: No Symptoms, Loose Teeth Respiratory: No Cough, No Dyspnea Cardiac: No Chest Pain, No Edema, No Syncope Abdominal/Gastrointestinal: No Abdominal Pain, No Nausea, No Vomiting, No Diarrhea Genitourinary Symptoms: No Dysuria Musculoskeletal: No Back Pain, No Neck Pain Skin: No Rash Neurological: No Dizziness, No Focal Weakness, No Sensory Changes Psychological: No Symptoms Endocrine: No Symptoms All Other Systems: Reviewed and Negative - Past Medical History Pertinent Past Medical History: Yes Neurological History: No Pertinent History ENT History: No Pertinent History Cardiac History: High Cholesterol, Hypertension Respiratory History: Other Endocrine Medical History: Diabetes Type II Musculoskeletal History: No Pertinent History GI Medical History: No Pertinent History History: No Pertinent History Psycho-Social History: No Pertinent History Male Reproductive Disorders: No Pertinent History Other Medical History: COVID-19 2020 - Past Surgical History Past Surgical History: Yes Neuro Surgical History: No Pertinent History Cardiac: CABG, Cardiac Catheterization, Valve Replacement, Other Respiratory: No Pertinent History Gastrointestinal: No Pertinent History, Hernia Repair Genitourinary: No Pertinent History Musculoskeletal: Orthopedic Surgery Male Surgical History: No Pertinent History Other Surgical History: 2009 back-slipped disc with 2 annel and 6 screws placed, triple bypass - Social History Smoking Status: Never smoker Exposure to second hand smoke: No Alcohol Use: None Drug Use: none Patient Lives Alone: No Significant Family History: no pertinent family hx - Nursing Vital Signs Nursing Vital Signs: Initial Vital Signs Temperature 98.8 F 12/24/22 23:02 Pulse Rate 90 12/24/22 23:02 Respiratory Rate 16 12/24/22 23:02 Blood Pressure 158/82 12/24/22 23:02 O2 Sat by Pulse Oximetry 95 12/24/22 23:02 Pain Scale Pain Intensity 8 - Physical Exam General Appearance: no apparent distress, alert Eye Exam: PERRL/EOMI, eyes nml inspection Ears, Nose, Throat Exam: normal ENT inspection, TMs normal, pharynx normal, moist mucous membranes, other (dental abscess) Neck Exam: normal inspection, non-tender, supple, full range of motion Respiratory Exam: normal breath sounds, lungs clear, No respiratory distress Cardiovascular Exam: regular rate/rhythm, normal heart sounds, normal peripheral pulses Gastrointestinal/Abdomen Exam: soft, normal bowel sounds, No tenderness, No mass Back Exam: normal inspection, normal range of motion, No CVA tenderness, No vertebral tenderness Extremity Exam: normal inspection, normal range of motion, pelvis stable Neurologic Exam: alert, oriented x 3, cooperative, normal mood/affect, nml cerebellar function, nml station & gait, sensation nml, No motor deficits Skin Exam: normal color, warm, dry, No rash Lymphatic Exam: No adenopathy SpO2: 96 - Course Nursing assessment & vital signs reviewed: Yes Ordered Tests: Medication Summary Discontinued Medications Generic Name Dose Route Start Last Admin Trade Name Freq PRN Reason Stop Dose Admin Ceftriaxone Sodium 1,000 mg 12/24/22 23:17 12/24/22 23:21 Ceftriaxone Sodium 1000 Mg Inj Vial IM 12/24/22 23:18 1,000 mg STAT ONE Administration Ceftriaxone Sodium Confirm 12/24/22 23:18 Ceftriaxone Sodium 1000 Mg Inj Vial Administered 12/24/22 23:19 Dose 1,000 mg .ROUTE .STK-MED ONE Lidocaine HCl Confirm 12/24/22 23:20 Lidocaine Hcl 1% 20 Ml Mdv 20 Ml Ml Administered 12/24/22 23:21 Dose 3 ml .ROUTE .STK-MED ONE - Progress Progress: improved Counseled pt/family regarding: diagnosis, need for follow-up - Departure Departure Disposition: Home Clinical Impression: Generalized weakness, Dental abscess Condition: Stable Critical Care Time: No Referrals: VINICIUS RODRIGUEZ [Primary Care Provider] - Follow up/PCP as directed Instructions: Dental Pain (DC), Tooth Abscess ED Additional Instructions: Discharge/Care Plan ANNAMARIE ZALDIVAR was seen on 12/24/22 in the Emergency Room. The patient was counseled regarding Diagnosis,Lab results, Imaging studies, need for follow up and when to return to the Emergency Room. Prescriptions given: Discharge Note I have spoken with the patient and/or caregivers. I have explained the patient's condition, diagnosis and treatment plan based on the information available to me at this time. I have answered the patient's and/or caregiver's questions and addressed any concerns. The patient and/or caregivers have as good understanding of the patient's diagnosis, condition and treatment plan as can be expected at this point. The vital signs have been stable. The patient's condition is stable and appropriate for discharge from the emergency department. The patient will pursue further outpatient evaluation with the primary care physician or other designated or consulting physician as outlined in the discharge instructions. The patient and/or caregivers are agreeable to this plan of care and follow-up instructions have been explained in detail. The patient and/or caregivers have received these instruction. The patient/and or caregivers are aware that any significant change in condition or worsening of symptoms should prompt an immediate return to this or the closest emergency department or call 911. ZENANNAMARIE RANDOLPH was seen on 12/24/22 n the Emergency Room. At that time you were treated for an emergent condition, during your visit Laboratory, Radiology and/or other procedures may have been ordered. It is very important that you follow-up with your Primary Care Physician VINICIUS RODRIGUEZ within the next 24-48 hours to review your Emergency Room visit and the final results of testing that was ordered. Some test results such as Urine Cultures, Blood Cultures, and other cultures if ordered will not be finalized for 24-48 hours. If you do not have a Primary Care Provider please call the medical records department at [phone] ext [phone] to obtain a copy of your results or you may sign into our patient portal to obtain these results by visiting us @ [email or web address] and completing the following steps: 1. Click on the Patient Portal link 2. Click the Patient Self Enrollment Link to complete the enrollment form and entering your 3. Once the enrollment form is completed you will receive an email with a temporary ID and password at the email address you provided. 4. Next choose a user name and password. Your user name must be at least 4 characters long and your password must be at least 4 characters long. 5. Choose a security question from the list and provide your answer to the qu estion. If you already have signed into the Health Portal you may access your Health Care Information 10/10 by the following steps: 1. Login to our website @ [email or web address] 2. Enter your original user name and password. FAQS The [facility] Health Portal is an online tool that contains your Lab Results, Radiology Reports, Visit History, Discharge Instructions and Health Summary Lab and Radiology Results will not be available for 72 hours on the portal. The Portal is a secure site, passwords are encryted and URLs are re-written so they cannot be copied and pasted. You and authorized family members are the only ones who can access your Portal. Also there is a timeout feature that protects your information if you leave the Portal page open. If you have technical difficulty please use the Contact Us link on the page this will allow you to submit any questions you have regarding the Portal or you may contact the Medical Record Department at [phone] ext [phone]. Prescriptions: Cephalexin Mh 500 mg [Keflex 500 mg] 500 mg PO Q6H #40 cap
[2022-12-24 23:47] VITALS: BP 150/77; PULSE 96
== END 2022-12-24 23:47 | disposition home or self-care (01) ==
LOC: ED 22:58
DX: R53.1 Weakness (principal); K04.7 Periapical abscess without sinus; K08.89 Other specified disorders of teeth and supporting structures; E78.5 Hyperlipidemia, unspecified; I10 Essential (primary) hypertension; E11.9 Type 2 diabetes mellitus without complications; Z79.84 Long term (current) use of oral hypoglycemic drugs; Z79.899 Other long term (current) drug therapy; Z86.16 Personal history of COVID-19
CPT/HCPCS: 96372; 99283; J0696

== ENCOUNTER 2024-05-06 23:05 | Observation (INO) | payer MEDICARE ==
--- NOTE | 2024-05-06 23:09 | ERPHSYRPT ---
- History of Present Illness Time Seen by Provider: 05/06/24 23:09 Source: patient, family Exam Limitations: no limitations Physician History: This is a 73-year-old white male patient of Dr. Haji who arrives by private vehicle accompanied by his family secondary to sudden onset of hematuria after a fall today at the home. Approximately 10 days ago patient underwent a left inguinal hernia repair. Postoperatively, he had a prolonged hospital stay because of urinary retention and a Dyer catheter was placed. After being discharged to home, he was staying with various family members in the last 5 days. Tonight, he was at his son's home being cared for by his granddaughter and [id number] when he fell and suddenly had hematuria. Patient denies chest pain. Patient denies shortness of breath. Patient denies abdominal pain. Patient has a history of hyperlipidemia, hypertension, diabetes, coronary disease having had a CABG in the past. Patient's [id number] is concerned that this patient is having increasing weakness and does not have a support system at home. She feels he needs placement in the hospital to start physical therapy, and have discharge planning evaluate him for home health/extended care facility to get stronger so that he can function well at home. Timing/Duration: today Activites at Onset: none Quality: aching Severity of Pain-Max: mild Severity of Pain-Current: mild Associated Symptoms: other (This) Sexual intercourse history: non-contributory Allergies/Adverse Reactions: No Known Drug Allergies Allergy (Verified 05/06/24 23:19) Home Medications: Aspirin [Baby Aspirin] 81 mg PO DAILY 06/30/12 [History] Isosorbide Mononitrate 30 mg [Imdur 30 MG] 30 mg PO DAILY 09/22/17 [Histor y] Metformin HCl [Metformin ER Osmotic] 500 mg PO BID 09/22/17 [History] Pioglitazone HCl 15 mg PO DAILY 09/22/17 [History] carvediloL [Carvedilol] 6.25 mg PO BID 06/27/19 [History] Ascorbic Acid [Vitamin C] 500 mg PO BID 11/18/20 [History] Cholecalciferol (Vitamin D3) [Vitamin D3] 5,000 unit PO BID 11/18/20 [History] Cyanocobalamin (Vitamin B-12) [Vitamin B12] 5,000 mcg PO BID 11/18/20 [History] Ferrous Sulfate [Iron] 325 mg PO BID 11/18/20 [History] Atorvastatin Calcium 10 mg PO DAILY 05/07/24 [History] Empagliflozin [Jardiance] 25 mg PO DAILY 05/07/24 [History] Ezetimibe 10 mg [Zetia 10 MG] 10 mg PO DAILY 05/07/24 [History] Hx Tetanus, Diphtheria Vaccination/Date Given: Yes Hx Influenza Vaccination/Date Given: Yes Hx Pneumococcal Vaccination/Date Given: No Travel Risk - International Travel Have you traveled outside of the country in past 3 weeks: No - Emerging Infectious Disease Are you exhibiting symptoms associated with any current EIDs: No - Past Medical History Pertinent Past Medical History: Yes Neurological History: No Pertinent History ENT History: No Pertinent History Cardiac History: High Cholesterol, Hypertension Respiratory History: Other Endocrine Medical History: Diabetes Type II Musculoskeletal History: No Pertinent History GI Medical History: No Pertinent History History: No Pertinent History Psycho-Social History: No Pertinent History Male Reproductive Disorders: No Pertinent History Other Medical History: COVID-19 2019 - Past Surgical History Past Surgical History: Yes Neuro Surgical History: No Pertinent History Cardiac: CABG, Cardiac Catheterization, Valve Replacement, Other Respiratory: No Pertinent History Gastrointestinal: No Pertinent History, Hernia Repair Genitourinary: No Pertinent History Musculoskeletal: Orthopedic Surgery Male Surgical History: No Pertinent History Other Surgical History: 2009 back-slipped disc with 2 annel and 6 screws placed, triple bypass Significant Family History: no pertinent family hx - Social History Smoking Status: Never smoker Exposure to second hand smoke: No Alcohol Use: None Drug Use: none Patient Lives Alone: No - Review of Systems Constitutional: Weakness Eyes: No Symptoms Ears, Nose, & Throat: No Symptoms Respiratory: No Symptoms Cardiac: No Symptoms Abdominal/Gastrointestinal: No Symptoms Genitourinary Symptoms: Hematuria, Other (Patient has postoperative Dyer catheter in place) Musculoskeletal: No Symptoms Skin: No Symptoms Neurological: No Symptoms Psychological: No Symptoms Endocrine: No Symptoms Hematologic/Lymphatic: No Symptoms Immunological/Allergic: No Symptoms All Other Systems: Reviewed and Negative - Nursing Vital Signs Nursing Vital Signs: Initial Vital Signs Temperature 98.8 F 05/06/24 23:19 Pulse Rate 100 H 05/06/24 23:19 Respiratory Rate 14 05/06/24 23:19 Blood Pressure 169/81 05/06/24 23:19 O2 Sat by Pulse Oximetry 97 05/06/24 23:19 Pain Scale Pain Intensity 0 - Physical Exam General Appearance: no apparent distress, alert, obese Eye Exam: PERRL/EOMI, eyes nml inspection Ears, Nose, Throat Exam: normal ENT inspection, moist mucous membranes Neck Exam: normal inspection, non-tender, supple, full range of motion Respiratory Exam: normal breath sounds, lungs clear, airway intact, No chest tenderness, No respiratory distress Cardiovascular Exam: regular rate/rhythm, normal heart sounds, normal peripheral pulses Gastrointestinal/Abdomen Exam: soft, normal bowel sounds, No tenderness Rectal Exam: not done Extremity Exam: normal inspection, normal range of motion, pelvis stable Neurologic Exam: alert, oriented x 3, cooperative, audiovisual production specialist II-XII nml as tested, sensation nml Skin Exam: normal color, warm, dry Lymphatic Exam: No adenopathy SpO2 Interpretation: normal O2 Delivery: Room Air - Course Nursing assessment & vital signs reviewed: Yes Ordered Tests: Active Orders 24 hr Category Date Time Status Bladder Irrigation STAT Care 05/06/24 23:22 Active Catheter-[place] Dyer STAT Care 05/06/24 23:22 Active IV Insertion STAT Care 05/06/24 23:22 Active ABDOMEN AND PELVIS W/0 CONTRAS [CT] Stat Exams 05/06/24 23:23 Completed CBC W DIFF Stat Lab 05/06/24 23:22 Completed CMP Stat Lab 05/06/24 23:22 Completed CULTURE,URINE Stat Lab 05/07/24 00:04 Received PT INR [PROTIME WITH INR] Stat Lab 05/06/24 23:24 Completed UA W/RFX UR CULTURE Stat Lab 05/07/24 00:04 Completed Medication Summary Generic Name Dose Route Start Last Admin Trade Name Freq PRN Reason Stop Dose Admin Ceftriaxone Sodium 1 gm in 100 mls @ 200 mls/hr 05/07/24 00:50 05/07/24 00:52 Rocephin 1 Gm / 100 Ml Nacl IV 05/07/24 01:19 200 mls/hr STAT ONE 200 mls/hr Administration Discontinued Medications Generic Name Dose Route Start Last Admin Trade Name Freq PRN Reason Stop Dose Admin Ceftriaxone Sodium Confirm 05/07/24 00:51 Rocephin 1 Gm / 100 Ml Nacl Administered 05/07/24 00:52 Dose 1 gm in 100 mls @ ud IV .STK-MED ONE Lab/Rad Data: Laboratory Result Diagrams 05/07/24 00:00 05/07/24 00:00 Laboratory Results 05/07/24 05/07/24 05/07/24 Range/Units 00:04 00:00 00:00 WBC (4.23-9.07) x10^3/uL RBC (4.63-6.08) x10^6/uL Hgb (13.7-17.5) g/dL Hct (40.1-51.0) % MCV (79.0-92.2) fL MCH (25.7-32.2) pg MCHC (32.3-36.5) g/dL RDW (11.6-14.4) % Plt Count (163-337) x10^3/uL MPV (9.4-12.4) fL Gran % (34.0-67.9) % Immature Gran % (Auto) (0.001-0.429) % Nucleat RBC Rel Count (0.00-0.2) % Eos # (Auto) (0.04-0.54) x10^3/uL Immature Gran # (Auto) (0.001-0.031) x10^3u/L Absolute Lymphs (auto) (1.32-3.57) x10^3/uL Absolute Monos (auto) (0.30-0.82) x10^3/uL Absolute Nucleated RBC (0.00-0.012) x10^3u/L Lymphocytes % (21.8-53.1) % Monocytes % (5.3-12.2) % Eosinophils % (0.8-7.0) % Basophils % (0.2-1.2) % Absolute Granulocytes (1.78-5.38) x10^3/uL Basophils # (0.01-0.08) x10^3/uL PT 10.3 (9.4-12.5) SECONDS INR 0.94 (0.8-3.0) Sodium 136 (135-145) mmol/L Potassium 4.5 (3.5-5.1) mmol/L Chloride 105 (98-107) mmol/L Carbon Dioxide 22 (22-30) mmol/L Anion Gap 14.0 (5-15) MEQ/L BUN 22 H (9-20) mg/dL Creatinine 0.77 (0.66-1.25) mg/dL Estimated GFR 94.5 ML/MIN Glucose 128 H (74-106) mg/dL Calcium 9.2 (8.4-10.2) mg/dL Total Bilirubin 0.60 (0.2-1.3) mg/dL AST 46 (17-59) U/L ALT 48 (0-50) U/L Alkaline Phosphatase 100 (38-126) U/L Serum Total Protein 6.1 L (6.3-8.2) g/dL Albumin 3.3 L (3.5-5.0) g/dL Urine Color Red A (Yellow) Urine Appearance Turbid A (Clear) Urine pH 5.0 (4.6-8.0) Ur Specific Ayden 1.015 (1.005-1.030) Urine Protein 300 A (Negative) Urine Glucose (UA) >=1000 A (Negative) mg/dL Urine Ketones Trace A (Negative) Urine Blood Large A (Negative) Urine Nitrite Positive A (Negative) Urine Bilirubin Negative (Negative) Urine Urobilinogen 0.2 (0.2) mg/dL Ur Leukocyte Esterase Large A (Negative) U Hyaline Cast (Auto) 3-5 A (0-2) /LPF Urine Microscopic RBC >100 A (0-5) /HPF Urine Microscopic WBC >100 A (0-5) /HPF Ur Epithelial Cells Rare (None Seen) /HPF Urine Bacteria Many A (None Seen) /HPF Urine Culture Reflexed YES (NO) 05/07/24 Range/Units 00:00 WBC 12.8 H (4.23-9.07) x10^3/uL RBC 3.62 L (4.63-6.08) x10^6/uL Hgb 10.7 L (13.7-17.5) g/dL Hct 32.8 L (40.1-51.0) % MCV 90.6 (79.0-92.2) fL MCH 29.6 (25.7-32.2) pg MCHC 32.6 (32.3-36.5) g/dL RDW 15.0 H (11.6-14.4) % Plt Count 370 H (163-337) x10^3/uL MPV 9.8 (9.4-12.4) fL Gran % 76.0 H (34.0-67.9) % Immature Gran % (Auto) 1.3 H (0.001-0.429) % Nucleat RBC Rel Count 0.0 (0.00-0.2) % Eos # (Auto) 0.35 (0.04-0.54) x10^3/uL Immature Gran # (Auto) 0.16 H (0.001-0.031) x10^3u/L Absolute Lymphs (auto) 1.56 (1.32-3.57) x10^3/uL Absolute Monos (auto) 0.93 H (0.30-0.82) x10^3/uL Absolute Nucleated RBC 0.00 (0.00-0.012) x10^3u/L Lymphocytes % 12.2 L (21.8-53.1) % Monocytes % 7.3 (5.3-12.2) % Eosinophils % 2.7 (0.8-7.0) % Basophils % 0.5 (0.2-1.2) % Absolute Granulocytes 9.70 H (1.78-5.38) x10^3/uL Basophils # 0.07 (0.01-0.08) x10^3/uL PT (9.4-12.5) SECONDS INR (0.8-3.0) Sodium (135-145) mmol/L Potassium (3.5-5.1) mmol/L Chloride (98-107) mmol/L Carbon Dioxide (22-30) mmol/L Anion Gap (5-15) MEQ/L BUN (9-20) mg/dL Creatinine (0.66-1.25) mg/dL Estimated GFR ML/MIN Glucose (74-106) mg/dL Calcium (8.4-10.2) mg/dL Total Bilirubin (0.2-1.3) mg/dL AST (17-59) U/L ALT (0-50) U/L Alkaline Phosphatase (38-126) U/L Serum Total Protein (6.3-8.2) g/dL Albumin (3.5-5.0) g/dL Urine Color (Yellow) Urine Appearance (Clear) Urine pH (4.6-8.0) Ur Specific Ayden (1.005-1.030) Urine Protein (Negative) Urine Glucose (UA) (Negative) mg/dL Urine Ketones (Negative) Urine Blood (Negative) Urine Nitrite (Negative) Urine Bilirubin (Negative) Urine Urobilinogen (0.2) mg/dL Ur Leukocyte Esterase (Negative) U Hyaline Cast (Auto) (0-2) /LPF Urine Microscopic RBC (0-5) /HPF Urine Microscopic WBC (0-5) /HPF Ur Epithelial Cells (None Seen) /HPF Urine Bacteria (None Seen) /HPF Urine Culture Reflexed (NO) - Progress Progress Note: 05/07/24 00:57 My medical decision making and the assignment of at least moderate complexity was based on review of the patient's past medical history, review of the patient's medication list, reviewed patient drug allergy list, history present illness and physical findings on examination. The workup in this patient includes placement of intravenous line, infusion of normal saline solution, CBC, CMP, PT/INR, urinalysis, CT scan of the abdomen pelvis without contrast. Differential diagnosis includes but is not limited to acute intra- abdominal/pelvic abnormality, urinary tract infection, dehydration, anemia 05/07/24 00:59 I interpreted the patient's laboratory data results. Based on the laboratory data results, the patient does have a urinary tract infection. CT scan of the abdomen pelvis without contrast shows bilateral perinephric stranding that may be associated with infectious etiology. There are postoperative changes in the left inguinal region consistent with his recent left inguinal hernia repair 05/07/24 01:07 I spoke with our telehospitalist, Dr. Deng, I reviewed the patient past medical history, presenting complaint, physical findings on examination and workup performed with results. We will place this patient in observation, provide intravenous fluids, intravenous antibiotics, discharge planning and physical therapy consultation Counseled pt/family regarding: lab results, diagnosis, rad results Medical Desision Making - Independent Historian Additional History obtained from: Family - Diagnostic Testing Diagnostic test were ordered, analyzed, and reviewed by me: Yes Radiological Interpretation: Reviewed by me, Teleradiologist Report - Risk of complications The pt has a high risk of morbidity or mortality based on: Decision regarding hospitilization or escalation of hosp level of care - Departure Departure Disposition: Observation Clinical Impression: Weakness, Hematuria, Urinary tract infection, Fall Condition: Fair Critical Care Time: No Referrals: VINICIUS HAJI [Primary Care Provider] - Follow up/PCP as directed
[2024-05-07 00:12] LABS: BASOPHIL % 0.5 % (0.2-1.2); Basophil (Absolute #) 0.07 x10^3/uL (0.01-0.08); Eosinophil % 2.7 % (0.8-7.0); Eosinophil (Absolute #) 0.35 x10^3/uL (0.04-0.54); Hematocrit 32.8 % (40.1-51.0); Hemoglobin 10.7 g/dL (13.7-17.5); IMMATURE GRAN # 0.16 x10^3u/L (0.001-0.031); IMMATURE GRAN % 1.3 % (0.001-0.429); Lymphocyte (Absolute #) 1.56 x10^3/uL (1.32-3.57); Lymphocytes % 12.2 % (21.8-53.1); Mean Cell Volume 90.6 fL (79.0-92.2); Mean Corpuscular Hemoglobin 29.6 pg (25.7-32.2); Mean Corpuscular Hgb Concent. 32.6 g/dL (32.3-36.5); Mean Platelet Volume 9.8 fL (9.4-12.4); Monocyte (Absolute #) 0.93 x10^3/uL (0.30-0.82); Monocytes % 7.3 % (5.3-12.2); Platelet Count 370 x10^3/uL (163-337); Red Blood Count 3.62 x10^6/uL (4.63-6.08); White Blood Count 12.8 x10^3/uL (4.23-9.07)
[2024-05-07 00:25] LABS: INR 0.94 (0.8-3.0); PROTIME 10.3 SECONDS (9.4-12.5)
[2024-05-07 00:26] LABS: ALBUMIN 3.3 g/dL (3.5-5.0); BILIRUBIN,TOTAL 0.6 mg/dL (0.2-1.3); Calcium 9.2 mg/dL (8.4-10.2); Creatinine 1 0.77 mg/dL (0.66-1.25); EST GLOMERULAR FILTRATION RATE 94.5 ML/MIN; Potassium 4.5 mmol/L (3.5-5.1); Total Protein 6.1 g/dL (6.3-8.2)
--- NOTE | 2024-05-07 00:39 | XRAY ---
CLINICAL HISTORY: Hematuria COMPARISON: none. TECHNIQUE: Non-contrast CT of the abdomen and pelvis was performed, with the following protocol: axial images, and reconstructed coronal and sagittal images. One of the following dose reduction techniques was utilized for this exam: Automated exposure control, adjustment of the mA and/or kV according to patient size, and use of iterative reconstruction. FINDINGS: Abdomen: Liver: Mildly enlrged in size, shape, and density. No focal lesions, cysts, or masses were identified. Gallbladder and Biliary System: The gallbladder is normal in size and shape. No wall thickening, pericholecystic fluid, or gallstones were identified. Pancreas: Pancreatic head and proximal body display fatty atrophic changes. The rest of the pancreatic parenchym appears normal in size and density. No pancreatic masses or calcifications were noted. Spleen: Bulky spleen with multiple small calcific foci/granulomas. Appendix: The appendix is normal in size without terry appendiceal fat stranding, and without an appendicolith. No evidence of appendiceal abscess or perforation. Kidneys and Adrenal Glands: Both kidneys are normal in size, shape, and position. Cortical thickness is within normal limits. No renal calculi or hydronephrosis. Multiple bilateral small renal parapelvic cysts Multiple right renal cortical cysts the largest at the lower pole measuring 57 mm Strandng of the perienphric fat planes bilaterally likely post inflammatory/infective sequel Adrenal glands are unremarkable. Abdominal Aorta and Vessels: The abdominal aorta and major branches display atherosclerosis changes. Pelvis: Urinary Bladder: is not distended with intravesical Dyer's catheter containing air likely post interventrional sequel. Apparent vesical mural thickening noted which could not be properly assessed Prostate: Normal in size and contour. No masses or abnormal thickening. Seminal Vesicles: Normal appearance without abnormal enlargement or mass. Peritoneal and Retroperitoneal Structures: Smudging of the peritoneal fat planes at both lower quadrants more on the left side. Air apeck identified in the left retroperitoneal space along the gerotas fascia anteriorly. The possibility of underlying omental infarction/infection cannot be excluded. The fat stranding on the left side is extending into the left inguinal canal and the left inguinal hernia which also contains omental fat and fluid. No free fluid or abnormal fluid collections were identified within the abdomen or pelvis. No lymphadenopathy was noted. Bowel: The visualized bowel loops are normal in caliber and appearance. No evidence of bowel obstruction or wall thickening. Bones and Soft Tissues: Lumbar spondylodegenerative changes with L4-L5 spinal fixation IMPRESSION: 1. Multiple bilateral small renal parapelvic cysts 2. Multiple right renal cortical cysts the largest at the lower pole measuring 57 mm 3. Strandng of the perienphric fat planes bilaterally likely post inflammatory/infective sequel 4. Smudging of the peritoneal fat planes at both lower quadrants more on the left side. Air apeck identified in the left retroperitoneal space along the gerotas fascia anteriorly. Appearances may be secondary to infective/inflammatory changes. The possibility of an underlying omental infarction cannot be excluded. 5. The fat stranding on the left side is extending into the left inguinal canal and the left inguinal hernia which also contains omental fat and fluid. Dedicated imaging/examination of the inguinal hernia is also advised. 6. Urinary Bladder is not distended with intravesical Dyer's catheter containing air likely post interventrional sequel. Apparent vesical mural thickening observed which could not be properly assessed. Further evaluation would be advised. 7. Mild hepatomegaly. 8. Bulky spleen with multiple small calcific foci/granulomas. [facility] ER was called at [phone] at 11:30 PM ICE CUTTER, 05/06/2024 and MATTIE Marcum was informed regarding the presence of significant medical findings in the report Electronically Signed by: Kishan Harding MD. (05/07/2024 00:34:00 EST)
[2024-05-07 00:42] LABS: Appearance Turbid (Clear); Bacteria Many /HPF (None Seen); Bilirubin Negative (Negative); Blood Large (Negative); Epithelial Cells Rare /HPF (None Seen); Glucose, Urine >=1000 mg/dL (Negative); Ketones Trace (Negative); Leukocyte Esterase Large (Negative); Nitrite Positive (Negative); Protein,Urine Dip 300 (Negative); RBC >100 /HPF (0-5); Specific Gravity 1.015 (1.005-1.030); Urobilinogen 0.2 mg/dL (0.2); WBC >100 /HPF (0-5)
[2024-05-07] MEDS ORDERED: ROCEPHIN 1 GM / 100 ML NaCl 1 GM/100 ML IVPB IV ONE (00:51)
[2024-05-07] MEDS: ROCEPHIN 1 GM / 100 ML NaCl 1 GM/100 ML IVPB IV ONE (00:52)
[2024-05-07] MEDS ORDERED: Zofran 4 MG/2 ML VIAL IV PRN (01:35)
[2024-05-07] MEDS ORDERED: TYLENOL 325 MG PO PRN (01:35)
[2024-05-07] MEDS ORDERED: HUMULIN R SQ PRN (01:35)
[2024-05-07] MEDS ORDERED: Sodium Chloride 0.9% 1000 ML 1,000 ML IV SCH (01:35)
[2024-05-07 04:24] LABS: Appearance Cloudy (Clear); Bacteria None Seen /HPF (None Seen); Bilirubin Negative (Negative); Blood Large (Negative); Epithelial Cells Few /HPF (None Seen); Glucose, Urine >=1000 mg/dL (Negative); Ketones 15 (Negative); Leukocyte Esterase Small (Negative); Nitrite Negative (Negative); Protein,Urine Dip 100 (Negative); RBC >100 /HPF (0-5); Urobilinogen 0.2 mg/dL (0.2); WBC 51-100 /HPF (0-5)
[2024-05-07 05:13] LABS: Hematocrit 31.8 % (40.1-51.0); Hemoglobin 10.4 g/dL (13.7-17.5); Mean Cell Volume 91.4 fL (79.0-92.2); Mean Corpuscular Hemoglobin 29.9 pg (25.7-32.2); Mean Corpuscular Hgb Concent. 32.7 g/dL (32.3-36.5); Mean Platelet Volume 9.7 fL (9.4-12.4); Platelet Count 347 x10^3/uL (163-337); Red Blood Count 3.48 x10^6/uL (4.63-6.08); Red Cell Distribution Width 15.2 % (11.6-14.4); White Blood Count 12.3 x10^3/uL (4.23-9.07)
[2024-05-07 05:27] LABS: ANION GAP 12.6 MEQ/L (5-15); Calcium 8.8 mg/dL (8.4-10.2); Creatinine 1 0.75 mg/dL (0.66-1.25); EST GLOMERULAR FILTRATION RATE 95.3 ML/MIN
--- NOTE | 2024-05-07 06:42 | PCM.HP ---
History of Present Illness - Chief Complaint Chief Complaint: generalized weakness, hematuria Date: 05/07/24 History of Present Illness: 73-year-old man with history of type 2 diabetes, hypertension, and CAD, who presents from home with hematuria. Patient underwent left inguinal hernia repair on 04/25, complicated by postoperative urinary retention requiring placement of an indwelling Dyer catheter. Patient was eventually discharged on 04/28, but he has been having severe generalized weakness, with inability to ambulate independently compared to his baseline. Initially was staying with his granddaughter, then recently moved to his son's for care. As he was getting out of the shower today, he fell and slipped to the floor, requiring multiple people to pick him up. He did not have any head trauma or any visible bruising. However, afterward, he had onset of gross hematuria. He did not recall any particular trauma to the Dyer catheter, but noted there was a lot happening at once. He has not had any pelvic pain, nausea, dysuria, or change in urine output except for the hematuria after his fall earlier. He has noted scrotal edema, present since the inguinal hernia repair, but has not noted any pain from this. In the ED, his Dyer was exchanged, and he is now having in the yellow urine output with some small amounts of old blood clots. However, his family feel that patient's weakness is progressing and they are unable to care for him at home. - Review of Systems All Other Systems: Reviewed and Negative Medications & Allergies Home Medications: Home Medication List Aspirin [Baby Aspirin] 81 mg PO DAILY 06/30/12 [History Confirmed 05/07/24] Isosorbide Mononitrate 30 mg [Imdur 30 MG] 30 mg PO DAILY 09/22/17 [History Confirmed 05/07/24] Metformin HCl [Metformin ER Osmotic] 500 mg PO BID 09/22/17 [History Confirmed 05/07/24] Pioglitazone HCl 15 mg PO DAILY 09/22/17 [History Confirmed 05/07/24] carvediloL [Carvedilol] 3.125 mg PO BID 06/27/19 [History Confirmed 05/07/24] Ascorbic Acid [Vitamin C] 500 mg PO BID 11/18/20 [History Confirmed 05/07/24] Cholecalciferol (Vitamin D3) [Vitamin D3] 5,000 unit PO DAILY 11/18/20 [History Confirmed 05/07/24] Cyanocobalamin (Vitamin B-12) [Vitamin B12] 5,000 mcg PO BID 11/18/20 [History Confirmed 05/07/24] Ferrous Sulfate [Iron] 325 mg PO BID 11/18/20 [History Confirmed 05/07/24] Atorvastatin Calcium 10 mg PO DAILY 05/07/24 [History Confirmed 05/07/24] Empagliflozin [Jardiance] 25 mg PO DAILY 05/07/24 [History Confirmed 05/07/24] Ezetimibe 10 mg [Zetia 10 MG] 10 mg PO DAILY 05/07/24 [History Confirmed 05/07/24] Allergies/Adverse Reactions: Allergies Allergy/AdvReac Type Severity Reaction Status Date / Time No Known Drug Allergies Allergy Verified 05/06/24 23:19 - Past Medical History Past Medical History: Yes Neurological History: No Pertinent History ENT History: No Pertinent History Cardiac History: High Cholesterol, Hypertension Respiratory History: Other Endocrine Medical History: Diabetes Type II Musculoskelatal History: No Pertinent History GI Medical History: No Pertinent History History: No Pertinent History Pyscho-Social History: No Pertinent History Male Reproductive Disorders: No Pertinent History Comment: 2019 - Past Surgical History Past Surgical History: Yes Neuro Surgical History: No Pertinent History Cardiac History: CABG, Cardiac Catheterization, Valve Replacement Respiratory Surgery: No Pertinent History GI Surgical History: No Pertinent History, Hernia Repair Genitourinary Surgical Hx: No Pertinent History Musculskeletal Surgical Hx: Orthopedic Surgery Male Surgical History: No Pertinent History Other Surgical History: 2009 back-slipped disc with 2 annel and 6 screws placed, triple bypass Significant Family History: no pertinent family hx - Social History Smoking Status: Never smoker Exposure to second hand smoke: No Alcohol: None Drug Use: none - Social Determinants of Health Will the patient participate in the screening: Yes Do you worry about a steady place to live?: No Do you have any problems with any of the following?: No known problems In the past 12 months,have you had to go without utilities?: No Have you or anyone in your house had to go without enough: No Transportation Issues: No Has anyone in your support network made you feel unsafe?: No Does the patient want assistance with any of the above?: No - Physical Exam Vital Signs: Vital Signs - 24 hr Temp Pulse Resp BP BP Pulse Ox 05/07/24 04:00 97.1 F 97 H 20 123/57 96 05/07/24 01:48 97.0 F 107 H 22 148/73 97 05/07/24 01:00 94 H 23 144/80 97 05/07/24 00:30 94 H 24 110/70 97 05/07/24 00:00 98 H 20 135/66 97 05/06/24 23:44 100 H 25 H 141/73 97 05/06/24 23:30 101 H 22 139/80 97 05/06/24 23:19 98.8 F 100 H 14 169/81 97 Physical Exam GEN: Lying in bed in no acute distress. HENT: Normocephalic, atraumatic. Moist mucous membranes. EYES: Normal inspection, anicteric sclera, extraocular movements intact. NECK: Supple, full range of motion CV: Regular rate and rhythm, no murmurs, no gallops. No JVD or edema. PULM: Clear to auscultation bilaterally, no work of breathing. On room air. ABD: Nondistended, nontender. Well-healing laparoscopic hernia repair incisions. : Scrotal edema without tenderness or erythema. Dyer catheter in place with yellow urine. MSK: No joint effusions, full range of motion SKIN: No rashes, normal color. NEURO: Face symmetric, no focal motor or sensory deficits. PSYCH: Alert, oriented x 3 Results - Labs Lab/Micro Results: Lab Results-Last 24 Hours 05/07/24 05/07/24 05/07/24 Range/Units 00:00 00:00 00:00 WBC 12.8 H (4.23-9.07) x10^3/uL RBC 3.62 L (4.63-6.08) x10^6/uL Hgb 10.7 L (13.7-17.5) g/dL Hct 32.8 L (40.1-51.0) % MCV 90.6 (79.0-92.2) fL MCH 29.6 (25.7-32.2) pg MCHC 32.6 (32.3-36.5) g/dL RDW 15.0 H (11.6-14.4) % Plt Count 370 H (163-337) x10^3/uL MPV 9.8 (9.4-12.4) fL Gran % 76.0 H (34.0-67.9) % Immature Gran % (Auto) 1.3 H (0.001-0.429) % Nucleat RBC Rel Count 0.0 (0.00-0.2) % Eos # (Auto) 0.35 (0.04-0.54) x10^3/uL Immature Gran # (Auto) 0.16 H (0.001-0.031) x10^3u/L Absolute Lymphs (auto) 1.56 (1.32-3.57) x10^3/uL Absolute Monos (auto) 0.93 H (0.30-0.82) x10^3/uL Absolute Nucleated RBC 0.00 (0.00-0.012) x10^3u/L Lymphocytes % 12.2 L (21.8-53.1) % Monocytes % 7.3 (5.3-12.2) % Eosinophils % 2.7 (0.8-7.0) % Basophils % 0.5 (0.2-1.2) % Absolute Granulocytes 9.70 H (1.78-5.38) x10^3/uL Basophils # 0.07 (0.01-0.08) x10^3/uL PT 10.3 (9.4-12.5) SECONDS INR 0.94 (0.8-3.0) Sodium 136 (135-145) mmol/L Potassium 4.5 (3.5-5.1) mmol/L Chloride 105 (98-107) mmol/L Carbon Dioxide 22 (22-30) mmol/L Anion Gap 14.0 (5-15) MEQ/L BUN 22 H (9-20) mg/dL Creatinine 0.77 (0.66-1.25) mg/dL Estimated GFR 94.5 ML/MIN Glucose 128 H (74-106) mg/dL Calcium 9.2 (8.4-10.2) mg/dL Total Bilirubin 0.60 (0.2-1.3) mg/dL AST 46 (17-59) U/L ALT 48 (0-50) U/L Alkaline Phosphatase 100 (38-126) U/L Serum Total Protein 6.1 L (6.3-8.2) g/dL Albumin 3.3 L (3.5-5.0) g/dL Urine Color (Yellow) Urine Appearance (Clear) Urine pH (4.6-8.0) Ur Specific [place] (1.005-1.030) Urine Protein (Negative) Urine Glucose (UA) (Negative) mg/dL Urine Ketones (Negative) Urine Blood (Negative) Urine Nitrite (Negative) Urine Bilirubin (Negative) Urine Urobilinogen (0.2) mg/dL Ur Leukocyte Esterase (Negative) U Hyaline Cast (Auto) (0-2) /LPF Urine Microscopic RBC (0-5) /HPF Urine Microscopic WBC (0-5) /HPF Ur Epithelial Cells (None Seen) /HPF Urine Bacteria (None Seen) /HPF Urine Culture Reflexed (NO) 05/07/24 05/07/24 05/07/24 Range/Units 00:04 04:05 04:55 WBC 12.3 H (4.23-9.07) x10^3/uL RBC 3.48 L (4.63-6.08) x10^6/uL Hgb 10.4 L (13.7-17.5) g/dL Hct 31.8 L (40.1-51.0) % MCV 91.4 (79.0-92.2) fL MCH 29.9 (25.7-32.2) pg MCHC 32.7 (32.3-36.5) g/dL RDW 15.2 H (11.6-14.4) % Plt Count 347 H (163-337) x10^3/uL MPV 9.7 (9.4-12.4) fL Gran % (34.0-67.9) % Immature Gran % (Auto) (0.001-0.429) % Nucleat RBC Rel Count (0.00-0.2) % Eos # (Auto) (0.04-0.54) x10^3/uL Immature Gran # (Auto) (0.001-0.031) x10^3u/L Absolute Lymphs (auto) (1.32-3.57) x10^3/uL Absolute Monos (auto) (0.30-0.82) x10^3/uL Absolute Nucleated RBC (0.00-0.012) x10^3u/L Lymphocytes % (21.8-53.1) % Monocytes % (5.3-12.2) % Eosinophils % (0.8-7.0) % Basophils % (0.2-1.2) % Absolute Granulocytes (1.78-5.38) x10^3/uL Basophils # (0.01-0.08) x10^3/uL PT (9.4-12.5) SECONDS INR (0.8-3.0) Sodium (135-145) mmol/L Potassium (3.5-5.1) mmol/L Chloride (98-107) mmol/L Carbon Dioxide (22-30) mmol/L Anion Gap (5-15) MEQ/L BUN (9-20) mg/dL Creatinine (0.66-1.25) mg/dL Estimated GFR ML/MIN Glucose (74-106) mg/dL Calcium (8.4-10.2) mg/dL Total Bilirubin (0.2-1.3) mg/dL AST (17-59) U/L ALT (0-50) U/L Alkaline Phosphatase (38-126) U/L Serum Total Protein (6.3-8.2) g/dL Albumin (3.5-5.0) g/dL Urine Color Red A Yellow (Yellow) Urine Appearance Turbid A Cloudy A (Clear) Urine pH 5.0 5.0 (4.6-8.0) Ur Specific [place] 1.015 1.020 (1.005-1.030) Urine Protein 300 A 100 A (Negative) Urine Glucose (UA) >=1000 A >=1000 A (Negative) mg/dL Urine Ketones Trace A 15 A (Negative) Urine Blood Large A Large A (Negative) Urine Nitrite Positive A Negative (Negative) Urine Bilirubin Negative Negative (Negative) Urine Urobilinogen 0.2 0.2 (0.2) mg/dL Ur Leukocyte Esterase Large A Small A (Negative) U Hyaline Cast (Auto) 3-5 A 3-5 A (0-2) /LPF Urine Microscopic RBC >100 A >100 A (0-5) /HPF Urine Microscopic WBC >100 A 51-100 A (0-5) /HPF Ur Epithelial Cells Rare Few (None Seen) /HPF Urine Bacteria Many A None Seen (None Seen) /HPF Urine Culture Reflexed YES ORDERED SEPARATELY (NO) 05/07/24 Range/Units 04:55 WBC (4.23-9.07) x10^3/uL RBC (4.63-6.08) x10^6/uL Hgb (13.7-17.5) g/dL Hct (40.1-51.0) % MCV (79.0-92.2) fL MCH (25.7-32.2) pg MCHC (32.3-36.5) g/dL RDW (11.6-14.4) % Plt Count (163-337) x10^3/uL MPV (9.4-12.4) fL Gran % (34.0-67.9) % Immature Gran % (Auto) (0.001-0.429) % Nucleat RBC Rel Count (0.00-0.2) % Eos # (Auto) (0.04-0.54) x10^3/uL Immature Gran # (Auto) (0.001-0.031) x10^3u/L Absolute Lymphs (auto) (1.32-3.57) x10^3/uL Absolute Monos (auto) (0.30-0.82) x10^3/uL Absolute Nucleated RBC (0.00-0.012) x10^3u/L Lymphocytes % (21.8-53.1) % Monocytes % (5.3-12.2) % Eosinophils % (0.8-7.0) % Basophils % (0.2-1.2) % Absolute Granulocytes (1.78-5.38) x10^3/uL Basophils # (0.01-0.08) x10^3/uL PT (9.4-12.5) SECONDS INR (0.8-3.0) Sodium 136 (135-145) mmol/L Potassium 4.0 (3.5-5.1) mmol/L Chloride 104 (98-107) mmol/L Carbon Dioxide 23 (22-30) mmol/L Anion Gap 12.6 (5-15) MEQ/L BUN 20 (9-20) mg/dL Creatinine 0.75 (0.66-1.25) mg/dL Estimated GFR 95.3 ML/MIN Glucose 118 H (74-106) mg/dL Calcium 8.8 (8.4-10.2) mg/dL Total Bilirubin (0.2-1.3) mg/dL AST (17-59) U/L ALT (0-50) U/L Alkaline Phosphatase (38-126) U/L Serum Total Protein (6.3-8.2) g/dL Albumin (3.5-5.0) g/dL Urine Color (Yellow) Urine Appearance (Clear) Urine pH (4.6-8.0) Ur Specific [place] (1.005-1.030) Urine Protein (Negative) Urine Glucose (UA) (Negative) mg/dL Urine Ketones (Negative) Urine Blood (Negative) Urine Nitrite (Negative) Urine Bilirubin (Negative) Urine Urobilinogen (0.2) mg/dL Ur Leukocyte Esterase (Negative) U Hyaline Cast (Auto) (0-2) /LPF Urine Microscopic RBC (0-5) /HPF Urine Microscopic WBC (0-5) /HPF Ur Epithelial Cells (None Seen) /HPF Urine Bacteria (None Seen) /HPF Urine Culture Reflexed (NO) - Radiology Impressions Radiology Exams & Impressions: Radiology Procedures Category Date Time Status ABDOMEN AND PELVIS W/0 CONTRAS [CT] Stat Exams 05/06/24 23:[address] abdomen/pelvis multiple renal cysts (unchanged, compared to prior CT scan done in 2018). Some stranding of the perinephric bilateral fat planes, likely post inflammatory. Air speck in the left retroperitoneal space along the G erota's fascia anteriorly. Fat stranding on the left side extending into the left inguinal canal and a left inguinal hernia which contains omental fat and fluid. Assessment/Plan (1) Generalized weakness Current Visit: Yes Status: Acute Assessment & Plan: 73-year-old man with history of diabetes, hypertension, coronary disease, who presents with gross hematuria after a fall as well as generalized weakness after recent hernia repair. ## Gross hematuria, urine retention appears to be traumatic, likely with the Dyer getting in someway pulled on her dislodged after his slip and fall in the bathroom. Dyer has been replaced, with apparent effective tamponade of any prior bleeding. He is no longer having gross hematuria, although he still having small blood clots. Initially ED had some concern for possible acute cystitis and patient was given dose of Rocephin. However, there were no symptoms to support this, and it is difficult to interpret signs of urinary infection with the contamination of large amounts of blood. Repeat urinalysis shows blood still present, but no further identification of any "bacteria", as well as resolution of prior elevated leukocyte esterase. He still has some WBCs, but this is to be expected when they are are over 500 RBCs present. As well, the inflammatory changes noted on CT scan are to be expected after repair of left inguinal hernia. He does have some mild systemic leukocytosis, but this could be as well a postinflammatory reaction to his hernia repair. He has mild anemia, this appears to be stable and not secondary to his hematuria. He has scrotal edema, but this is a postsurgical change due to drainage from his inguinal canals into the scrotum, worsened by patient's chronic recumbency due to postsurgical weakness (see below) Monitor Dyer catheter Continue to flush for any clots present Discontinue Rocephin and Lasix patient has more clear evidence of acute cystitis Follow-up with urology as an outpatient as scheduled for trial of voiding in a few weeks ## Generalized weakness patient has been poorly recovering from his prior left inguinal hernia repair, with decreased mobility. At baseline, patient walks independently, but now is requiring a rolling walker, and even then has limited mobility. PT/OT evaluation reimbursement manager to evaluate for likely need for rehabilitative placement ## Type 2 diabetes only on oral medications at home Hold home oral medications as inpatient Placed on moderate dose sliding scale insulin Diabetic diet ## Hypertension blood pressure controlled. Continue home carvedilol 3.125 BID ## CAD Continue home atorvastatin 10, carvedilol 3.125 BID, Zetia 10, and Imdur 30 daily Holding home aspirin in the setting of acute hematuria, but can likely resume tomorrow CODE STATUS: Full code Prophylaxis: Patient is high risk for VTE, with Kemi score of 7. However, do not want to give pharmacologic prophylaxis in the setting of active hematuria. Place SCDs, but once hematuria has fully resolved, can start on Lovenox 40 mg daily Diet: Diabetic Dispo: Place in observation. Expect patient will likely need placement for discharge, perhaps for [facility] for rehabilitation. Entirety of encounter took place via live audio/video telemedicine device, with remote physician and patient in hospital, with the assistance of bedside nurse. Code(s): R53.1 - WEAKNESS Telemedicine Encounter - Telemedicine Encounter Telemedicine Encounter: "The entirety of this encounter was performed via Telemedicine" This visit was performed using real-time audio and video connection between my location and thepatients locationwith the assistance of a surrogateat the patients location. Written or verbal consent was obtained from the pat ient/guardian to perform this visit usingsynchronoustelemedicine technology. Any patient questions regarding the telemedicine interaction were answered.
[2024-05-07] MEDS: Imdur 30 MG PO SCH (09:26)
[2024-05-07] MEDS: FEOSOL 325 MG PO SCH (09:26)
[2024-05-07] MEDS: Coreg 3.125 MG PO SCH (09:26)
[2024-05-07] MEDS: Zetia 10 MG PO SCH (09:26)
[2024-05-07] MEDS: Zocor 10MG PO SCH (09:26)
[2024-05-07] MEDS ORDERED: ROCEPHIN 1 GM / 100 ML NaCl 1 GM/100 ML IVPB IV SCH (10:00)
--- NOTE | 2024-05-07 14:05 | XRAY ---
Indication: prison placement. Comparison: August 15, 2022 Portable chest less inflated crowding both lung bases. No focal infiltrate, consolidation, or large effusion. Heart not enlarged again with cardiac valve replacement. Bony thorax intact again with osteopenia and mild degenerative changes. Impression: Nonacute underinflated chest again with chronic features.
--- NOTE | 2024-05-08 05:22 | PCM.NOTE ---
Date and Time: 05/08/24 0516 Subjective Assessment: 73-year-old man with history of type 2 diabetes, hypertension, and CAD, who presents from home with hematuria. Patient underwent left inguinal hernia repair on 04/25, complicated by postoperative urinary retention requiring placement of an indwelling Dyer catheter. Patient was eventually discharged on 04/28, but he has been having severe generalized weakness, with inability to ambulate independently compared to his baseline. Initially was staying with his granddaughter, then recently moved to his son's for care. As he was getting out of the shower today, he fell and slipped to the floor, requiring multiple people to pick him up. He did not have any head trauma or any visible bruising. However, afterward, he had onset of gross hematuria. He did not recall any particular trauma to the Dyer catheter, but noted there was a lot happening at once. He has not had any pelvic pain, nausea, dysuria, or change in urine output except for the hematuria after his fall earlier. He has noted scrotal edema, present since the inguinal hernia repair, but has not noted any pain from this. In the ED, his Dyer was exchanged, and he is now having in the yellow urine output with some small amounts of old blood clots. However, his family feel that patient's weakness is progressing and they are unable to care for him at home. Ucult with gram - ID- IP treatment with ceftriaxone. 05/08/24: Met with patient bedside. Endorses continued weakness and mild back pain but otherwise no complaints. FC with clear yellow urine - no hematuria noted. Ucult with gram negative ID- started on ceftriaxone - follow culture. Plans for discharge to rehab once approval obtained. - Review of Systems Constitutional: No Symptoms Eyes: No Symptoms Ears, Nose, & Throat: No Symptoms Respiratory: No Symptoms Cardiac: No Symptoms Abdominal/Gastrointestinal: No Symptoms Genitourinary Symptoms: No Symptoms, Other (fc) Musculoskeletal: Back Pain Skin: No Symptoms Neurological: No Symptoms Psychological: No Symptoms Endocrine: No Symptoms Hematologic/Lymphatic: No Symptoms Immunological/Allergic: No Symptoms Objective Exam General Appearance: no apparent distress Neurologic Exam: alert, oriented x 3, cooperative Skin Exam: normal color Eye Exam: PERRL Ears, Nose, Throat Exam: normal ENT inspection Neck Exam: normal inspection Respiratory Exam: normal breath sounds, lungs clear Cardiovascular Exam: regular rate/rhythm, normal heart sounds Gastrointestinal/Abdomen Exam: soft, normal bowel sounds Extremity Exam: normal inspection Back Exam: normal inspection Male Genitalia Exam: other (scrotal edema FC) Rectal Exam: deferred Objective Data Vital Signs: Vital Signs - 24 hr Temp Pulse Resp BP Pulse Ox 05/08/24 00:00 97.2 F 62 18 128/62 95 05/07/24 20:00 97.8 F 81 18 135/61 97 05/07/24 16:00 97.8 F 83 16 129/65 94 L 05/07/24 12:00 97.7 F 96 H 18 143/71 95 05/07/24 07:43 97.9 F 109 H 16 128/74 94 L Pain Assessment - Last Documented Pain Intensity 0 Intake and Output: Intake & Output 05/05/24 05/06/24 05/07/24 05/08/24 11:59 11:59 11:59 11:59 Intake Total 700 1420 Output Total 350 2300 Balance 350 -880 Weight 111.2 kg Lab Results: Lab Results-Last 24 Hours 05/07/24 05/07/24 05/07/24 Range/Units 04:55 04:55 07:23 WBC 12.3 H (4.23-9.07) x10^3/uL RBC 3.48 L (4.63-6.08) x10^6/uL Hgb 10.4 L (13.7-17.5) g/dL Hct 31.8 L (40.1-51.0) % MCV 91.4 (79.0-92.2) fL MCH 29.9 (25.7-32.2) pg MCHC 32.7 (32.3-36.5) g/dL RDW 15.2 H (11.6-14.4) % Plt Count 347 H (163-337) x10^3/uL MPV 9.7 (9.4-12.4) fL Sodium 136 (135-145) mmol/L Potassium 4.0 (3.5-5.1) mmol/L Chloride 104 (98-107) mmol/L Carbon Dioxide 23 (22-30) mmol/L Anion Gap 12.6 (5-15) MEQ/L BUN 20 (9-20) mg/dL Creatinine 0.75 (0.66-1.25) mg/dL Estimated GFR 95.3 ML/MIN Glucose 118 H (74-106) mg/dL POC Glucometer 122 H (74 to 106) mg/dL Calcium 8.8 (8.4-10.2) mg/dL 05/07/24 05/07/24 05/07/24 Range/Units 11:19 16:17 22:51 WBC (4.23-9.07) x10^3/uL RBC (4.63-6.08) x10^6/uL Hgb (13.7-17.5) g/dL Hct (40.1-51.0) % MCV (79.0-92.2) fL MCH (25.7-32.2) pg MCHC (32.3-36.5) g/dL RDW (11.6-14.4) % Plt Count (163-337) x10^3/uL MPV (9.4-12.4) fL Sodium (135-145) mmol/L Potassium (3.5-5.1) mmol/L Chloride (98-107) mmol/L Carbon Dioxide (22-30) mmol/L Anion Gap (5-15) MEQ/L BUN (9-20) mg/dL Creatinine (0.66-1.25) mg/dL Estimated GFR ML/MIN Glucose (74-106) mg/dL POC Glucometer 128 H 153 H 130 H (74 to 106) mg/dL Calcium (8.4-10.2) mg/dL Radiology Exams: Radiology Procedures Category Date Time Status ABDOMEN AND PELVIS W/0 CONTRAS [CT] Stat Exams 05/06/24 23:23 Completed CHEST 1 VIEW (PORTABLE) Urgent Exams 05/07/24 13:25 Completed Multi-Disciplinary Progress Notes: Multi-Disciplinary Progress Notes 05/07/24 14:33 Case Management Note by Anahi Walker CALLED AND VERIFIED THAT PATIENT HAS A FOLLOW UP APT WITH DR. ALLAN (UROLOGY) 05/15 AT 1245IN [facility] Initialized on 05/07/24 14:33 - END OF NOTE 05/07/24 13:30 (created 05/07/24 14:21) Case Management Note by Anahi Walker PAPERWORK COMPLETE- NO LEVEL II REQUIRED. COPIES PLACED IN CHART AND SENT WITH REFERRAL PACKET REFERRAL PACKET SENT TO [facility]- WILL NEED TO SEND PT EVAL AND CHEST XRAY WHEN AVAILABLE Initialized on 05/07/24 14:21 - END OF NOTE Assessment/Plan (1) Hematuria Current Visit: Yes Status: Acute Assessment & Plan: appears to be traumatic, likely with the Dyer getting in someway pulled on her dislodged after his slip and fall in the bathroom. Dyer has been replaced, with apparent effective tamponade of any prior bleeding. Monitor Dyer catheter - currently with clear urine - no hematuria noted Continue to flush for any clots present Ucult with gram - ID - started on rocephin Follow-up with urology as an outpatient as scheduled for trial of voiding in a few weeks -CMP/cbc reviewed and HGB stable at 10.0 Code(s): R31.9 - HEMATURIA, UNSPECIFIED (2) Generalized weakness Current Visit: Yes Status: Acute Assessment & Plan: PT/OT evaluation SNF pending Code(s): R53.1 - WEAKNESS (3) CAD (coronary artery disease) Current Visit: Yes Status: Acute Assessment & Plan: Continue home atorvastatin 10, carvedilol 3.125 BID, Zetia 10, and Imdur 30 daily Initially held aspirin in the setting of acute hematuria -resume aspirin Code(s): I25.10 - ATHSCL HEART DISEASE OF [place] CORONARY ARTERY W/O ANG PCTRS (4) HTN (hypertension) Current Visit: Yes Status: Acute Assessment & Plan: -continue home meds -BP stable Code(s): I10 - ESSENTIAL (PRIMARY) HYPERTENSION (5) Fall Current Visit: Yes Status: Acute Assessment & Plan: -PT eval while IP - patient to discharge to SNF for continued rehab and strengthening Code(s): W19.XXXA - UNSPECIFIED FALL, INITIAL ENCOUNTER (6) Type 2 diabetes mellitus Current Visit: No Status: Acute Assessment & Plan: Hold home oral medications as inpatient Placed on moderate dose SSI ADA diet CODE STATUS: Full code Prophylaxis: Patient is high risk for VTE, with Kemi score of 7. However, do not want to give pharmacologic prophylaxis in the setting of active hematuria. Place SCDs, but once hematuria has fully resolved, can start on Lovenox 40 mg daily Diet: Diabetic Dispo: Place in observation
[2024-05-08 05:26] LABS: Hematocrit 30.7 % (40.1-51.0); Mean Cell Volume 91.4 fL (79.0-92.2); Mean Corpuscular Hemoglobin 29.8 pg (25.7-32.2); Mean Corpuscular Hgb Concent. 32.6 g/dL (32.3-36.5); Mean Platelet Volume 9.9 fL (9.4-12.4); Platelet Count 400 x10^3/uL (163-337); Red Blood Count 3.36 x10^6/uL (4.63-6.08); Red Cell Distribution Width 15.4 % (11.6-14.4)
[2024-05-08 05:45] LABS: ANION GAP 12.5 MEQ/L (5-15); Calcium 8.7 mg/dL (8.4-10.2); Creatinine 1 0.81 mg/dL (0.66-1.25); EST GLOMERULAR FILTRATION RATE 93.1 ML/MIN
[2024-05-08 07:07] VITALS: RESP 16
[2024-05-08] MEDS: ROCEPHIN 1 GM / 100 ML NaCl 1 GM/100 ML IVPB IV SCH (10:08)
[2024-05-08] MEDS: ECOTRIN 81 MG PO SCH (10:08)
[2024-05-08 11:31] VITALS: O2SAT 96
[2024-05-08 16:13] VITALS: BP 141/66; PULSE 74; TEMP 97.9
--- NOTE | 2024-05-08 16:27 | PCM.DS ---
Discharge Summary Date of Admission: 05/07/24 01:21 Date of Discharge: 05/08/24 Admitting Physician: DEMARIO SHELTON MD Primary Care Provider: VINICIUS RODRIGUEZ Allergies Allergies No Known Drug Allergies Allergy (Verified 05/06/24 23:19) Hospital Summary - Hospital Course Hospital Course: 3-year-old man with history of type 2 diabetes, hypertension, and CAD, who presents from home with hematuria. Patient underwent left inguinal hernia repair on 04/25, complicated by postoperative urinary retention requiring placement of an indwelling Dyer catheter. Patient was eventually discharged on 04/28, but he has been having severe generalized weakness, with inability to ambulate independently compared to his baseline. Initially was staying with his granddaughter, then recently moved to his son's for care. As he was getting out of the shower today, he fell and slipped to the floor, requiring multiple people to pick him up. He did not have any head trauma or any visible bruising. However, afterward, he had onset of gross hematuria. He did not recall any par ticular trauma to the Dyer catheter, but noted there was a lot happening at once. He has not had any pelvic pain, nausea, dysuria, or change in urine output except for the hematuria after his fall earlier. He has noted scrotal edema, present since the inguinal hernia repair, but has not noted any pain from this. In the ED, his Dyer was exchanged, and he is now having in the yellow urine output with some small amounts of old blood clots. However, his family feel that patient's weakness is progressing and they are unable to care for him at home. Ucult with gram - ID- IP treatment with ceftriaxone. Physical therapy evaluated patient due to weakness with recommendations for rehab stay to address weakness and decreased gait independence/activity intolerance. Hematuria has resolved. Patient to follow up with urology OP as scheduled. Will treat UA with Levaquin - follow cultures- will alert NH with any abx changes with final sensitivity. Patient agreeable to plan and ready for discharge to halfway. Discharge Note New Diagnosis: Hematuria/UTI New Medications:Levaquin Follow Up: Urology I spent 35 minutes [id number] with the patient on the day of discharge performing discharge exam, discussing hospital stay and discharge instructions with patient and caregivers, preparation of discharge records, prescriptions & referral forms and addressing any questions/concerns the patient had as documented above. - Vitals & Intake/Output Vital Signs: Vital Signs Temperature 97.9 F 05/08/24 16:00 Pulse Rate 74 05/08/24 16:00 Respiratory Rate 16 05/08/24 16:00 Blood Pressure 141/66 05/08/24 16:00 O2 Sat by Pulse Oximetry 96 05/08/24 16:00 Intake & Output: Intake & Output 05/06/24 05/07/24 05/08/24 05/09/24 11:59 11:59 11:59 11:59 Intake Total 700 2000 380 Output Total 350 2300 Balance 350 -300 380 Weight 111.2 kg - Lab Result Diagrams: 05/08/24 05:16 05/08/24 05:16 Lab Results-Last 24 Hrs: Lab Results-Last 24 Hours 05/07/24 05/08/24 05/08/24 Range/Units 22:51 05:16 05:16 WBC 11.0 H (4.23-9.07) x10^3/uL RBC 3.36 L (4.63-6.08) x10^6/uL Hgb 10.0 L (13.7-17.5) g/dL Hct 30.7 L (40.1-51.0) % MCV 91.4 (79.0-92.2) fL MCH 29.8 (25.7-32.2) pg MCHC 32.6 (32.3-36.5) g/dL RDW 15.4 H (11.6-14.4) % Plt Count 400 H (163-337) x10^3/uL MPV 9.9 (9.4-12.4) fL Sodium 137 (135-145) mmol/L Potassium 4.0 (3.5-5.1) mmol/L Chloride 106 (98-107) mmol/L Carbon Dioxide 23 (22-30) mmol/L Anion Gap 12.5 (5-15) MEQ/L BUN 18 (9-20) mg/dL Creatinine 0.81 (0.66-1.25) mg/dL Estimated GFR 93.1 ML/MIN Glucose 127 H (74-106) mg/dL POC Glucometer 130 H (74 to 106) mg/dL Calcium 8.7 (8.4-10.2) mg/dL 05/08/24 05/08/24 Range/Units 07:19 11:19 WBC (4.23-9.07) x10^3/uL RBC (4.63-6.08) x10^6/uL Hgb (13.7-17.5) g/dL Hct (40.1-51.0) % MCV (79.0-92.2) fL MCH (25.7-32.2) pg MCHC (32.3-36.5) g/dL RDW (11.6-14.4) % Plt Count (163-337) x10^3/uL MPV (9.4-12.4) fL Sodium (135-145) mmol/L Potassium (3.5-5.1) mmol/L Chloride (98-107) mmol/L Carbon Dioxide (22-30) mmol/L Anion Gap (5-15) MEQ/L BUN (9-20) mg/dL Creatinine (0.66-1.25) mg/dL Estimated GFR ML/MIN Glucose (74-106) mg/dL POC Glucometer 124 H 154 H (74 to 106) mg/dL Calcium (8.4-10.2) mg/dL Micro Results-Entire Visit: Microbiology 05/07/24 04:05 Urine Culture - Preliminary Urine, Indwelling Catheter GRAM NEGATIVE ID AND SENSITIVITY PENDING 05/07/24 00:04 Urine Culture - Preliminary Clean Catch Midstream GRAM NEGATIVE ID AND SENSITIVITY PENDING Accuchecks Date 05/08/24 Date 05/08/24 Date 05/07/24 Time 11:31 Time 07:25 Time 22:00 - Radiology Exams Ordered Rad Exams-Entire Visit: Radiology Procedures Category Date Time Status ABDOMEN AND PELVIS W/0 CONTRAS [CT] Stat Exams 05/06/24 23:23 Completed CHEST 1 VIEW (PORTABLE) Urgent Exams 05/07/24 13:25 Completed - Procedures and Test Procedures and Tests throughout Hospitalization: Therapy Orders & Screens 05/07/24 01:35 PT Eval & Treat ( Order) ONCE Reason for Eval:: Post operative left inguinal hernia weakness. Diagnosis: Weakness Discharge Exam General Appearance: no apparent distress Neurologic Exam: alert, oriented x 3, cooperative Eye Exam: PERRL Ears, Nose, Throat Exam: normal ENT inspection Neck Exam: normal inspection Respiratory Exam: normal breath sounds, lungs clear Cardiovascular Exam: regular rate/rhythm, normal heart sounds Gastrointestinal/Abdomen Exam: soft, normal bowel sounds Male Genitalia Exam: other (Dyer cath with clear yellow urine - no hematuria) Rectal Exam: deferred Back Exam: normal inspection Extremity Exam: normal inspection Skin Exam: normal color Final Diagnosis/Problem List - Final Discharge Diagnosis/Problem (1) Hematuria Current Visit: Yes Status: Resolved Code(s): R31.9 - HEMATURIA, UNSPECIFIED (2) Generalized weakness Current Visit: Yes Status: Acute Code(s): R53.1 - WEAKNESS (3) CAD (coronary artery disease) Current Visit: Yes Status: Acute Code(s): I25.10 - ATHSCL HEART DISEASE OF [place] CORONARY ARTERY W/O ANG PCTRS (4) HTN (hypertension) Current Visit: Yes Status: Chronic Code(s): I10 - ESSENTIAL (PRIMARY) HYPERTENSION (5) Fall Current Visit: Yes Status: Acute Code(s): W19.XXXA - UNSPECIFIED FALL, INITIAL ENCOUNTER (6) Type 2 diabetes mellitus Current Visit: No Status: Chronic (7) UTI (urinary tract infection) Current Visit: Yes Status: Acute Code(s): N39.0 - URINARY TRACT INFECTION, SITE NOT SPECIFIED - Discharge Discharge Date: 05/08/24 Disposition: DC TO ANY "OTHER" [facility] Condition: Stable Prescriptions: New levoFLOXacin [Levofloxacin] 750 mg PO DAILY 5 Days tablet Continue Aspirin [Baby Aspirin] 81 mg PO DAILY Isosorbide Mononitrate 30 mg [Imdur 30 MG] 30 mg PO DAILY Pioglitazone HCl 15 mg PO DAILY Metformin HCl [Metformin ER Osmotic] 500 mg PO BID carvediloL [Carvedilol] 3.125 mg PO BID Cholecalciferol (Vitamin D3) [Vitamin D3] 5,000 unit PO DAILY Ascorbic Acid [Vitamin C] 500 mg PO BID Ferrous Sulfate [Iron] 325 mg PO BID Cyanocobalamin (Vitamin B-12) [Vitamin B12] 5,000 mcg PO BID Empagliflozin [Jardiance] 25 mg PO DAILY Atorvastatin Calcium 10 mg PO DAILY Ezetimibe 10 mg [Zetia 10 MG] 10 mg PO DAILY Additional Instructions: [facility] ORDERS: 2000 AARON DIET ACHS ACCU CHECKS RECHECK UA 1 WEEK AFTER COMPLETION OF ANTIBIOTICS ROUTINE CATHETER CARE- SEE F/U APT WITH UROLOGY 05/15 PT/OT EVAL AND TREAT SEE ATTACHED MED LIST Follow up with: VINICIUS RODRIGUEZ [Primary Care Provider] - 05/16/24 1:00 pm ERIC ALLAN [NON-STAFF PHY W/O PRIVILEGES] - 05/15/24 12:45 pm
== END 2024-05-08 16:57 ==
LOC: ED 23:05 → MED SURG 05-07 01:21
PROVIDERS: ADMIT Internal Medicine; ATTEND Internal Medicine
DX: R31.9 Hematuria, unspecified (principal); R53.1 Weakness; I25.10 Atherosclerotic heart disease of native coronary artery without angina pectoris; I10 Essential (primary) hypertension; W19.XXXA Unspecified fall, initial encounter; E11.9 Type 2 diabetes mellitus without complications; N39.0 Urinary tract infection, site not specified; Z79.899 Other long term (current) drug therapy; E78.5 Hyperlipidemia, unspecified; Z95.0 Presence of cardiac pacemaker
CPT/HCPCS: 36415; 51702; 71045; 74176; 80048; 80053; 81001; 82947; 85025; 85027; 85610; 87086; 97110; 97161; 99285; Q3014; 87077; 87186; 93268; G0378; J0696; A9270-GY